=== PATIENT | female | born 1950 | race Caucasian/White ===

== ENCOUNTER 2021-08-11 08:27 | Outpatient (REF) | payer MEDICARE, SELFPAY ==
[2021-08-11 09:59] LABS: MANUAL DIFF FLAG NO
[2021-08-11 10:22] LABS: Basophils Percent Auto 0.9 % (0-2); Eosinophils Percent Auto 0.9 % (0-4); Hematocrit 36.3 % (37.0-47.0); Hemoglobin 11.6 g/dl (12.0-16.0); Imm Gran Abs Auto 0.01 X10*3/uL (0.00-0.03); Imm Gran Pct Auto 0.2 % (0.0-0.4); Lymphocytes Absolute Auto 1.2 X10*3/uL (1.2-4.9); Lymphocytes Percent Auto 27.2 % (20-40); Mean Corpuscular Volume 97.1 fL (80.0-98.0); Mean Platelet Volume 10.7 fL (9.4-12.3); Monocytes Absolute Auto 0.4 X10*3/uL (0.1-1.2); Monocytes Percent Auto 8.8 % (2-11); Neutrophils Absolute Auto 2.7 x10*3/uL (2.0-8.3); Platelet Count 227 X10*3/uL (160-400); Red Blood Count 3.74 X10*6/uL (4.20-5.50); Red Cell Distribution Width 14.8 % (11.0-16.0); White Blood Count 4.3 X10*3/uL (4.8-10.8)
[2021-08-11 10:53] LABS: Alanine Aminotransferase 11 U/L (0-31); Aspartate Amino Transferase 20 U/L (5-31); C Reactive Protein 0.23 mg/dL (< or = 0.50); Estimated Glomerular Filt Rate > 60
[2021-08-11 11:16] LABS: Erythrocyte Sedimentation Rate 21 MM/HR (0-20)
== END 2021-08-11 08:28 | disposition home or self-care (01) ==
LOC: HO.LAB 08:27
PROVIDERS: PCP Internal Medicine; Visit Provider Internal Medicine Rheumatology
DX: M05.9 Rheumatoid arthritis with rheumatoid factor, unspecified (principal); M16.0 Bilateral primary osteoarthritis of hip; R63.5 Abnormal weight gain; Z79.899 Other long term (current) drug therapy
CPT/HCPCS: 36415; 82565; 84443; 84450; 84460; 85025; 85652; 86140

== ENCOUNTER 2021-10-27 11:03 | Outpatient (REF) | payer MEDICARE, SELFPAY ==
[2021-10-27 11:31] LABS: MANUAL DIFF FLAG NO
[2021-10-27 12:31] LABS: Basophils Absolute Auto 0.1 X10*3/uL (0.0-0.2); Basophils Percent Auto 1.2 % (0-2); Eosinophils Absolute Auto 0.1 X10*3/uL (0.0-0.4); Eosinophils Percent Auto 1.2 % (0-4); Hematocrit 34.8 % (37.0-47.0); Hemoglobin 11.3 g/dl (12.0-16.0); Imm Gran Abs Auto 0.01 X10*3/uL (0.00-0.03); Imm Gran Pct Auto 0.2 % (0.0-0.4); Lymphocytes Absolute Auto 1.3 X10*3/uL (1.2-4.9); Lymphocytes Percent Auto 29.1 % (20-40); Mean Corpuscular HGB Conc 32.5 g/dl (31.0-35.0); Mean Corpuscular Hemoglobin 31.2 pg (27.0-33.0); Mean Corpuscular Volume 96.1 fL (80.0-98.0); Mean Platelet Volume 11.3 fL (9.4-12.3); Monocytes Absolute Auto 0.4 X10*3/uL (0.1-1.2); Monocytes Percent Auto 10.3 % (2-11); Neutrophils Absolute Auto 2.5 x10*3/uL (2.0-8.3); Platelet Count 246 X10*3/uL (160-400); Red Blood Count 3.62 X10*6/uL (4.20-5.50); Red Cell Distribution Width 14.4 % (11.0-16.0); White Blood Count 4.3 X10*3/uL (4.8-10.8)
[2021-10-27 12:57] LABS: Alanine Aminotransferase 11 U/L (0-31); Aspartate Amino Transferase 19 U/L (5-31); Estimated Glomerular Filt Rate > 60
[2021-10-27 13:10] LABS: Erythrocyte Sedimentation Rate 18 MM/HR (0-20)
== END 2021-10-27 11:04 | disposition home or self-care (01) ==
LOC: HO.LAB 11:03
PROVIDERS: Visit Provider Internal Medicine Rheumatology
DX: M05.9 Rheumatoid arthritis with rheumatoid factor, unspecified (principal); Z79.899 Other long term (current) drug therapy
CPT/HCPCS: 36415; 82565; 84450; 84460; 85025; 85652; 86140

== ENCOUNTER 2021-12-09 07:53 | Emergency (ER) | payer MEDICARE, SELFPAY ==
--- NOTE | ~2021-12-09 | XR_ITS ---
EXAMINATION: XR CHEST CLINICAL INFORMATION: Chest pain. COMPARISON: None TECHNIQUE: Frontal view of the chest was obtained. FINDINGS: No significant abnormality is noted involving the heart, lungs, mediastinum, bony thorax or soft tissues. XR/XR chest 1V IMPRESSION: No acute cardiopulmonary process.
--- NOTE | 2021-12-09 07:52 | ECG_ITS ---
Test Reason : CHEST PAIN Blood Pressure : / mmHG Vent. Rate : 096 BPM Atrial Rate : 096 BPM P-R Int : 156 ms QRS Dur : 086 ms QT Int : 344 ms P-R-T Axes : 056 036 043 degrees QTc Int : 434 ms Normal sinus rhythm Cannot rule out Anterior infarct , age undetermined Abnormal ECG No previous ECGs available Referred By: Whitney Pickering Electronically Signed By:GLADYS SALCEDO
[2021-12-09 08:10] VITALS: BP 149/75; PULSE 97; RESP 13; TEMP 37.2; O2SAT 95; BMI 23.8
[2021-12-09 08:14] VITALS: BP 149/75; PULSE 92; RESP 16; TEMP 37.2; O2SAT 96
--- NOTE | 2021-12-09 08:17 | ED_ITS ---
HPI - Chest Pain General Chief Complaint: Chest Pain Stated Complaint: chest pain, dizzy Time Seen by Provider: 12/09/21 08:05 Source: patient Mode of arrival: ambulatory History of Present Illness HPI narrative: 71-year-old female with a past medical history rheumatoid arthritis presenting to the ED complaining chest tightness/pressure and feeling like she can not catch her breath since last night. Admits symptoms have improved since onset. Does report feeling lightheaded this morning. Denies headache, cough, fever, chills, abdominal pain, nausea/vomiting, pedal edema, calf pain. Does admit to being COVID-19 positive about 3 weeks ago MD complaint: chest heaviness and chest discomfort Onset (ago): hour(s) Related Data Home Medications Medication Instructions Recorded Confirmed cholecalciferol (vitamin D3) 25 25 mcg PO DAILY 08/11/21 08/11/21 mcg (1,000 unit) capsule hydroxychloroquine 200 mg tablet 200 mg PO DAILY 08/11/21 08/11/21 (Plaquenil) meloxicam 15 mg tablet 15 mg PO DAILY PRN 08/11/21 08/11/21 sennosides 8.6 mg-docusate sodium 1 tab-cap PO BEDTIME PRN 08/11/21 08/11/21 50 mg tablet (Senokot-S) Previous Rx's Medication Instructions Recorded methotrexate sodium 2.5 mg tablet 15 mg PO QWEEK #72 tabs 08/11/21 folic acid 1 mg tablet 1 mg PO DAILY #90 tabs 09/09/21 cefuroxime axetil 250 mg tablet 250 mg PO BID 7 days #14 tabs 12/09/21 Allergies Allergy/AdvReac Type Severity Reaction Status Date / Time diphtheria,pertussis Allergy Severe throat Verified 08/11/21 08:52 (acellular),te closing [From Boostrix Tdap] influenza virus vaccine tv Allergy Severe throat Verified 08/11/21 08:52 splt (4 yr,up) closing [From Fluvirin] mannitol [From Reclast] Allergy Severe throat Verified 08/11/21 08:52 closing water for injection,sterile Allergy Severe throat Verified 08/11/21 08:52 [From Reclast] closing zoledronic acid Allergy Severe throat Verified 08/11/21 08:52 [From Reclast] closing Sulfa (Sulfonamide Allergy Intermediate rash Verified 08/11/21 08:50 Antibiotics) Review of Systems Review of Systems: Constitutional: No Fever, No Chills, No Fatigue, No Malaise ENT/Mouth: No Ear Pain, No Nasal Congestion, No sore throat, No Rhinorrhea, No Swallowing Difficulty Eyes: No Eye Pain, No Swelling, No Redness, No Foreign Body, No Discharge, No Vision Changes Cardiovascular: + Chest Pain, + SOB, No Dyspnea on Exertion, No Orthopnea, No Edema, No Palpitations Respiratory: No Cough, No Sputum, No Wheezing, No Dyspnea Gastrointestinal: No Nausea, No Vomiting, No Diarrhea, No Constipation, No Abdominal pain Genitourinary: No Dysuria, No Urinary Frequency, No Hematuria, No Urinary Incontinence/retention, No Flank Pain Musculoskeletal: No joint pain, No Myalgias, No Joint Swelling Skin: No Skin Lesions, No rash Neuro: No Weakness, No Numbness, No Paresthesias, No Loss of Consciousness, + lightheaded, No Headache Yes all other systems are reviewed and are negative Constitutional: Constitutional: Reports as per [facility] Past Medical History Attestation statement: The following information was validated with the patient. Medical History (Updated 12/09/21 @ 12:06 by JALEEL Rockwell) Long-term use of immunosuppressant medication Osteoarthritis of hips, bilateral Seropositive rheumatoid arthritis Social History Social History (Updated 08/11/21 @ 08:39 by Edy Disla LPN) Household Members: Significant Other Housing: House Are you a primary daycare manager to a significant other at home: No Do you presently have visiting nurse or other home services: No Alcohol intake: never Patient Tobacco Use Status: Never used Tobacco Use of substances other than those prescribed or required for medical reasons: No Advance Directives: No Advance Directives Information Provided: Yes service: No Current occupation: [employer] Physical Exam Vital Signs: Vital Signs: Last Vital Signs Temp 98.5 F 12/09/21 09:49 Pulse 91 12/09/21 09:49 Resp 14 12/09/21 09:49 BP 141/79 H 12/09/21 09:49 Pulse Ox 98 12/09/21 09:49 O2 Del Method 12/09/21 09:49 BMI result Body Mass Index 23.8 Const: General: cooperative, healthy appearing and no acute distress Orientation/consciousness: patient oriented x3 Limitations: no limitations HEENT: Head: Yes normal to inspection and Yes atraumatic Ears: hearing grossly normal bilaterally General nose exam: Normal external nose present Face and sinus: Yes normal facial exam Eyes: General: appearance normal, both eyes and all related structures EOM: EOMs intact bilaterally Neck: Neck: Yes normal visual inspection and Yes no meningeal signs Resp: Effort & Inspection: normal respiratory effort and no respiratory distress Auscultation: clear to auscultation bilaterally, crackles bilateral at the base, no rales, no rhonchi and no wheezes Cardio: Rate: regular rate Heart sounds: S1 normal heart sound present and S2 normal heart sound present GI: Inspection: Yes normal to inspection Palpation (GI): Soft to palpation, nontender, no guarding and not rigid : General: Yes no CVA tenderness Back/Spine/Pelvis: Back: no CVA tenderness Skin: Rashes: no rashes Wounds: no wounds Neuro: General: patient oriented x3, tone normal and no meningeal signs Gait exam (Neuro): Normal gait present Extrem: General: Yes normal to inspection, Yes no pedal edema and Yes no calf tenderness Course Course Course Narrative: -no leukocytosis. H&H stable. Initial troponin 5.9 > will obtain 3 hour repeat. UA infected patient given p.o. Ceftin -BNP 104 XR chest 1V IMPRESSION: No acute cardiopulmonary process. -1204--repeat troponin 4.4, VT unlikely. Results discussed with patient including worrisome signs and symptoms and strict return precautions, and when to return to the emergency department. They verbalized understanding and feel safe for discharge at this time. MDM - Chest Pain MDM Narrative Medical decision making narrative: 71-year-old female with a past medical history rheumatoid arthritis presenting to the ED complaining chest tightness/pressure and feeling like she can not catch her breath since last night. On exam VSS, NAD, well appearing, lungs with slight bibasilar crackles, no calf tenderness or pedal edema. Concern for ACS vs ? CHF vs pneumonia. Symptoms atypical for PE/DVT. Lower suspicion for viral syndrome Plan: EKG, labs, UA, CXR, orthostatics, re-evaluate Differential Diagnosis Differential diagnosis: Likely stable angina, unstable angina pectoris, atypical chest pain, st elevation myocardial infarction and chest pain Medical Records Data Attestation: I reviewed the patient's medical records. Lab Data Attestation: I reviewed the patient's lab results. Result diagrams: 12/09/21 08:32 12/09/21 08:32 Labs: Lab Results 12/09/21 12/09/21 12/09/21 Range/Units 08:31 08:31 08:32 WBC 6.8 (4.8-10.8) X10*3/uL RBC 3.87 L (4.20-5.50) X10*6/uL Hgb 12.2 (12.0-16.0) g/dl Hct 36.3 L (37.0-47.0) % MCV 93.8 (80.0-98.0) fL MCH 31.5 (27.0-33.0) pg MCHC 33.6 (31.0-35.0) g/dl RDW 14.2 (11.0-16.0) % Plt Count 215 (160-400) X10*3/uL MPV 10.7 (9.4-12.3) fL Immature Gran % (Auto) 0.3 (0.0-0.4) % Neut % (Auto) 80.8 H (45-73) % Lymph % (Auto) 9.0 L (20-40) % Lyman % (Auto) 9.2 (2-11) % Eos % (Auto) 0.3 (0-4) % Baso % (Auto) 0.4 (0-2) % Lymph # (Auto) 0.6 L (1.2-4.9) X10*3/uL Lyman # (Auto) 0.6 (0.1-1.2) X10*3/uL Eos # (Auto) 0.0 (0.0-0.4) X10*3/uL Baso # (Auto) 0.0 (0.0-0.2) X10*3/uL Abs Immat Gran (auto) 0.02 (0.00-0.03) X10*3/uL Absolute Neuts (auto) 5.5 (2.0-8.3) x10*3/uL Absolute Nucleated RBC 0.000 (0.0-0.012) X10*3/uL Nucleated RBC % (auto) 0.0 (0.0-0.2) /100WBC Sodium (135-145) mmol/L Potassium (3.3-5.1) mmol/L Chloride (96-108) mmol/L Carbon Dioxide (22-29) mmol/L Anion Gap (12-20) BUN (9-16) mg/dL Creatinine (0.5-1.4) mg/dL Estim Creat Clear Calc Estimated GFR Random Glucose (60-115) mg/dL Calcium (8.4-10.2) mg/dL Magnesium (1.6-2.6) mg/dL Total Bilirubin (0.0-1.0) mg/dL Direct Bilirubin (0.0-0.5) mg/dL AST (5-31) U/L ALT (0-31) U/L Alkaline Phosphatase (39-117) U/L Troponin I High Sens 5.9 (<3.5-17.0) ng/L B-Natriuretic Peptide 104 H (<100) pg/mL Total Protein (6.5-8.0) g/dL Albumin (3.5-5.0) g/dL Urine Color Urine Appearance Urine pH (5.0-8.0) Ur Specific [place] (1.005-1.025) Urine Protein (Neg-Trace) mg/dL Urine Glucose (UA) (Negative) mg/dL Urine Ketones (Negative) mg/dL Urine Blood (Negative) Urine Nitrite (Negative) Ur Leukocyte Esterase (Negative) Urine RBC (0-2) /HPF Urine WBC (0-5) /HPF Ur Squamous Epith Cells (0-2) /HPF Urine Bacteria (None Seen) Hyaline Casts (0-2) /LPF 12/09/21 12/09/21 12/09/21 Range/Units 08:32 09:04 11:31 WBC (4.8-10.8) X10*3/uL RBC (4.20-5.50) X10*6/uL Hgb (12.0-16.0) g/dl Hct (37.0-47.0) % MCV (80.0-98.0) fL MCH (27.0-33.0) pg MCHC (31.0-35.0) g/dl RDW (11.0-16.0) % Plt Count (160-400) X10*3/uL MPV (9.4-12.3) fL Immature Gran % (Auto) (0.0-0.4) % Neut % (Auto) (45-73) % Lymph % (Auto) (20-40) % Lyman % (Auto) (2-11) % Eos % (Auto) (0-4) % Baso % (Auto) (0-2) % Lymph # (Auto) (1.2-4.9) X10*3/uL Lyman # (Auto) (0.1-1.2) X10*3/uL Eos # (Auto) (0.0-0.4) X10*3/uL Baso # (Auto) (0.0-0.2) X10*3/uL Abs Immat Gran (auto) (0.00-0.03) X10*3/uL Absolute Neuts (auto) (2.0-8.3) x10*3/uL Absolute Nucleated RBC (0.0-0.012) X10*3/uL Nucleated RBC % (auto) (0.0-0.2) /100WBC Sodium 141 (135-145) mmol/L Potassium 4.0 (3.3-5.1) mmol/L Chloride 102 (96-108) mmol/L Carbon Dioxide 29 (22-29) mmol/L Anion Gap 14 (12-20) BUN 13 (9-16) mg/dL Creatinine 0.78 (0.5-1.4) mg/dL Estim Creat Clear Calc 52.3 Estimated GFR > 60 Random Glucose 113 (60-115) mg/dL Calcium 9.7 (8.4-10.2) mg/dL Magnesium 1.9 (1.6-2.6) mg/dL Total Bilirubin 0.7 (0.0-1.0) mg/dL Direct Bilirubin 0.3 (0.0-0.5) mg/dL AST 16 (5-31) U/L ALT 7 (0-31) U/L Alkaline Phosphatase 68 (39-117) U/L Troponin I High Sens 4.4 (<3.5-17.0) ng/L B-Natriuretic Peptide (<100) pg/mL Total Protein 6.6 (6.5-8.0) g/dL Albumin 4.1 (3.5-5.0) g/dL Urine Color Yellow Urine Appearance Clear Urine pH 7.5 (5.0-8.0) Ur Specific [place] 1.010 (1.005-1.025) Urine Protein Negative (Neg-Trace) mg/dL Urine Glucose (UA) Negative (Negative) mg/dL Urine Ketones Negative (Negative) mg/dL Urine Blood Negative (Negative) Urine Nitrite Positive H (Negative) Ur Leukocyte Esterase Small (1+) H (Negative) Urine RBC 0-2 (0-2) /HPF Urine WBC 0-5 (0-5) /HPF Ur Squamous Epith Cells 0-2 (0-2) /HPF Urine Bacteria 4+ (None Seen) Hyaline Casts 0-2 (0-2) /LPF ECG Data ECG #1: Attestation: I personally reviewed and interpreted this ECG as follows: ECG interpretation date: 12/09/21 ECG interpretation time: 07:52 Interpretation: EKG normal sinus rhythm at a rate of 96. Pr interval 156. QTC 434. No STEMI Discharge Plan Discharge Clinical Impression: Atypical chest pain, Acute UTI Patient Disposition: Home, Self-Care Instructions: Chest Pain (ED), Urinary Tract Infection in Women (ED) Additional Instructions: Your blood work was reassuring today in the emergency department. Her chest x- ray was unremarkable. You do have a urinary tract infection, Ceftin as an antibiotic please take as prescribed Please have close follow-up with her doctor/cardiology. If symptoms persist or worsen, become more constant, constant worsening chest pain, shortness of breath or fever, or swelling in her lower extremities return to the emergency department Prescriptions: New cefuroxime axetil 250 mg tablet 250 mg PO BID 7 Days Qty: 14 0RF No Action folic acid 1 mg tablet 1 mg PO DAILY Qty: 90 3RF hydroxychloroquine [Plaquenil] 200 mg tablet 200 mg PO DAILY meloxicam 15 mg tablet 15 mg PO DAILY PRN cholecalciferol (vitamin D3) 25 mcg (1,000 unit) capsule 25 mcg PO DAILY sennosides-docusate sodium [Senokot-S] 8.6-50 mg tablet 1 tab-cap PO BEDTIME PRN methotrexate sodium 2.5 mg tablet 15 mg PO QWEEK Qty: 72 1RF Referrals: ED Physician,Generic [Emergency Provider] - Cain Stanley MD [Physician] - 1 week
[2021-12-09 08:36] LABS: MANUAL DIFF FLAG NO
[2021-12-09 08:37] VITALS: BP 147/72; PULSE 93
[2021-12-09 08:39] VITALS: BP 145/76; PULSE 92
[2021-12-09 08:40] VITALS: BP 136/82; PULSE 99
[2021-12-09 08:41] LABS: Basophils Percent Auto 0.4 % (0-2); Eosinophils Percent Auto 0.3 % (0-4); Hematocrit 36.3 % (37.0-47.0); Hemoglobin 12.2 g/dl (12.0-16.0); Imm Gran Abs Auto 0.02 X10*3/uL (0.00-0.03); Imm Gran Pct Auto 0.3 % (0.0-0.4); Lymphocytes Absolute Auto 0.6 X10*3/uL (1.2-4.9); Mean Corpuscular HGB Conc 33.6 g/dl (31.0-35.0); Mean Corpuscular Hemoglobin 31.5 pg (27.0-33.0); Mean Corpuscular Volume 93.8 fL (80.0-98.0); Mean Platelet Volume 10.7 fL (9.4-12.3); Monocytes Absolute Auto 0.6 X10*3/uL (0.1-1.2); Monocytes Percent Auto 9.2 % (2-11); Neutrophils Absolute Auto 5.5 x10*3/uL (2.0-8.3); Neutrophils Percent Auto 80.8 % (45-73); Platelet Count 215 X10*3/uL (160-400); Red Blood Count 3.87 X10*6/uL (4.20-5.50); Red Cell Distribution Width 14.2 % (11.0-16.0); White Blood Count 6.8 X10*3/uL (4.8-10.8)
[2021-12-09 08:58] LABS: Alanine Aminotransferase 7 U/L (0-31); Albumin Level 4.1 g/dL (3.5-5.0); Alkaline Phosphatase 68 U/L (39-117); Anion Gap 14 (12-20); Aspartate Amino Transferase 16 U/L (5-31); Bilirubin Direct 0.3 mg/dL (0.0-0.5); Bilirubin Total 0.7 mg/dL (0.0-1.0); Blood Urea Nitrogen 13 mg/dL (9-16); Calcium 9.7 mg/dL (8.4-10.2); Carbon Dioxide 29 mmol/L (22-29); Chloride 102 mmol/L (96-108); Creatinine Clr Calc Pharmacy 52.3; Estimated Glomerular Filt Rate > 60; Glucose Random 113 mg/dL (60-115); Magnesium 1.9 mg/dL (1.6-2.6); Sodium 141 mmol/L (135-145); Total Protein 6.6 g/dL (6.5-8.0)
[2021-12-09 09:01] LABS: B Type Natriuretic Peptide 104 pg/mL (<100)
[2021-12-09 09:06] LABS: Troponin-I High Sensitivity 5.9 ng/L (<3.5-17.0)
[2021-12-09 09:13] LABS: Appearance Urine Clear; Color Urine Yellow; Glucose Urine UA Negative (Negative); Leukocyte Esterase Urine Small (1+) (Negative); Nitrite Urine Positive (Negative); PH 7.5 (5.0-8.0); Urine Blood Negative (Negative); Urine Ketones Negative (Negative); Urine Protein Negative (Neg-Trace)
[2021-12-09 09:49] VITALS: BP 141/79; PULSE 91; RESP 14; TEMP 36.9; O2SAT 98
[2021-12-09 09:54] LABS: Bacteria Urine 4+ (None Seen); Hyaline Casts Urine 0-2 /LPF (0-2); RBC Urine 0-2 /HPF (0-2); Squamous Epithelial Cell Urine 0-2 /HPF (0-2); UACC Culture Trigger YES; WBC Urine 0-5 /HPF (0-5)
[2021-12-09 11:55] LABS: Troponin-I High Sensitivity 4.4 ng/L (<3.5-17.0)
== END 2021-12-09 12:17 | disposition home or self-care (01) ==
PROVIDERS: Physician Assistant; Emergency Provider Emergency Medicine
DX: R07.89 Other chest pain (principal); N39.0 Urinary tract infection, site not specified; B96.20 Unspecified Escherichia coli [E. coli] as the cause of diseases classified elsewhere; R06.02 Shortness of breath
CPT/HCPCS: 36415; 71045; 80048; 80076; 81001; 83735; 83880; 84484; 85025; 87086; 87088; 87186; 93005; 99283; 99284

== ENCOUNTER 2021-12-16 13:24 | Outpatient (REF) | payer MEDICARE, SELFPAY ==
[2021-12-16 15:08] LABS: Iron 71 mcg/dL (30-160); Percent Iron Saturation 27 % (15-50); Total Iron Binding Capacity 260 mcg/dL (228-428); Unsaturated Iron Binding 189 ug/dL
[2021-12-16 16:33] LABS: Vitamin B12 209 pg/mL (200-900)
== END 2021-12-16 13:25 | disposition home or self-care (01) ==
LOC: HO.LAB 13:24
PROVIDERS: PCP Internal Medicine; Visit Provider Internal Medicine Rheumatology
DX: D64.9 Anemia, unspecified (principal); M05.9 Rheumatoid arthritis with rheumatoid factor, unspecified
CPT/HCPCS: 36415; 82607; 83540

== ENCOUNTER → 2021-12-22 07:50 | Outpatient (BNVA) | payer MEDICARE, SELFPAY | PROVIDERS: PCP Internal Medicine; Visit Provider Internal Medicine Rheumatology | DX: M05.9 Rheumatoid arthritis with rheumatoid factor, unspecified (principal); Z79.899 Other long term (current) drug therapy; Z86.16 Personal history of COVID-19 | CPT/HCPCS: 99212 ==

== ENCOUNTER 2022-02-23 09:24 | Outpatient (REF) | payer MEDICARE, SELFPAY ==
[2022-02-23 10:06] LABS: MANUAL DIFF FLAG NO
[2022-02-23 10:56] LABS: Basophils Percent Auto 0.8 % (0-2); Eosinophils Percent Auto 0.8 % (0-4); Hematocrit 34.3 % (37.0-47.0); Hemoglobin 11.2 g/dl (12.0-16.0); Imm Gran Abs Auto 0.01 X10*3/uL (0.00-0.03); Imm Gran Pct Auto 0.3 % (0.0-0.4); Lymphocytes Absolute Auto 1.1 X10*3/uL (1.2-4.9); Lymphocytes Percent Auto 28.2 % (20-40); Mean Corpuscular HGB Conc 32.7 g/dl (31.0-35.0); Mean Corpuscular Hemoglobin 31.7 pg (27.0-33.0); Mean Corpuscular Volume 97.2 fL (80.0-98.0); Mean Platelet Volume 11.2 fL (9.4-12.3); Monocytes Absolute Auto 0.4 X10*3/uL (0.1-1.2); Monocytes Percent Auto 11.6 % (2-11); Neutrophils Absolute Auto 2.2 x10*3/uL (2.0-8.3); Neutrophils Percent Auto 58.3 % (45-73); Platelet Count 239 X10*3/uL (160-400); Red Blood Count 3.53 X10*6/uL (4.20-5.50); Red Cell Distribution Width 14.6 % (11.0-16.0); White Blood Count 3.7 X10*3/uL (4.8-10.8)
[2022-02-23 11:45] LABS: Alanine Aminotransferase 12 U/L (0-31); Aspartate Amino Transferase 20 U/L (5-31); C Reactive Protein 0.04 mg/dL (< or = 0.50); Estimated Glomerular Filt Rate > 60
[2022-02-23 11:50] LABS: Erythrocyte Sedimentation Rate 16 MM/HR (0-20)
== END 2022-02-23 09:25 | disposition home or self-care (01) ==
LOC: HO.LAB 09:24
PROVIDERS: PCP Internal Medicine; Visit Provider Internal Medicine Rheumatology
DX: M05.9 Rheumatoid arthritis with rheumatoid factor, unspecified (principal); Z79.899 Other long term (current) drug therapy
CPT/HCPCS: 36415; 82565; 84450; 84460; 85025; 85652; 86140

== ENCOUNTER 2022-04-20 09:54 | Outpatient (REF) | payer MEDICARE, SELFPAY ==
[2022-04-20 10:12] LABS: MANUAL DIFF FLAG NO
[2022-04-20 10:38] LABS: Basophils Percent Auto 1.1 % (0-2); Eosinophils Percent Auto 1.1 % (0-4); Hematocrit 36.3 % (37.0-47.0); Hemoglobin 11.7 g/dl (12.0-16.0); Imm Gran Abs Auto 0.01 X10*3/uL (0.00-0.03); Imm Gran Pct Auto 0.3 % (0.0-0.4); Lymphocytes Absolute Auto 1.1 X10*3/uL (1.2-4.9); Mean Corpuscular HGB Conc 32.2 g/dl (31.0-35.0); Mean Corpuscular Hemoglobin 31.6 pg (27.0-33.0); Mean Corpuscular Volume 98.1 fL (80.0-98.0); Mean Platelet Volume 10.4 fL (9.4-12.3); Monocytes Absolute Auto 0.4 X10*3/uL (0.1-1.2); Monocytes Percent Auto 10.6 % (2-11); Neutrophils Absolute Auto 2.1 x10*3/uL (2.0-8.3); Neutrophils Percent Auto 56.9 % (45-73); Platelet Count 315 X10*3/uL (160-400); Red Cell Distribution Width 13.7 % (11.0-16.0); White Blood Count 3.6 X10*3/uL (4.8-10.8)
[2022-04-20 11:07] LABS: Alanine Aminotransferase 7 U/L (0-31); Aspartate Amino Transferase 16 U/L (5-31); C Reactive Protein 0.41 mg/dL (< or = 0.50); Estimated Glomerular Filt Rate > 60
[2022-04-20 17:01] LABS: Erythrocyte Sedimentation Rate 29 MM/HR (0-20)
== END 2022-04-20 09:55 | disposition home or self-care (01) ==
LOC: HO.LAB 09:54
PROVIDERS: PCP Internal Medicine; Visit Provider Internal Medicine Rheumatology
DX: M05.9 Rheumatoid arthritis with rheumatoid factor, unspecified (principal); Z79.899 Other long term (current) drug therapy
CPT/HCPCS: 36415; 82565; 84450; 84460; 85025; 85652; 86140

== ENCOUNTER → 2022-04-27 08:42 | Outpatient (BNVA) | payer MEDICARE, SELFPAY | PROVIDERS: PCP Internal Medicine; Visit Provider Internal Medicine Rheumatology | DX: M05.9 Rheumatoid arthritis with rheumatoid factor, unspecified (principal); Z79.899 Other long term (current) drug therapy | CPT/HCPCS: 99212 ==

== ENCOUNTER 2022-06-15 12:10 | Outpatient (REF) | payer MEDICARE, SELFPAY ==
[2022-06-15 12:28] LABS: MANUAL DIFF FLAG NO
[2022-06-15 12:44] LABS: Basophils Absolute Auto 0.1 X10*3/uL (0.0-0.2); Basophils Percent Auto 1.1 % (0-2); Eosinophils Absolute Auto 0.1 X10*3/uL (0.0-0.4); Eosinophils Percent Auto 1.5 % (0-4); Hematocrit 35.6 % (37.0-47.0); Hemoglobin 11.7 g/dl (12.0-16.0); Imm Gran Abs Auto 0.01 X10*3/uL (0.00-0.03); Imm Gran Pct Auto 0.2 % (0.0-0.4); Lymphocytes Absolute Auto 1.1 X10*3/uL (1.2-4.9); Lymphocytes Percent Auto 24.7 % (20-40); Mean Corpuscular HGB Conc 32.9 g/dl (31.0-35.0); Mean Corpuscular Hemoglobin 31.4 pg (27.0-33.0); Mean Corpuscular Volume 95.4 fL (80.0-98.0); Mean Platelet Volume 10.9 fL (9.4-12.3); Monocytes Absolute Auto 0.5 X10*3/uL (0.1-1.2); Monocytes Percent Auto 10.3 % (2-11); Neutrophils Absolute Auto 2.9 x10*3/uL (2.0-8.3); Neutrophils Percent Auto 62.2 % (45-73); Platelet Count 216 X10*3/uL (160-400); Red Blood Count 3.73 X10*6/uL (4.20-5.50); Red Cell Distribution Width 14.5 % (11.0-16.0); White Blood Count 4.6 X10*3/uL (4.8-10.8)
[2022-06-15 13:17] LABS: Alanine Aminotransferase 9 U/L (0-31); Aspartate Amino Transferase 18 U/L (5-31); Estimated Glomerular Filt Rate > 60
[2022-06-15 13:40] LABS: Erythrocyte Sedimentation Rate 23 MM/HR (0-20)
== END 2022-06-15 12:11 | disposition home or self-care (01) ==
LOC: HO.LAB 12:10
PROVIDERS: PCP Internal Medicine; Visit Provider Internal Medicine Rheumatology
DX: M05.9 Rheumatoid arthritis with rheumatoid factor, unspecified (principal); Z79.899 Other long term (current) drug therapy
CPT/HCPCS: 36415; 82565; 84450; 84460; 85025; 85652; 86140

== ENCOUNTER 2022-09-12 08:40 | Outpatient (REF) | payer MEDICARE, SELFPAY ==
[2022-09-12 09:04] LABS: MANUAL DIFF FLAG NO
[2022-09-12 09:33] LABS: Basophils Percent Auto 0.7 % (0-2); Eosinophils Absolute Auto 0.1 X10*3/uL (0.0-0.4); Eosinophils Percent Auto 1.4 % (0-4); Hematocrit 36.1 % (37.0-47.0); Hemoglobin 11.9 g/dl (12.0-16.0); Imm Gran Abs Auto 0.01 X10*3/uL (0.00-0.03); Imm Gran Pct Auto 0.2 % (0.0-0.4); Lymphocytes Absolute Auto 1.2 X10*3/uL (1.2-4.9); Mean Corpuscular Hemoglobin 31.7 pg (27.0-33.0); Mean Corpuscular Volume 96.3 fL (80.0-98.0); Mean Platelet Volume 10.8 fL (9.4-12.3); Monocytes Absolute Auto 0.4 X10*3/uL (0.1-1.2); Monocytes Percent Auto 10.5 % (2-11); Neutrophils Absolute Auto 2.4 x10*3/uL (2.0-8.3); Neutrophils Percent Auto 58.2 % (45-73); Platelet Count 235 X10*3/uL (160-400); Red Blood Count 3.75 X10*6/uL (4.20-5.50); Red Cell Distribution Width 14.6 % (11.0-16.0); White Blood Count 4.2 X10*3/uL (4.8-10.8)
[2022-09-12 10:07] LABS: Alanine Aminotransferase 12 U/L (0-31); Aspartate Amino Transferase 19 U/L (5-31); C Reactive Protein 0.13 mg/dL (< or = 0.50); Estimated Glomerular Filt Rate > 60
[2022-09-12 10:18] LABS: Erythrocyte Sedimentation Rate 17 MM/HR (0-20)
== END 2022-09-12 08:41 | disposition home or self-care (01) ==
LOC: HO.LAB 08:40
PROVIDERS: PCP Internal Medicine; Visit Provider Internal Medicine Rheumatology
DX: M05.9 Rheumatoid arthritis with rheumatoid factor, unspecified (principal); Z79.899 Other long term (current) drug therapy
CPT/HCPCS: 36415; 82565; 84450; 84460; 85025; 85652; 86140

== ENCOUNTER 2022-09-14 09:14 | Outpatient (REF) | payer MEDICARE, SELFPAY ==
--- NOTE | ~2022-09-14 | XR_ITS ---
EXAMINATION: XR BILATERAL HAND CLINICAL INFORMATION: Rheumatoid arthritis with rheumatoid factor. COMPARISON: None available. TECHNIQUE: 3 views of each hand. FINDINGS: RIGHT HAND: There is mild 1st metacarpophalangeal joint subluxation. Mild reduction of PIP and DIP joints with periarticular spurring PIP joint 1st digit and DIP joint 2nd and the 5th digits are noted. There is a mild extra-articular osteopenia No acute fracture or soft tissue swelling seen. There is an old ulnar styloid process fracture noted. LEFT HAND: There is mild loss of PIP and DIP joint spaces all digits without spurring or bony erosive changes. There is mild juxta-articular osteopenia. No acute fracture or dislocation seen. There is mild soft tissue swelling PIP and DIP joints. XR/XR hand LT min 3V IMPRESSION: 1. Mild degenerative changes PIP and DIP joints both digits. There is juxta-articular osteopenia more suggestive of early rheumatoid arthritis. 2. No acute fracture or dislocation seen.
--- NOTE | ~2022-09-14 | XR_ITS ---
EXAMINATION: XR BILATERAL HAND CLINICAL INFORMATION: Rheumatoid arthritis with rheumatoid factor. COMPARISON: None available. TECHNIQUE: 3 views of each hand. FINDINGS: RIGHT HAND: There is mild 1st metacarpophalangeal joint subluxation. Mild reduction of PIP and DIP joints with periarticular spurring PIP joint 1st digit and DIP joint 2nd and the 5th digits are noted. There is a mild extra-articular osteopenia No acute fracture or soft tissue swelling seen. There is an old ulnar styloid process fracture noted. LEFT HAND: There is mild loss of PIP and DIP joint spaces all digits without spurring or bony erosive changes. There is mild juxta-articular osteopenia. No acute fracture or dislocation seen. There is mild soft tissue swelling PIP and DIP joints. XR/XR hand RT min 3V IMPRESSION: 1. Mild degenerative changes PIP and DIP joints both digits. There is juxta-articular osteopenia more suggestive of early rheumatoid arthritis. 2. No acute fracture or dislocation seen.
[2022-09-14 12:06] LABS: HBS Num1 0.32 mIU/mL (0-7.99); HBc Num1 0.11 S/CO (0.00-0.79); HBsAGNum1 0.42 S/CO (0.00-0.99); Hepatitis A Antibody IgM 0.28 Index (0-0.79); Hepatitis B Core Antibody Nonreactive (Nonreactive); Hepatitis B Surface Antigen Negative (Negative); ~HepC Num1 0.07 S/CO (0.00-0.79); ~Hepatitis A Antibody IgM Nonreactive (Nonreactive); ~Hepatitis B Surface Antibody NONREACTIVE (Nonreactive); ~Hepatitis C Antibody Nonreactive (Nonreactive)
[2022-09-16 20:27] LABS: TS Negative Control Passed; TS Panel A 0; TS Panel B 0; TS Positive Control Passed; TSpotTB Negative (Negative)
== END 2022-09-14 09:15 | disposition home or self-care (01) ==
LOC: HO.LAB 09:14
PROVIDERS: PCP Internal Medicine; Visit Provider Internal Medicine Rheumatology
DX: M05.9 Rheumatoid arthritis with rheumatoid factor, unspecified (principal); M16.0 Bilateral primary osteoarthritis of hip; Z79.899 Other long term (current) drug therapy
CPT/HCPCS: 36415; 73130; 86481; 86704; 86706; 86709; 86803; 87340; 99212

== ENCOUNTER 2022-11-16 08:51 | Outpatient (REF) | payer MEDICARE, SELFPAY ==
[2022-11-16 09:19] LABS: MANUAL DIFF FLAG NO
[2022-11-16 10:26] LABS: Basophils Absolute Auto 0.1 X10*3/uL (0.0-0.2); Basophils Percent Auto 1.1 % (0-2); Eosinophils Absolute Auto 0.1 X10*3/uL (0.0-0.4); Eosinophils Percent Auto 1.4 % (0-4); Imm Gran Abs Auto 0.01 X10*3/uL (0.00-0.03); Imm Gran Pct Auto 0.2 % (0.0-0.4); Lymphocytes Absolute Auto 1.5 X10*3/uL (1.2-4.9); Lymphocytes Percent Auto 33.9 % (20-40); Mean Corpuscular HGB Conc 32.4 g/dl (31.0-35.0); Mean Corpuscular Hemoglobin 32.3 pg (27.0-33.0); Mean Corpuscular Volume 99.5 fL (80.0-98.0); Mean Platelet Volume 11.4 fL (9.4-12.3); Monocytes Absolute Auto 0.4 X10*3/uL (0.1-1.2); Monocytes Percent Auto 9.7 % (2-11); Neutrophils Absolute Auto 2.4 x10*3/uL (2.0-8.3); Neutrophils Percent Auto 53.7 % (45-73); Platelet Count 221 X10*3/uL (160-400); Red Blood Count 3.72 X10*6/uL (4.20-5.50); Red Cell Distribution Width 15.1 % (11.0-16.0); White Blood Count 4.4 X10*3/uL (4.8-10.8)
[2022-11-16 10:57] LABS: Alanine Aminotransferase 19 U/L (0-31); Aspartate Amino Transferase 24 U/L (5-31); C Reactive Protein < 0.10 mg/dL (< or = 0.50); Estimated Glomerular Filt Rate > 60
[2022-11-16 11:01] LABS: Erythrocyte Sedimentation Rate 9 MM/HR (0-20)
== END 2022-11-16 08:52 | disposition home or self-care (01) ==
LOC: HO.LAB 08:51
PROVIDERS: PCP Internal Medicine; Visit Provider Internal Medicine Rheumatology
DX: M05.9 Rheumatoid arthritis with rheumatoid factor, unspecified (principal); Z79.899 Other long term (current) drug therapy
CPT/HCPCS: 36415; 82565; 84450; 84460; 85025; 85652; 86140

== ENCOUNTER 2022-11-30 08:17 | Outpatient (AMB) | payer MEDICARE, SELFPAY ==
[2022-11-30 08:20] VITALS: BP 126/72; PULSE 81; TEMP 35.9; O2SAT 98; BMI 24.6
--- NOTE | 2022-11-30 08:20 | A.OFFVIS_ITS ---
Intake Vital Signs 11/30/22 08:20 Height 5 ft 2 in Weight 134 lb 11.239 oz BMI 24.6 BP 126/72 Blood Pressure Location Lt brachial Position Sitting Pulse 81 Pulse Source Pulse Oximeter Temp 96.6 F L Temp Source Skin Pulse Oximetry (%) 98 Intake Visit Reasons: PMR follow up and Humira teaching Intake Note: Pt seen today for PMR follow up and Humira teaching. She states she has used Humira 4 times and has experienced different symptoms each time. 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 Accompanied by: Self / Same As Patient Allergies diphtheria,pertussis (acellular),te [From Boostrix Tdap] Allergy (Severe, Verified 11/30/22 08:28) throat closing influenza virus vaccine tv splt 2012- (4 yr,up) [From Fluvirin] Allergy (Severe, Verified 11/30/22 08:28) throat closing mannitol [From Reclast] Allergy (Severe, Verified 11/30/22 08:28) throat closing water for injection,sterile [From Reclast] Allergy (Severe, Verified 11/30/22 08:28) throat closing zoledronic acid [From Reclast] Allergy (Severe, Verified 11/30/22 08:28) throat closing Sulfa (Sulfonamide Antibiotics) Allergy (Intermediate, Verified 11/30/22 08:28) rash HPI HPI Comments History of Present Illness Details Patient returns for evaluation of her rheumatoid arthritis. She says her joints are doing quite a bit better. We had started her on Humira in addition to methotrexate 15 mg weekly, hydroxychloroquine 200 mg daily and meloxicam 15 mg daily. She also had a course of prednisone for some synovitis and then for some poison tung. Now after 4 doses of the Humira she says the hands are much better. She does not have any pain in the hands. She is pleased with the outcome. She has some questions about administration of the Humira. She had one injection that was accompanied by a large bruise but it sounds like she tried to push the syringe too deeply. [facility] Medical History Long-term use of immunosuppressant medication Osteoarthritis of hips, bilateral Seropositive rheumatoid arthritis Surgical History H/O oral surgery Family History Sister Rheumatoid arthritis Social History Household Members: Significant Other Housing: House Are you a primary career resource specialist to a significant other at home: No Do you presently have visiting nurse or other home services: No 75 years or older and lives alone: No Alcohol intake: current Alcohol intake frequency: holidays/special occasions only Patient Tobacco Use Status: Never used Tobacco service: No 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 Card Details: Negative chest pain, edema and syncope Resp Details: Negative for SOB, cough and wheezing GI Details: Negative indigestion/heartburn, nausea, abdominal pain, bowel changes, diarrhea, constipation and bloody stool. Paulino/Lymph Details: Negative for excessive bruising or bleeding. Physical Exam Vital Signs: Last Vital Signs Temp 96.6 F L 11/30/22 08:20 Pulse 81 11/30/22 08:20 BP 126/72 11/30/22 08:20 Pulse Ox 98 11/30/22 08:20 BMI result Body Mass Index 24.6 APPEARANCE: Patient in no acute distress EYES no redness, pupils equal and reactive to light, eyelids normal Cervical Spine:.? Full range of motion without pain; no tenderness. Thoracic Spine:.? No scoliosis.? No tenderness on palpation. Lumbar Spine:.? Alignment normal.? Full range of motion without pain, no tenderness. Chest Wall:.? No tenderness, swelling, increased warmth or erythema. Hands:? Right:? There is? mild swelling of the 1st through 3rd MCP joints but today none are tender. She has no flexor tendon triggering or tenderness.? ? There slight thickening of the PIP joints 2 through 5 but none have any tenderness. There motion is pain-free.? The DIP joints are not swollen or tender.? Left: ? Mild swelling without tenderness at the 1st MCP joint. There is slight thickening without tenderness at the 5th PIP joint.? Other joints are not swollen or tender. Wrists:.? Left:? Flexion intact without pain to 75 degrees.? She has 80 degrees of extension.? No tenderness or swelling.? Right:? Normal pain-free range of motion without tenderness, swelling, increased warmth or erythema. Elbows:. Normal pain-free range of motion without tenderness, swelling, increased warmth or erythema. Shoulders:.?? Full range of motion without pain. No tenderness, weakness, swelling, increased warmth or erythema. Hips:.? Full range of motion without pain. Hip bursa:.? No tenderness. Knees:.?? Normal pain-free range of motion with mild patellofemoral crepitus.? No effusions, tenderness, swelling, increased warmth or erythema.? There is no effusion or crepitation Ankles:? Normal pain-free range of motion without tenderness, swelling, increased warmth or erythema. Feet:? Normal pain-free range of motion without tenderness or swelling. ? Results Reviewed Results Reviewed: Laboratory Tests 11/16/22 11/16/22 11/16/22 09:18 09:18 09:18 WBC 4.4 L Hgb 12.0 ESR 9 Creatinine 0.79 AST 24 ALT 19 C-Reactive Protein < 0.10 Assessment & Plan Assessment & Plan (1) Long-term use of immunosuppressant medication: Code(s): Z79.899 - Other shelter (current) drug therapy (2) Seropositive rheumatoid arthritis: Comment: Onset probably in 1994. Hydroxychloroquine since 2006. Methotrexate added in August 2012. Last eye exam [place] 07/2021 Code(s): M05.9 - Rheumatoid arthritis with rheumatoid factor, unspecified Plan Rheumatoid arthritis with good control of synovitis with this new regimen. The acute phase reactants also both improved. She questions whether she needs to take the hydroxychloroquine. I told her to continue it for another month and if symptoms remain good she could stop it. We will continue otherwise with the methotrexate and Humira. Lab work would be due again in January and in March. We will schedule a return visit in March. Orders: Orders Alanine Aminotransferase Today M05.9 - Rheumatoid arthritis with rheumatoid factor, unspecified, Z79.899 - Other terminal [facility]man (current) drug therapy Aspartate Amino Transferase Today M05.9 - Rheumatoid arthritis with rheumatoid factor, unspecified, Z79.899 - Other shelter (current) drug therapy Creatinine Today M05.9 - Rheumatoid arthritis with rheumatoid factor, unspecified, Z79.899 - Other terminal carman (current) drug therapy C Reactive Protein Today M05.9 - Rheumatoid arthritis with rheumatoid factor, unspecified Complete Blood Count Auto Diff Today M05.9 - Rheumatoid arthritis with rheum atoid factor, unspecified, Z79.899 - Other terminal carman (current) drug therapy Erythrocyte Sedimentation Rate Today M05.9 - Rheumatoid arthritis with rheumatoid factor, unspecified Alanine Aminotransferase 1 Month M05.9 - Rheumatoid arthritis with rheumatoid factor, unspecified, Z79.899 - Other shelter (current) drug therapy Aspartate Amino Transferase 1 Month M05.9 - Rheumatoid arthritis with rheumatoid factor, unspecified, Z79.899 - Other shelter (current) drug therapy Creatinine 1 Month M05.9 - Rheumatoid arthritis with rheumatoid factor, unspecified, Z79.899 - Other shelter (current) drug therapy C Reactive Protein 1 Month M05.9 - Rheumatoid arthritis with rheumatoid factor, unspecified Complete Blood Count Auto Diff 1 Month M05.9 - Rheumatoid arthritis with rheumatoid factor, unspecified, Z79.899 - Other shelter (current) drug therapy Erythrocyte Sedimentation Rate 1 Month M05.9 - Rheumatoid arthritis with rheumatoid factor, unspecified Coding Level of Care Code Est Pt Level 3 (36546) Diagnoses Long-term use of immunosuppressant medication Z79.899 Seropositive rheumatoid arthritis M05.9
== END 2022-11-30 10:55 | disposition home or self-care (01) ==
PROVIDERS: PCP Internal Medicine; Visit Provider Internal Medicine Rheumatology
DX: M05.79 Rheumatoid arthritis with rheumatoid factor of multiple sites without organ or systems involvement (principal); Z79.899 Other long term (current) drug therapy
CPT/HCPCS: 99214

== ENCOUNTER → 2022-11-30 08:17 | Outpatient (BNVA) | payer MEDICARE, SELFPAY | PROVIDERS: PCP Internal Medicine; Visit Provider Internal Medicine Rheumatology ==

== ENCOUNTER 2023-02-10 16:14 | Outpatient (REF) | payer MEDICARE, SELFPAY ==
[2023-02-10 16:32] LABS: MANUAL DIFF FLAG NO
[2023-02-10 16:42] LABS: Basophils Absolute Auto 0.1 X10*3/uL (0.0-0.2); Basophils Percent Auto 1.1 % (0-2); Eosinophils Absolute Auto 0.1 X10*3/uL (0.0-0.4); Eosinophils Percent Auto 1.5 % (0-4); Hematocrit 36.2 % (37.0-47.0); Hemoglobin 11.5 g/dl (12.0-16.0); Imm Gran Abs Auto 0.01 X10*3/uL (0.00-0.03); Imm Gran Pct Auto 0.2 % (0.0-0.4); Lymphocytes Absolute Auto 1.5 X10*3/uL (1.2-4.9); Lymphocytes Percent Auto 32.1 % (20-40); Mean Corpuscular HGB Conc 31.8 g/dl (31.0-35.0); Mean Corpuscular Hemoglobin 31.4 pg (27.0-33.0); Mean Corpuscular Volume 98.9 fL (80.0-98.0); Mean Platelet Volume 10.4 fL (9.4-12.3); Monocytes Absolute Auto 0.8 X10*3/uL (0.1-1.2); Monocytes Percent Auto 17.2 % (2-11); Neutrophils Absolute Auto 2.3 x10*3/uL (2.0-8.3); Neutrophils Percent Auto 47.9 % (45-73); Platelet Count 218 X10*3/uL (160-400); Red Blood Count 3.66 X10*6/uL (4.20-5.50); Red Cell Distribution Width 14.4 % (11.0-16.0); White Blood Count 4.8 X10*3/uL (4.8-10.8)
[2023-02-10 17:08] LABS: Alanine Aminotransferase 14 U/L (0-31); Aspartate Amino Transferase 21 U/L (5-31); C Reactive Protein < 0.10 mg/dL (< or = 0.50); Estimated Glomerular Filt Rate > 60
[2023-02-10 17:25] LABS: Erythrocyte Sedimentation Rate 16 MM/HR (0-20)
== END 2023-02-10 16:15 | disposition home or self-care (01) ==
LOC: HO.LAB 16:14
PROVIDERS: PCP Internal Medicine; Visit Provider Internal Medicine Rheumatology
DX: M05.9 Rheumatoid arthritis with rheumatoid factor, unspecified (principal); Z79.899 Other long term (current) drug therapy
CPT/HCPCS: 36415; 82565; 84450; 84460; 85025; 85652; 86140

== ENCOUNTER 2023-03-10 09:47 | Outpatient (AMB) | payer MEDICARE, SELFPAY ==
--- NOTE | 2023-03-10 09:50 | A.OFFVIS_ITS ---
Intake Vital Signs 03/10/23 09:58 Height 5 ft 3 in Weight 134 lb 4.184 oz BMI 23.8 BP 118/72 Blood Pressure Location Lt brachial Position Sitting Pulse 75 Pulse Source Pulse Oximeter Temp 97 F Temp Source Skin Pulse Oximetry (%) 97 Oxygen Delivery Method Room Air Intake Visit Reasons: PMR Intake Note: Patient presents today to follow up on PMR. Occupational Health Manager Required: No Accompanied by: Self / Same As Patient Allergies diphtheria,pertussis (acellular),te [From Boostrix Tdap] Allergy (Severe, Verified 03/10/23 09:50) throat closing influenza virus vaccine tv splt 2012-14 (4 yr,up) [From Fluvirin] Allergy (Severe, Verified 03/10/23 09:50) throat closing mannitol [From Reclast] Allergy (Severe, Verified 03/10/23 09:50) throat closing water for injection,sterile [From Reclast] Allergy (Severe, Verified 03/10/23 09:50) throat closing zoledronic acid [From Reclast] Allergy (Severe, Verified 03/10/23 09:50) throat closing Sulfa (Sulfonamide Antibiotics) Allergy (Intermediate, Verified 03/10/23 09:50) rash HPI HPI Comments History of Present Illness Details The patient returns for evaluation of her rheumatoid arthritis. She says she is doing well this fall particularly since starting up on the Humira earlier this year. Currently she has no joint pains. She is taking 40 mg Humira every 2 weeks, methotrexate 15 mg weekly, and folic acid 1 mg daily. We stopped the hydroxychloroquine since she did not seem to need it. She also has had some meloxicam at home but has not been needing that either. There are no apparent side effects with medications that she can determine so far. She did have a another DEXA scan done this week. She was told the readings were about the same and that no additional treatment was recommended. The FRAX analysis suggested an overall 10 year fracture risk of 28% and a hip fracture risk of 9%. She remains on vitamin-D and calcium. She had received a few months of oral alendronate and then one dose of zoledronic acid about 5 years ago. The zoledronic acid infusion was followed by overall arthralgias so she was reluctant to proceed with any further dosing. She has had no fractures. 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 [facility] Medical History (Updated 03/10/23 @ 10:40 by Bridger Verduzco MD) Long-term use of immunosuppressant medication Osteoarthritis of hips, bilateral Seropositive rheumatoid arthritis Surgical History H/O oral surgery Family History Sister Rheumatoid arthritis Social History Household Members: Significant Other Housing: House Are you a primary insurance healthcare consultant to a significant other at home: No Do you presently have visiting nurse or other home services: No 75 years or older and lives alone: No Alcohol intake: current Alcohol intake frequency: holidays/special occasions only Patient Tobacco Use Status: Never used Tobacco service: No 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 GI Details: Negative indigestion/heartburn, nausea, abdominal pain, bowel changes, diarrhea, constipation and bloody stool. Skin/Breast Details: Negative for itching, rash, hives, Raynaud's symptoms, sun sensitivity, and skin cancer Neuro Details: Negative for epilepsy, palsy, stroke, changes in speech, tingling and weakness Paulino/Lymph Details: Negative for excessive bruising or bleeding. Physical Exam Vital Signs: Last Vital Signs Temp 97 F 03/10/23 09:58 Pulse 75 03/10/23 09:58 BP 118/72 03/10/23 09:58 Pulse Ox 97 03/10/23 09:58 Oxygen Delivery Method Room Air 03/10/23 09:58 BMI result Body Mass Index 23.8 APPEARANCE: Patient in no acute distress Cervical Spine:.? Full range of motion without pain; no tenderness. Thoracic Spine:.? No scoliosis.? No tenderness on palpation. Lumbar Spine:.? Alignment normal.? Full range of motion without pain, no tenderness. Chest Wall:.? No tenderness, swelling, increased warmth or erythema. Hands:? Right:? There is? mild swelling of the 1st through 3rd MCP joints but today none are tender. She has no flexor tendon triggering or tenderness.? ? There slight thickening of the PIP joints 2 through 5 but none have any tenderness. Their motion is pain-free.? The DIP joints are not swollen or tender.? Left: ? Mild swelling without tenderness at the 1st MCP joint. There is slight thickening without tenderness at the 5th PIP joint.? Other joints are not swollen or tender. Wrists:.? Left:? Flexion intact without pain to 75 degrees.? She has 80 degrees of extension.? No tenderness or swelling.? Right:? Normal pain-free range of motion without tenderness, swelling, increased warmth or erythema. Elbows:. Normal pain-free range of motion without tenderness, swelling, increased warmth or erythema. Shoulders:.?? Full range of motion without pain. No tenderness, weakness, swelling, increased warmth or erythema. Hips:.? Full range of motion without pain. Hip bursa:.? No tenderness. Knees:.?? Normal pain-free range of motion with mild patellofemoral crepitus.? No effusions, tenderness, swelling, increased warmth or erythema.? There is no effusion or crepitation Ankles:? Normal pain-free range of motion without tenderness, swelling, increased warmth or erythema. Feet:? Normal pain-free range of motion without tenderness or swelling. EYES no redness, pupils equal and reactive to light, eyelids normal EARS: External ear normal, canal clear and tympanic membrane normal. NOSE/SINUS: Airflow through both nares, no nasal discharge, no bleeding THROAT: Oral mucosa moist, no ulcerations NECK: No thyromegaly or masses, no adenopathy, trachea midline. HEART: Regulrar rhythm, S1-S2 heard, no murmurs, rubs or gallops. LUNG: Clear to percussion and auscultation ABD: Normal bowel sounds, no organomegaly, masses or tenderness. EXTREMITIES: No edema, no calf tenderness, normal peripheral pulses. NEURO: Oriented and alert x3. No focal weakness. Reflexes symmetric. Gait normal. SKIN: No inflammatory or neoplastic lesions. Normal color and turgor JOINT EXAM:.?? Cervical Spine:.? Full range of motion without pain; no tenderness. Thoracic Spine:.? No scoliosis.? No tenderness on palpation. Lumbar Spine:.? Alignment normal.? Full range of motion without pain, no tenderness. Chest Wall:.? No tenderness, swelling, increased warmth or erythema. Hands:.? Normal pain-free range of motion without tenderness, swelling, increased warmth or erythema. Able to make a full fist and has a good mineralogy teacher strength. Wrists:.? Normal pain-free range of motion without tenderness, swelling, increased warmth or erythema. Elbows:. Normal pain-free range of motion without tenderness, swelling, increased warmth or erythema. Shoulders:.?? Full range of motion without pain. No tenderness, weakness, swelling, increased warmth or erythema. Hips:.? Full range of motion without pain. Hip bursa:.? No tenderness. Knees:.?? Normal pain-free range of motion without tenderness, swelling, increased warmth or erythema.? There is no effusion or crepitation Ankles:.? Normal pain-free range of motion without tenderness, swelling, increased warmth or erythema. Feet:.? Left: Evidence of previous surgery fusing the toes. No areas of tenderness. No MTP swelling or tenderness. Right: Normal pain-free range of motion without tenderness, swelling, increased warmth or erythema. Tender points:.? No tenderness to digital palpation at the occiput, trapezius, second rib, lateral epicondyle, knees, greater trochanter and gluteal area bilaterally. ? Results Reviewed Results Reviewed: Laboratory Tests 02/10/23 16:30 WBC 4.8 Hgb 11.5 L ESR 16 Creatinine 0.72 AST 21 ALT 14 C-Reactive Protein < 0.10 [facility] Imaging Result Report Patient: Janny Muse Date of Service: 03/08/23 ? ? Patient Gender: Female Ordering Provider: Huma Yancey : 1950 ? ? ? Final DXA BONE DENSITY STUDY 1+ SITS AXIAL SKEL Exam Date: 03/08/2023 10:20 AM Ordering Diagnosis: Physical exam ? BONE DENSITY SCAN (DEXA): ? FINDINGS: ? Lumbar Spine L1-L3, L4 excluded T-score is -2.2. (SD relative to 20-29 y/o adult) Z-score is 0.0. (SD relative to age matched peers) This is considered osteopenia by WHO criteria. ? Left Hip T-score is -1.1. Z-score is 0.8. This is considered osteopenia by WHO criteria. ? Comparison exam(s): 11/26/2020. 11.2% loss of lumbar spine bone mineral density which is statistically significant at the 95% confidence level. No statistically significant change in left hip bone mineral density. ? Lateral survey view of the thoracolumbar spine shows no significant compression deformities of the visualized vertebral elements. ? IMPRESSION IMPRESSION: ? Osteopenia by WHO criteria. This patient has a 28% risk of major osteoporotic fracture and a 9.3% risk of hip fracture over the next 10 years. (World Health Organization Fracture Risk Assessment) ? [facility] Department of Internal Medicine recommends using National Osteoporosis Foundation (NOF) guidelines in treatment decisions related to osteoporosis. NOF guidelines suggest considering treatment for postmenopausal women and men aged 50 or older presenting with the following: ? History of hip or vertebral fracture. T-score = -2.5 (DXA) at the femoral neck, total hip, or spine, after appropriate evaluation to exclude secondary causes. Low bone mass (T-score between -1.0 and -2.5 at the femoral neck or spine) AND a 10-year probability of a hip fracture = 3% OR a 10-year probability of a major osteoporosis-related fracture = 20% based on the [place]-adapted WHO algorithm ? Please note that all treatment decisions require clinical judgment and consideration of individual patient factors, including patient preferences, co-morbidities, previous drug use, risk factors not captured in the FRAX model (e.g., frailty, falls, vitamin D deficiency, increased bone turnover, interval significant decline in bone density) and possible under- or over-estimation of fracture risk by FRAX. ? Optional alternative screening schedule based on nate Delarosa., [employer] [facility] [employer] April 30, 2011 for patients with osteopenia (based on hip BMD T-score) is as follows: * advanced osteopenia (T scores -2.00 to -2.49), BMD testing every year * moderate osteopenia (T scores -1.50 to -1.99), BMD testing every 5 years mild osteopenia or normal BMD (T scores -1.50 and higher), BMD testing every 15 years ? Reading Radiologist: ? Assessment & Plan Assessment & Plan (1) Osteopenia after menopause: Comment: 11/26 DEXA : T score at hip -1.9. T score at LS spine -1.1, FRAX: 43% estimated fracture risk, 4.3% for hip fracture risk Intolerant of alendronate: Heartburn and nausea. Infusion reaction with zoledronic acid: July 2017 T scores: 11/2020: LS -0.8; hip -1.6 02/2023 LS -2.2; hip - 1.1 Code(s): M85.80 - Other specified disorders of bone density and structure, unspecified site; Z78.0 - Asymptomatic menopausal state (2) Long-term use of immunosuppressant medication: Code(s): Z79.899 - Other penitentiary (current) drug therapy (3) Seropositive rheumatoid arthritis: Comment: Onset probably in 1994. Hydroxychloroquine since 2006. Methotrexate added in August 2012. Last eye exam OK 07/2021. Humira added 09/2022 hydroxychlororquine stopped 01/2023 Code(s): M05.9 - Rheumatoid arthritis with rheumatoid factor, unspecified Plan Rheumatoid arthritis with good response with the addition of Humira to her methotrexate. She is not having any side effects with this regimen so I think it can be continued. She does have osteopenia and I had treated her about 5 years ago with some oral alendronate that caused nausea and then she had one dose of the zoledronic acid. That was followed by an infusion reaction and widespread arthralgias for a week or 2 so she is reluctant to proceed with further treatment with alendronate, zoledronic acid or other measures for now. Overall the bone density although it still in the osteopenic range remains about the same. I would suspect that the FRAX analysis over estimates her fracture risk since she has had some treatment with the bisphosphonate. She also is worried about getting the flu vaccine because of potential for side effects. I told her that if she did decide to get any vaccination she should hold her subsequent dose of methotrexate. We will have lab work done before next visit in 3-4 months. Coding Level of Care Code Est Pt Level 3 (25792) Diagnoses Osteopenia after menopause M85.80; Z78.0 Long-term use of immunosuppressant medication Z79.899 Seropositive rheumatoid arthritis M05.9
[2023-03-10 09:58] VITALS: BP 118/72; PULSE 75; TEMP 36.1; O2SAT 97; BMI 23.8
== END 2023-03-10 10:32 | disposition home or self-care (01) ==
PROVIDERS: PCP Internal Medicine; Visit Provider Internal Medicine Rheumatology
DX: M05.79 Rheumatoid arthritis with rheumatoid factor of multiple sites without organ or systems involvement (principal); M85.80 Other specified disorders of bone density and structure, unspecified site; Z78.0 Asymptomatic menopausal state; Z79.899 Other long term (current) drug therapy
CPT/HCPCS: 99213

== ENCOUNTER → 2023-03-10 09:47 | Outpatient (BNVA) | payer MEDICARE, SELFPAY | PROVIDERS: PCP Internal Medicine; Visit Provider Internal Medicine Rheumatology | DX: M05.9 Rheumatoid arthritis with rheumatoid factor, unspecified (principal); M85.80 Other specified disorders of bone density and structure, unspecified site; Z78.0 Asymptomatic menopausal state; Z79.899 Other long term (current) drug therapy | CPT/HCPCS: 99212 ==

== ENCOUNTER 2023-08-20 12:25 | Outpatient (REF) | payer MEDICARE, SELFPAY ==
[2023-08-20 13:46] LABS: MANUAL DIFF FLAG NO
[2023-08-20 14:03] LABS: Basophils Percent Auto 0.8 % (0-2); Eosinophils Absolute Auto 0.1 X10*3/uL (0.0-0.4); Eosinophils Percent Auto 1.3 % (0-4); Hematocrit 36.7 % (37.0-47.0); Hemoglobin 12.2 g/dl (12.0-16.0); Imm Gran Abs Auto 0.01 X10*3/uL (0.00-0.03); Imm Gran Pct Auto 0.3 % (0.0-0.4); Lymphocytes Absolute Auto 1.4 X10*3/uL (1.2-4.9); Lymphocytes Percent Auto 36.9 % (20-40); Mean Corpuscular HGB Conc 33.2 g/dl (31.0-35.0); Mean Corpuscular Hemoglobin 32.7 pg (27.0-33.0); Mean Corpuscular Volume 98.4 fL (80.0-98.0); Mean Platelet Volume 10.5 fL (9.4-12.3); Monocytes Absolute Auto 0.6 X10*3/uL (0.1-1.2); Monocytes Percent Auto 14.7 % (2-11); Neutrophils Absolute Auto 1.7 x10*3/uL (2.0-8.3); Platelet Count 230 X10*3/uL (160-400); Red Blood Count 3.73 X10*6/uL (4.20-5.50); Red Cell Distribution Width 14.9 % (11.0-16.0); White Blood Count 3.7 X10*3/uL (4.8-10.8)
[2023-08-20 14:56] LABS: Alanine Aminotransferase 33 U/L (0-31); Albumin Level 4.3 g/dL (3.5-5.0); Alkaline Phosphatase 63 U/L (39-117); Anion Gap 13 (12-20); Aspartate Amino Transferase 35 U/L (5-31); Bilirubin Total 0.7 mg/dL (0.0-1.0); Blood Urea Nitrogen 16 mg/dL (9-16); C Reactive Protein < 0.04 mg/dL (< or = 0.50); Carbon Dioxide 28 mmol/L (22-29); Chloride 105 mmol/L (96-108); Erythrocyte Sedimentation Rate 18 MM/HR (0-20); Estimated Glomerular Filt Rate > 60; Glucose Random 79 mg/dL (60-115); Iron 93 mcg/dL (30-160); Percent Iron Saturation 34 % (15-50); Potassium 3.8 mmol/L (3.3-5.1); Sodium 142 mmol/L (135-145); Total Iron Binding Capacity 273 mcg/dL (228-428); Total Protein 7.3 g/dL (6.5-8.0); Unsaturated Iron Binding 180 ug/dL
[2023-08-20 15:12] LABS: Ferritin 144 ng/mL (10-250)
[2023-08-22 10:03] LABS: Transferrin 236 mg/dL (188-341)
== END 2023-08-20 12:26 | disposition home or self-care (01) ==
LOC: HO.LAB 12:25
PROVIDERS: PCP Internal Medicine; Visit Provider Nurse Practitioner Family
DX: M05.9 Rheumatoid arthritis with rheumatoid factor, unspecified (principal); D64.9 Anemia, unspecified; Z79.899 Other long term (current) drug therapy
CPT/HCPCS: 36415; 80053; 82728; 83540; 84466; 85025; 85652; 86140; 99212

== ENCOUNTER 2023-08-20 12:25 | Outpatient (AMB) | payer MEDICARE, SELFPAY ==
--- NOTE | 2023-08-20 12:32 | A.OFFVIS_ITS ---
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 Verduzco, presents today for follow up. State Assessed Properties Director Required: No Accompanied by: Self / Same As Patient Allergies diphtheria,pertussis (acellular),te [From Boostrix Tdap] Allergy (Severe, Verified 08/20/23 12:45) throat closing influenza virus vaccine tv splt 2012-14 (4 yr,up) [From Fluvirin] Allergy (Severe, Verified 08/20/23 12:45) throat closing mannitol [From Reclast] Allergy (Severe, Verified 08/20/23 12:45) throat closing water for injection,sterile [From Reclast] Allergy (Severe, Verified 08/20/23 12:45) throat closing zoledronic acid [From Reclast] Allergy (Severe, Verified 08/20/23 12:45) throat closing Sulfa (Sulfonamide Antibiotics) Allergy (Intermediate, Verified 08/20/23 12:45) rash HPI Comments Details: Ms. Muse 72 yoF for evaluation of her rheumatoid arthritis. She denies joint pains and swelling currently but has had two flare ups since last, last one in July - resolved with Prednisone. She is taking 40 mg Humira every 2 weeks, methotrexate 15 mg weekly, and folic acid 1 mg daily. We stopped the hydroxychloroquine since she did not seem to need it. She also has had some meloxicam at home but has not been needing that either. She denies side effects with medications that she can determine so far. 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 03/10/2023: Dr. Verduzco: The patient returns for evaluation of her rheumatoid arthritis. She says she is doing well this fall particularly since starting up on the Humira earlier this year. Currently she has no joint pains. She is taking 40 mg Humira every 2 weeks, methotrexate 15 mg weekly, and folic acid 1 mg daily. We stopped the hydroxychloroquine since she did not seem to need it. She also has had some meloxicam at home but has not been needing that either. There are no apparent side effects with medications that she can determine so far. She did have a another DEXA scan done this week. She was told the readings were about the same and that no additional treatment was recommended. The FRAX analysis suggested an overall 10 year fracture risk of 28% and a hip fracture risk of 9%. She remains on vitamin-D and calcium. She had received a few months of oral alendronate and then one dose of zoledronic acid about 5 years ago. The zoledronic acid infusion was followed by overall arthralgias so she was reluctant to proceed with any further dosing. She has had no fractures. 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 [facility] Medical History (Updated 09/19/23 @ 14:00 by CHRIS Wolfe) Long-term use of immunosuppressant medication Osteoarthritis of hips, bilateral Seropositive rheumatoid arthritis Surgical History H/O oral surgery Family History Sister Rheumatoid arthritis Social History Household Members: Significant Other Housing: House Are you a primary health care / medical job titles to a significant other at home: No Do you presently have visiting nurse or other home services: No 75 years or older and lives alone: No Alcohol intake: current Alcohol intake frequency: holidays/special occasions only Patient Tobacco Use Status: Never used Tobacco service: No Current occupation: [employer] Review of Systems Const All systems reviewed & are unremarkable except as noted in HPI and below Physical Exam Vital Signs: Last Vital Signs Pulse 88 08/20/23 12:44 BP 140/100 H 08/20/23 12:44 Pulse Ox 97 08/20/23 12:44 Oxygen Delivery Method Room Air 08/20/23 12:44 BMI result Body Mass Index 24.6 APPEARANCE: Patient in no acute distress HEART:? Regular rhythm, S1-S2 heard, no murmurs, rubs or gallops. LUNG:? Clear to percussion and auscultation Chest Wall:.? No tenderness, swelling, increased warmth or erythema. Hands:? Right:? There is?slight swelling of the 1st through 3rd MCP joints but today none are tender. She has no flexor tendon triggering or tenderness.? There slight thickening of the PIP joints 2 through 5 but none have any tenderness. Their motion is pain-free.? The DIP joints are not swollen or tender.? Left: no more mild swelling, no tenderness at the 1st MCP joint. There is slight thickening without tenderness at the 5th PIP joint.? Other joints are not swollen or tender. Wrists:.? Left:? Flexion intact without pain to 75 degrees.? She has 80 degrees of extension.? No tenderness or swelling.? Right:? Normal pain-free range of motion without tenderness, swelling, increased warmth or erythema. Elbows:. Normal pain-free range of motion without tenderness, swelling, increased warmth or erythema. Shoulders:.?? Full range of motion without pain. No tenderness, weakness, swelling, increased warmth or erythema. Hips:.? Full range of motion without pain. Hip bursa:.? No tenderness. Knees:.?? Normal pain-free range of motion with mild patellofemoral crepitus.? No effusions, tenderness, swelling, increased warmth or erythema.? There is no effusion or crepitation Ankles:? Normal pain-free range of motion without tenderness, swelling, increased warmth or erythema. Feet:? Normal pain-free range of motion without tenderness or swelling. Results Reviewed Results Reviewed: Laboratory Tests 08/20/23 13:44 WBC 3.7 L RBC 3.73 L Hgb 12.2 Hct 36.7 L MCV 98.4 H ESR 18 AST 35 H ALT 33 H C-Reactive Protein < 0.04 Assessment & Plan Assessment & Plan (1) Seropositive rheumatoid arthritis: Comment: Onset probably in 1994. Hydroxychloroquine since 2006. Methotrexate added in August 2012. Last eye exam [place] 07/2021. Humira added 09/2022 hydroxychlororquine stopped 01/2023 Code(s): M05.9 - Rheumatoid arthritis with rheumatoid factor, unspecified Category: Medical (2) Long-term use of immunosuppressant medication: Code(s): Z79.899 - Other longterm (current) drug therapy Category: Medical (3) Anemia: Code(s): D64.9 - Anemia, unspecified Category: Medical Qualifiers: Anemia type: iron deficiency Iron deficiency anemia type: inadequate dietary iron intake Qualified Code(s): D50.8 - Other iron deficiency anemias (4) Osteopenia after menopause: Comment: 11/26 DEXA : T score at hip -1.9. T score at LS spine -1.1, FRAX: 43% estimated fracture risk, 4.3% for hip fracture risk Intolerant of alendronate: Heartburn and nausea. Infusion reaction with zoledronic acid: July 2017 T scores: 11/2020: LS -0.8; hip -1.6 02/2023 LS -2.2; hip - 1.1 Code(s): M85.80 - Other specified disorders of bone density and structure, unspecified site; Z78.0 - Asymptomatic menopausal state Category: Medical Plan #Rheumatoid arthritis continues with good response with the addition of Humira to her methotrexate. She continues to benefit without side effects with this regimen so I think it can be continued. Her flares appear to be adequately managed with prednisone. We will continue Humira 40 mg Q2W, MTX 20mg QW and Folic Acid 1 mg QD. She also has Meloxicam 15mg QD PRN. #Osteopenia: She does have osteopenia and which was treated about 5 years ago (2017) with some oral alendronate that caused nausea and then she had one dose of the zoledronic acid. That was followed by an infusion reaction and widespread arthralgias for a week or 2 so she is reluctant to proceed with further treatment with alendronate, zoledronic acid or other measures for now. Overall the bone density although it still in the osteopenic range remains about the same. It is suspect that the FRAX analysis over estimates her fracture risk since she has had some treatment with the bisphosphonate. She continues to take D3 25mcg QD. #Anemia/Mild Macrocytosis: Will obtain Iron studies. If WNL, consider to decrease MTX. #Agricultural Technician Use: Her CBC and CMP are within acceptable ranges to continue the medications. We will have lab work done one week before next visit in 4 months. The patient knows to hold the medications in the event of fevers, infection, surgery or non-healing wound. f/u 4 months I spent 35 minutes reviewing history. evaluating patient and documenting. Orders: Orders Erythrocyte Sedimentation Rate 08/20/23 Z79.899 - Other terminal clerk (current) drug therapy, M05.9 - Rheumatoid arthritis with rheumatoid factor, unspecified Complete Blood Count Auto Diff 08/20/23 Z79.899 - Other longterm (current) drug therapy, M05.9 - Rheumatoid arthritis with rheumatoid factor, unspecified Comprehensive Met. Panel 08/20/23 Z79.899 - Other longterm (current) drug therapy, M05.9 - Rheumatoid arthritis with rheumatoid factor, unspecified C Reactive Protein 08/20/23 Z79.899 - Other terminal clerk (current) drug therapy, M05.9 - Rheumatoid arthritis with rheumatoid factor, unspecified Ferritin 08/20/23 D64.9 - Anemia, unspecified IRON PROFILE 08/20/23 D64.9 - Anemia, unspecified Transferrin 08/20/23 D64.9 - Anemia, unspecified Comprehensive Met. Panel 6 Months D64.9 - Anemia, unspecified, M05.9 - Rheumatoid arthritis with rheumatoid factor, unspecified C Reactive Protein 6 Months D64.9 - Anemia, unspecified, M05.9 - Rheumatoid arthritis with rheumatoid factor, unspecified Erythrocyte Sedimentation Rate 6 Months D64.9 - Anemia, unspecified, M05.9 - Rheumatoid arthritis with rheumatoid factor, unspecified Complete Blood Count Auto Diff 6 Months D64.9 - Anemia, unspecified, M05.9 - Rheumatoid arthritis with rheumatoid factor, unspecified Coding Level of Care Code Est Pt Level 4 (24029) Complex EM visit Add On [id number] Diagnoses Seropositive rheumatoid arthritis M05.9 Long-term use of immunosuppressant medication Z79.89 Iron deficiency anemia secondary to inadequate dietary iron intake D50.8 Anemia type: iron deficiency Iron deficiency anemia type: inadequate dietary iron intake Osteopenia after menopause M85.80; Z78.0
[2023-08-20 12:44] VITALS: BP 140/100; PULSE 88; O2SAT 97; BMI 24.6
== END 2023-08-20 13:08 | disposition home or self-care (01) ==
PROVIDERS: PCP Internal Medicine; Visit Provider Nurse Practitioner Family
DX: M05.79 Rheumatoid arthritis with rheumatoid factor of multiple sites without organ or systems involvement (principal); Z79.899 Other long term (current) drug therapy; D50.8 Other iron deficiency anemias; M85.80 Other specified disorders of bone density and structure, unspecified site; Z78.0 Asymptomatic menopausal state
CPT/HCPCS: 99214; G2211

== ENCOUNTER 2024-01-13 12:20 | Outpatient (REF) | payer MEDICARE, SELFPAY ==
[2024-01-13 16:26] LABS: MANUAL DIFF FLAG NO
[2024-01-13 17:12] LABS: Hematocrit 33.9 % (37.0-47.0); Hemoglobin 11.4 g/dl (12.0-16.0); Imm Gran Abs Auto 0.01 X10*3/uL (0.00-0.03); Imm Gran Pct Auto 0.2 % (0.0-0.4); Lymphocytes Absolute Auto 1.7 X10*3/uL (1.2-4.9); Lymphocytes Percent Auto 41.4 % (20-40); Mean Corpuscular HGB Conc 33.6 g/dl (31.0-35.0); Mean Corpuscular Hemoglobin 33.7 pg (27.0-33.0); Mean Corpuscular Volume 100.3 fL (80.0-98.0); Mean Platelet Volume 10.9 fL (9.4-12.3); Monocytes Absolute Auto 0.6 X10*3/uL (0.1-1.2); Monocytes Percent Auto 13.6 % (2-11); Neutrophils Absolute Auto 1.8 x10*3/uL (2.0-8.3); Neutrophils Percent Auto 42.8 % (45-73); Platelet Count 199 X10*3/uL (160-400); Red Blood Count 3.38 X10*6/uL (4.20-5.50); Red Cell Distribution Width 15.1 % (11.0-16.0); White Blood Count 4.2 X10*3/uL (4.8-10.8)
[2024-01-13 17:54] LABS: Erythrocyte Sedimentation Rate 13 MM/HR (0-20)
[2024-01-13 17:58] LABS: Alanine Aminotransferase 19 U/L (0-31); Albumin Level 4.3 g/dL (3.5-5.0); Alkaline Phosphatase 68 U/L (39-117); Anion Gap 9 (12-20); Aspartate Amino Transferase 24 U/L (5-31); Bilirubin Total 0.5 mg/dL (0.0-1.0); Blood Urea Nitrogen 14 mg/dL (9-16); C Reactive Protein < 0.04 mg/dL (< or = 0.50); Calcium 9.3 mg/dL (8.4-10.2); Carbon Dioxide 31 mmol/L (22-29); Chloride 106 mmol/L (96-108); Estimated Glomerular Filt Rate > 60; Glucose Random 75 mg/dL (60-115); Potassium 3.8 mmol/L (3.3-5.1); Sodium 142 mmol/L (135-145)
[2024-01-14 08:06] LABS: HBS Num1 0.36 mIU/mL (0-7.99); HBc Num1 0.14 S/CO (0.00-0.79); HBsAGNum1 0.43 S/CO (0.00-0.99); Hepatitis A Antibody IgM 0.25 Index (0-0.79); Hepatitis B Core Antibody Nonreactive (Nonreactive); Hepatitis B Surface Antigen Negative (Negative); ~HepC Num1 0.07 S/CO (0.00-0.79); ~Hepatitis A Antibody IgM Nonreactive (Nonreactive); ~Hepatitis B Surface Antibody NONREACTIVE (Nonreactive); ~Hepatitis C Antibody Nonreactive (Nonreactive)
== END 2024-01-13 12:21 | disposition home or self-care (01) ==
LOC: HO.LAB 12:20
PROVIDERS: PCP Internal Medicine; Visit Provider Student in an Organized Health Care Education/Training Program
DX: M05.9 Rheumatoid arthritis with rheumatoid factor, unspecified (principal); Z79.899 Other long term (current) drug therapy; R74.01 Elevation of levels of liver transaminase levels; M85.80 Other specified disorders of bone density and structure, unspecified site; Z79.631 Long term (current) use of antimetabolite agent; Z79.620 Long term (current) use of immunosuppressive biologic
CPT/HCPCS: 36415; 80053; 85025; 85652; 86140; 86704; 86706; 86709; 86803; 87340; 99212

== ENCOUNTER 2024-01-13 12:20 | Outpatient (AMB) | payer MEDICARE, SELFPAY ==
--- NOTE | 2024-01-13 12:30 | MHC.OFFVIS ---
Vital Signs 01/13/24 12:31 Height 5 ft 3 in Weight 137 lb 5.568 oz BMI 24.3 BP 124/72 Blood Pressure Location Lt brachial Position Sitting Pulse 49 L Pulse Source Pulse Oximeter Pulse Oximetry (%) 100 Oxygen Delivery Method Room Air Intake Visit Reasons: RA/Anemia/ LM PENDING FOR CREDENTIALING Intake Note: Patient presents today for follow up on RA/ anemia and lab review, she was last seen in the office on 08/20/2023 with Luda Romero. Allergies diphtheria,pertussis (acellular),te [From Boostrix Tdap] Allergy (Severe, Verified 01/13/24 12:32) throat closing influenza virus vaccine tv splt 2012-14 (4 yr,up) [From Fluvirin] Allergy (Severe, Verified 01/13/24 12:32) throat closing mannitol [From Reclast] Allergy (Severe, Verified 01/13/24 12:32) throat closing water for injection,sterile [From Reclast] Allergy (Severe, Verified 01/13/24 12:32) throat closing zoledronic acid [From Reclast] Allergy (Severe, Verified 01/13/24 12:32) throat closing Sulfa (Sulfonamide Antibiotics) Allergy (Intermediate, Verified 01/13/24 12:32) rash Medication List - Last Reconciled 01/13/24 by Charlene Jeronimo MD cholecalciferol (vitamin D3) 25 mcg PO DAILY folic acid 1 mg PO DAILY Humira(CF) Pen (adalimumab) 40 mg (0.4 mL) subcut Q2W NS mecobalamin (vitamin B12) 1,000 mcg PO DAILY meloxicam 15 mg PO DAILY PRN methotrexate sodium 20 mg (8 x 2.5 mg) PO QWEEK sennosides-docusate sodium 8.6-50 mg (Senokot-S) 1 tab-cap PO BEDTIME PRN HPI Comments Details: Patient is a 73-year-old female with seropositive nonerosive rheumatoid arthritis who presents for follow-up Interval History: Last seen 08/20/2023 with Luda Romero. At that time her rheumatoid arthritis was stable and no changes were made to her medication. DEXA scan osteopenia and an elevated FRAX score however atrial appendage to go on medication due to history of side effects. Patient states that since then she has been doing well. States that since starting the Humira and increasing the methotrexate about a year and a half ago it has been a game changer. No more inflammation no more joint swelling. No issues taking the methotrexate. No worsening hair loss, oral ulcers or fatigue the day after methotrexate use. Rheumatologic History: RA: Diagnosed in her 20s Increased Mtx and Added Humira Osteoporosis: 11/26 DEXA : T score at hip -1.9. T score at LS spine -1.1, FRAX: 43% estimated fracture risk, 4.3% for hip fracture risk Intolerant of alendronate: Heartburn and nausea. Infusion reaction with zoledronic acid: July 2017 T scores: 11/2020: LS -0.8; hip -1.6 02/2023 LS -2.2; hip - 1.1 Current Rheumatology Medications: Methotrexate 20mg weekly Folic Acid 1mg daily Humira 40mg SC every 2 weeks [facility] Medical History (Updated 01/13/24 @ 13:16 by Charlene Jeronimo MD) Long-term use of immunosuppressant medication Osteoarthritis of hips, bilateral Seropositive rheumatoid arthritis Surgical History H/O oral surgery Family History Sister Rheumatoid arthritis Social History Household Members: Significant Other Housing: House Are you a primary career services manager to a significant other at home: No Do you presently have visiting nurse or other home services: No 75 years or older and lives alone: No Alcohol intake: current Alcohol intake frequency: holidays/special occasions only Patient Tobacco Use Status: Never used Tobacco service: No Current occupation: [employer] Review of Systems Const Details: Review of Systems Constitutional: Denies fever, chills, weight loss ENT: Denies vision changes, eye pain or eye redness, dental caries, dry mouth GI: Denies nausea, vomiting, diarrhea, abdominal pain, change in BM Pulm: Denies SOB, PITT, hemoptysis, wheezing Cards: Denies chest pain, palpitations Skin: Denies Raynaud's, rash, nail changes, photosensitivity, CARDIOLOGY SPECIALIST: Denies headaches, weakness, paresthesias, recurrent falls MSK: Denies joint swelling, muscle weakness, bone pain All other systems reviewed and are unremarkable except noted above Physical Exam Vital Signs: Last Vital Signs BP 124/72 01/13/24 12:31 BMI result Body Mass Index 24.3 Const Other: Physical Examination Patient well appearing and in no apparent painful distress Able to rise from chair without support. ?Gait normal. Constitutional: ?Mucous membranes pink and moist patient alert and cooperative HEENT: ?Conjunctiva and sclera clear. ?Pupils equal round and reactive to light. ?No lymphadenopathy. ?Normal dentition. Resp: ?Normal respiratory effort and able to speak in complete sentences. ?Clear to auscultation bilaterally. ?No crackles, rales, rhonchi, wheezes heard. Cards: ?Regular rate and rhythm. ?S1 and S2 heard no murmurs. ?Radial pulses intact bilaterally MSK: ?No deformity, swelling, abnormalities noted to bilateral hands. ?No evidence of synovitis. ?Able to move all joints with full range of motion, without limitation. Results Reviewed Results Reviewed: Results and imaging reviewed Hand XRs 09/14/22 FINDINGS: RIGHT HAND: There is mild 1st metacarpophalangeal joint subluxation. Mild reduction of PIP and DIP joints with periarticular spurring PIP joint 1st digit and DIP joint 2nd and the 5th digits are noted. There is a mild extra-articular osteopenia No acute fracture or soft tissue swelling seen. There is an old ulnar styloid process fracture noted. LEFT HAND: There is mild loss of PIP and DIP joint spaces all digits without spurring or bony erosive changes. There is mild juxta-articular osteopenia. No acute fracture or dislocation seen. There is mild soft tissue swelling PIP and DIP joints. Laboratory Tests 11/16/22 02/10/23 08/20/23 09:18 16:30 13:44 WBC 4.4 L 4.8 3.7 L RBC 3.72 L 3.66 L 3.73 L Hgb 12.0 11.5 L 12.2 Hct 37.0 36.2 L 36.7 L Plt Count 221 218 230 ESR 9 16 18 Sodium 142 Potassium 3.8 Chloride 105 Carbon Dioxide 28 Anion Gap 13 BUN 16 Creatinine 0.73 Calcium 10.0 AST 24 21 35 H ALT 19 14 33 H C-Reactive Protein < 0.10 < 0.10 < 0.04 Assessment & Plan Assessment & Plan (1) Seropositive rheumatoid arthritis: Comment: Onset probably in 1994. Hydroxychloroquine since 2006. Methotrexate added in August 2012. Last eye exam [place] 07/2021. Humira added 09/2022 and MTx increased at that time also. hydroxychlororquine stopped 01/2023 Code(s): M05.9 - Rheumatoid arthritis with rheumatoid factor, unspecified Category: Medical Plan: #Seropositive Non erosive RA Patient with seropositive nonerosive RA currently in remission. CDAI 0 (2) Transaminitis: Code(s): R74.01 - Elevation of levels of liver transaminase levels Plan: #Transaminitis Patient with mildly elevated transaminases in August. This could be on a background of her increase in methotrexate. We will check her levels today if worsening we will plan to decrease methotrexate and or switch to another medication. (3) Osteopenia after menopause: Comment: 11/26 DEXA : T score at hip -1.9. T score at LS spine -1.1, FRAX: 43% estimated fracture risk, 4.3% for hip fracture risk Intolerant of alendronate: Heartburn and nausea. Infusion reaction with zoledronic acid: July 2017 T scores: 11/2020: LS -0.8; hip -1.6 02/2023 LS -2.2; hip - 1.1 Code(s): M85.80 - Other specified disorders of bone density and structure, unspecified site; Z78.0 - Asymptomatic menopausal state Category: Medical Plan: #Osteopenia Patient with osteopenia particularly in the lumbar spine. Discussed calcium and vitamin-D supplementation which she is already doing. Also discussed weight-bearing exercises which she is already doing as well. (4) Methotrexate, senior care, current use: Code(s): Z79.631 - remote computer terminal operator (current) use of antimetabolite agent Plan: #Long-term Current Use of Methotrexate Discussed with patient the benefits and risks of methotrexate for managing their rheumatic condition Benefits include reduced pain, reduced mortality, maintenance of remission and reduction of flares Risks include oral ulcers, photosensitivity, hepatotoxicity, hematologic toxicity, pneumonitis, flu-like symptoms (especially day after administration), nodulosis, lymphomas ? Limit alcohol and avoid Bactrim ? Monitoring: ?CBC, BMP, LFTs, hepatitis serologies as needed (5) Adalimumab long-term use: Code(s): Z79.620 - remote computer terminal operator (current) use of immunosuppressive biologic Plan: #Long-term Use of TNF Inhibitors: Martina Discussed with the patient the benefits and risks of TNF inhibitors for the management of the rheumatic condition Benefits include reduce pain, maintenance of remission and reduction of flares as well as ?progression of the disease Risks include injection sites/infusion reactions, serious infections (such as bacterial infections, opportunistic infections), malignancy, delaminating syndromes, autoimmune phenomena, CHF exacerbations, palmar plantar psoriasis and cytopenias Recommended rotating injection sites, and holding medication during and for up to 1 week after resolution of a febrile illness or open skin wound Plan I spent 40 minutes reviewing the record and labs, seeing the patient, discussing the treatment plan and documenting in the medical record Orders: Orders C Reactive Protein Today M05.9 - Rheumatoid arthritis with rheumatoid factor, unspecified, Z79.899 - Other termite technician (current) drug therapy Hepatitis A,B,C Profile Today M05.9 - Rheumatoid arthritis with rheumatoid factor, unspecified, Z79.899 - Other termite technician (current) drug therapy Erythrocyte Sedimentation Rate Today M05.9 - Rheumatoid arthritis with rheumatoid factor, unspecified, Z79.899 - Other senior care (current) drug therapy Complete Blood Count Auto Diff Today M05.9 - Rheumatoid arthritis with rheumatoid factor, unspecified, Z79.899 - Other termite technician (current) drug therapy Comprehensive Met. Panel Today M05.9 - Rheumatoid arthritis with rheumatoid factor, unspecified, Z79.899 - Other senior care (current) drug therapy Medications: Changed From folic acid 1 mg PO DAILY 90 tabs 3RF M05.9 - Rheumatoid arthritis with rheumatoid factor, unspecified To folic acid Daily except methotrexate days 2 mg (2 x 1 mg) PO DAILY 90 tabs 1RF M05.9 - Rheumatoid arthritis with rheumatoid factor, unspecified Coding Level of Care Code Est Pt Level 4 (10114) Complex EM visit Add On G2211 Diagnoses Seropositive rheumatoid arthritis M05.9 Transaminitis R74.01 Osteopenia after menopause M85.80; Z78.0 Methotrexate, termite technician, current use Z79.631 Adalimumab long-term use Z79.620
[2024-01-13 12:31] VITALS: BP 124/72; PULSE 49; O2SAT 100; BMI 24.3
== END 2024-01-13 13:18 | disposition home or self-care (01) ==
PROVIDERS: PCP Internal Medicine; Visit Provider Student in an Organized Health Care Education/Training Program
DX: M05.79 Rheumatoid arthritis with rheumatoid factor of multiple sites without organ or systems involvement (principal); R74.01 Elevation of levels of liver transaminase levels; M85.80 Other specified disorders of bone density and structure, unspecified site; Z78.0 Asymptomatic menopausal state; Z79.631 Long term (current) use of antimetabolite agent; Z79.620 Long term (current) use of immunosuppressive biologic
CPT/HCPCS: 99215; G2211

== ENCOUNTER 2024-01-27 12:53 | Outpatient (AMB) | payer MEDICARE, SELFPAY ==
--- NOTE | 2024-01-27 13:01 | MHC.OFFVIS ---
Vital Signs 01/27/24 13:03 Height 5 ft 3 in Weight 139 lb 1.787 oz BMI 24.6 BP 122/74 Blood Pressure Location Lt brachial Position Sitting Pulse 78 Pulse Source Pulse Oximeter Pulse Oximetry (%) 100 Oxygen Delivery Method Room Air Intake Visit Reasons: RA Intake Note: Patient presents today for follow up on RA and lab review, last seen in the office by Dr. Jeronimo on 01/13/24. Allergies diphtheria,pertussis (acellular),te [From Boostrix Tdap] Allergy (Severe, Verified 01/13/24 12:32) throat closing influenza virus vaccine tv splt 2012-14 (4 yr,up) [From Fluvirin] Allergy (Severe, Verified 01/13/24 12:32) throat closing mannitol [From Reclast] Allergy (Severe, Verified 01/13/24 12:32) throat closing water for injection,sterile [From Reclast] Allergy (Severe, Verified 01/13/24 12:32) throat closing zoledronic acid [From Reclast] Allergy (Severe, Verified 01/13/24 12:32) throat closing Sulfa (Sulfonamide Antibiotics) Allergy (Intermediate, Verified 01/13/24 12:32) rash Medication List - Last Reconciled 01/27/24 by Charlene Jeronimo MD cholecalciferol (vitamin D3) 25 mcg PO DAILY folic acid 2 mg (2 x 1 mg) PO DAILY Humira(CF) Pen (adalimumab) 40 mg (0.4 mL) subcut Q2W NS mecobalamin (vitamin B12) 1,000 mcg PO DAILY meloxicam 15 mg PO DAILY PRN methotrexate sodium 20 mg (8 x 2.5 mg) PO QWEEK sennosides-docusate sodium 8.6-50 mg (Senokot-S) 1 tab-cap PO BEDTIME PRN HPI Comments Details: Patient is a 73-year-old female with seropositive nonerosive rheumatoid arthritis who presents for follow-up Interval History: Last seen 01/13/2024 with me. At that time she was in remission on Humira and methotrexate. There was concern about methotrexate induced liver toxicity due to elevated transaminases and so labs were repeated and she is here today for follow-up. No new complaints today. Rheumatologic History: RA: Diagnosed in her 20s Increased Mtx and Added Humira Osteoporosis: 11/26 DEXA : T score at hip -1.9. T score at LS spine -1.1, FRAX: 43% estimated fracture risk, 4.3% for hip fracture risk Intolerant of alendronate: Heartburn and nausea. Infusion reaction with zoledronic acid: July 2017 T scores: 11/2020: LS -0.8; hip -1.6 02/2023 LS -2.2; hip - 1.1 Current Rheumatology Medications: Methotrexate 20mg weekly Folic Acid 1mg daily Humira 40mg SC every 2 weeks [facility] Medical History (Updated 01/13/24 @ 13:16 by Charlene Jeronimo MD) Long-term use of immunosuppressant medication Osteoarthritis of hips, bilateral Seropositive rheumatoid arthritis Surgical History H/O oral surgery Family History Sister Rheumatoid arthritis Social History Household Members: Significant Other Housing: House Are you a primary healthcare corporate account director to a significant other at home: No Do you presently have visiting nurse or other home services: No 75 years or older and lives alone: No Alcohol intake: current Alcohol intake frequency: holidays/special occasions only Patient Tobacco Use Status: Never used Tobacco service: No Current occupation: [employer] Review of Systems Const Details: Review of Systems Constitutional: Denies fever, chills, weight loss ENT: Denies vision changes, eye pain or eye redness, dental caries, dry mouth GI: Denies nausea, vomiting, diarrhea, abdominal pain, change in BM Pulm: Denies SOB, PITT, hemoptysis, wheezing Cards: Denies chest pain, palpitations Skin: Denies Raynaud's, rash, nail changes, photosensitivity, PUG MILL OPERATOR HELPER: Denies headaches, weakness, paresthesias, recurrent falls MSK: as per HPI All other systems reviewed and are unremarkable except noted above Physical Exam Vital Signs: Last Vital Signs Pulse 78 01/27/24 13:03 BP 122/74 01/27/24 13:03 Pulse Ox 100 01/27/24 13:03 Oxygen Delivery Method Room Air 01/27/24 13:03 BMI result Body Mass Index 24.6 Const Other: Physical Examination Patient well appearing and in no apparent painful distress Able to rise from chair without support. ?Gait normal. Constitutional Mucous membranes pink and moist patient alert and cooperative HEENT Conjunctiva and sclera clear. ?Pupils equal round and reactive to light. ?No lymphadenopathy. ?Normal dentition. Respiratory System Normal respiratory effort and able to speak in complete sentences. ?Clear to auscultation bilaterally. ?No crackles, rales, rhonchi, wheezes heard. Cardiac System Regular rate and rhythm. ?S1 and S2 heard no murmurs. ?Radial pulses intact bilaterally MSK No deformity, swelling, abnormalities noted to bilateral hands. ?No evidence of synovitis. ?Able to move all joints with full range of motion, without limitation. Hands:.??Normal pain-free range of motion without tenderness, swelling, increased warmth or erythema. Able to make a full fist and has a good rattan worker strength. Wrists: Normal pain-free range of motion without tenderness, swelling, increased warmth or erythema. Elbows: Full range of motion without pain. No tenderness, weakness, swelling, increased warmth or erythema. Shoulders: Full range of motion without pain. No tenderness, weakness, swelling, increased warmth or erythema. Hips: Full range of motion without pain. Hip bursa:.??No tenderness. Knees:.???Normal pain-free range of motion without tenderness, swelling, increased warmth or erythema.??There is no effusion or crepitation. tenderness to right lateral, area of fibia head Ankles:.??Normal pain-free range of motion without tenderness, swelling, increased warmth or erythema. Feet:.??Normal pain-free range of motion without tenderness, swelling, increased warmth or erythema. Tender points:??No tenderness to digital palpation at the occiput, trapezius, second rib, lateral epicondyle, knees, greater trochanter bilaterally, and left gluteal. Results Reviewed Results Reviewed: Laboratory Tests 08/20/23 01/13/24 13:44 16:25 WBC 3.7 L 4.2 L RBC 3.73 L 3.38 L Hgb 12.2 11.4 L Hct 36.7 L 33.9 L ESR 18 13 Sodium 142 142 Potassium 3.8 3.8 Chloride 105 106 Carbon Dioxide 28 31 H BUN 16 14 Creatinine 0.73 0.88 Total Bilirubin 0.7 0.5 AST 35 H 24 ALT 33 H 19 Alkaline Phosphatase 63 68 C-Reactive Protein < 0.04 < 0.04 Assessment & Plan Assessment & Plan (1) Seropositive rheumatoid arthritis: Comment: Onset probably in 1994. Hydroxychloroquine since 2006. Methotrexate added in August 2012. Last eye exam [place] 07/2021. Humira added 09/2022 and MTx increased at that time also. hydroxychlororquine stopped 01/2023 Code(s): M05.9 - Rheumatoid arthritis with rheumatoid factor, unspecified Category: Medical Plan: #Seropositive Non erosive RA Patient with seropositive nonerosive RA currently in remission. CDAI 0 Doing well on the Humira and methotrexate. We will decrease the methotrexate from 20 mg to 15 mg since she is having bicytopenia involving neutrophils and lymphocytes. If she has continues to do well we could consider moving down to 12.5 mg methotrexate but we will discuss this at next visit. (2) Transaminitis: Code(s): R74.01 - Elevation of levels of liver transaminase levels Plan: #Transaminitis AST and ALT improved. (3) Osteopenia after menopause: Comment: 11/26 DEXA : T score at hip -1.9. T score at LS spine -1.1, FRAX: 43% estimated fracture risk, 4.3% for hip fracture risk Intolerant of alendronate: Heartburn and nausea. Infusion reaction with zoledronic acid: July 2017 T scores: 11/2020: LS -0.8; hip -1.6 02/2023 LS -2.2; hip - 1.1 Code(s): M85.80 - Other specified disorders of bone density and structure, unspecified site; Z78.0 - Asymptomatic menopausal state Category: Medical Plan: #Osteopenia Patient with osteopenia particularly in the lumbar spine. Discussed calcium and vitamin-D supplementation which she is already doing. Also discussed weight-bearing exercises which she is already doing as well. (4) Methotrexate, termite control representative, current use: Code(s): Z79.631 - penitentiary (current) use of antimetabolite agent Plan: #Long-term Current Use of Methotrexate Discussed with patient the benefits and risks of methotrexate for managing their rheumatic condition Benefits include reduced pain, reduced mortality, maintenance of remission and reduction of flares Risks include oral ulcers, photosensitivity, hepatotoxicity, hematologic toxicity, pneumonitis, flu-like symptoms (especially day after administration), nodulosis, lymphomas ? Limit alcohol and avoid Bactrim ? Monitoring: ?CBC, BMP, LFTs, hepatitis serologies as needed (5) Adalimumab long-term use: Code(s): Z79.620 - penitentiary (current) use of immunosuppressive biologic Plan: #Long-term Use of TNF Inhibitors: Martina Discussed with the patient the benefits and risks of TNF inhibitors for the management of the rheumatic condition Benefits include reduce pain, maintenance of remission and reduction of flares as well as ?progression of the disease Risks include injection sites/infusion reactions, serious infections (such as bacterial infections, opportunistic infections), malignancy, delaminating syndromes, autoimmune phenomena, CHF exacerbations, palmar plantar psoriasis and cytopenias Recommended rotating injection sites, and holding medication during and for up to 1 week after resolution of a febrile illness or open skin wound Plan I spent 20 minutes reviewing the record and labs, seeing the patient, discussing the treatment plan and documenting in the medical record Orders: Orders C Reactive Protein Today M05.9 - Rheumatoid arthritis with rheumatoid factor, unspecified Comprehensive Met. Panel Today M05.9 - Rheumatoid arthritis with rheumatoid factor, unspecified Erythrocyte Sedimentation Rate Today M05.9 - Rheumatoid arthritis with rheumatoid factor, unspecified Complete Blood Count Auto Diff Today M05.9 - Rheumatoid arthritis with rheumatoid factor, unspecified Coding Level of Care Code Est Pt Level 3 (16511) Complex EM visit Add On G2211 Diagnoses Seropositive rheumatoid arthritis M05.9 Transaminitis R74.01 Osteopenia after menopause M85.80; Z78.0 Methotrexate, termite control representative, current use Z79.631 Adalimumab long-term use Z79.620
[2024-01-27 13:03] VITALS: BP 122/74; PULSE 78; O2SAT 100; BMI 24.6
== END 2024-01-27 13:30 | disposition home or self-care (01) ==
PROVIDERS: PCP Internal Medicine; Visit Provider Student in an Organized Health Care Education/Training Program
DX: M05.79 Rheumatoid arthritis with rheumatoid factor of multiple sites without organ or systems involvement (principal); R74.01 Elevation of levels of liver transaminase levels; M85.80 Other specified disorders of bone density and structure, unspecified site; Z78.0 Asymptomatic menopausal state; Z79.631 Long term (current) use of antimetabolite agent; Z79.620 Long term (current) use of immunosuppressive biologic
CPT/HCPCS: 99213; G2211

== ENCOUNTER → 2024-01-27 12:53 | Outpatient (BNVA) | payer MEDICARE, SELFPAY | PROVIDERS: PCP Internal Medicine; Visit Provider Student in an Organized Health Care Education/Training Program | DX: M05.9 Rheumatoid arthritis with rheumatoid factor, unspecified (principal); M85.80 Other specified disorders of bone density and structure, unspecified site; R74.01 Elevation of levels of liver transaminase levels; Z79.631 Long term (current) use of antimetabolite agent; Z79.620 Long term (current) use of immunosuppressive biologic | CPT/HCPCS: 99212 ==

== ENCOUNTER 2024-04-28 14:01 | Outpatient (REF) | payer MEDICARE, SELFPAY ==
[2024-04-28 14:12] LABS: MANUAL DIFF FLAG NO
[2024-04-28 14:52] LABS: Basophils Percent Auto 0.5 % (0-2); Eosinophils Percent Auto 0.5 % (0-4); Hematocrit 36.6 % (37.0-47.0); Hemoglobin 12.1 g/dl (12.0-16.0); Imm Gran Abs Auto 0.02 X10*3/uL (0.00-0.03); Imm Gran Pct Auto 0.3 % (0.0-0.4); Lymphocytes Absolute Auto 1.5 X10*3/uL (1.2-4.9); Lymphocytes Percent Auto 24.8 % (20-40); Mean Corpuscular HGB Conc 33.1 g/dl (31.0-35.0); Mean Corpuscular Hemoglobin 32.9 pg (27.0-33.0); Mean Corpuscular Volume 99.5 fL (80.0-98.0); Mean Platelet Volume 11.3 fL (9.4-12.3); Monocytes Absolute Auto 0.6 X10*3/uL (0.1-1.2); Monocytes Percent Auto 10.4 % (2-11); Neutrophils Absolute Auto 3.7 x10*3/uL (2.0-8.3); Neutrophils Percent Auto 63.5 % (45-73); Platelet Count 220 X10*3/uL (160-400); Red Blood Count 3.68 X10*6/uL (4.20-5.50); Red Cell Distribution Width 14.6 % (11.0-16.0); White Blood Count 5.9 X10*3/uL (4.8-10.8)
[2024-04-28 15:24] LABS: Alanine Aminotransferase 16 U/L (0-31); Albumin Level 4.5 g/dL (3.5-5.0); Alkaline Phosphatase 75 U/L (39-117); Anion Gap 14 (12-20); Aspartate Amino Transferase 27 U/L (5-31); Bilirubin Total 0.6 mg/dL (0.0-1.0); Blood Urea Nitrogen 17 mg/dL (9-16); C Reactive Protein < 0.04 mg/dL (< or = 0.50); Calcium 9.6 mg/dL (8.4-10.2); Carbon Dioxide 28 mmol/L (22-29); Chloride 106 mmol/L (96-108); Estimated Glomerular Filt Rate > 60; Glucose Random 79 mg/dL (60-115); Potassium 3.7 mmol/L (3.3-5.1); Sodium 144 mmol/L (135-145); Total Protein 7.7 g/dL (6.5-8.0)
[2024-04-28 15:30] LABS: Erythrocyte Sedimentation Rate 12 MM/HR (0-20)
== END 2024-04-28 14:02 | disposition home or self-care (01) ==
LOC: HO.LAB 14:01
PROVIDERS: PCP Internal Medicine; Visit Provider Student in an Organized Health Care Education/Training Program
DX: M05.9 Rheumatoid arthritis with rheumatoid factor, unspecified (principal)
CPT/HCPCS: 36415; 80053; 85025; 85652; 86140

== ENCOUNTER 2024-05-02 12:18 | Outpatient (AMB) | payer MEDICARE, SELFPAY ==
--- NOTE | 2024-05-02 12:37 | MHC.OFFVIS ---
Vital Signs 05/02/24 12:42 Height 5 ft 3 in Weight 136 lb 14.513 oz BMI 24.2 BP 124/80 Blood Pressure Location Rt brachial Position Sitting Pulse 65 Pulse Source Pulse Oximeter Pulse Oximetry (%) 99 Oxygen Delivery Method Room Air Intake Visit Reasons: RA Intake Note: Patient presents for RA. Allergies diphtheria,pertussis (acellular),te [From Boostrix Tdap] Allergy (Severe, Verified 05/02/24 12:41) throat closing influenza virus vaccine tv splt 2012- (4 yr,up) [From Fluvirin] Allergy (Severe, Verified 05/02/24 12:41) throat closing mannitol [From Reclast] Allergy (Severe, Verified 05/02/24 12:41) throat closing water for injection,sterile [From Reclast] Allergy (Severe, Verified 05/02/24 12:41) throat closing zoledronic acid [From Reclast] Allergy (Severe, Verified 05/02/24 12:41) throat closing Sulfa (Sulfonamide Antibiotics) Allergy (Intermediate, Verified 05/02/24 12:41) rash Medication List - Last Reconciled 05/02/24 by Charlene Jeronimo MD cholecalciferol (vitamin D3) 25 mcg PO DAILY folic acid 2 mg (2 x 1 mg) PO DAILY Humira(CF) Pen (adalimumab) 40 mg (0.4 mL) subcut Q2W 30 days NS mecobalamin (vitamin B12) 1,000 mcg PO DAILY meloxicam 15 mg PO DAILY PRN methotrexate sodium 12.5 mg (5 x 2.5 mg) PO QWEEK 90 days sennosides-docusate sodium 8.6-50 mg (Senokot-S) 1 tab-cap PO BEDTIME PRN HPI Comments Details: Patient is a 73-year-old female with seropositive nonerosive rheumatoid arthritis who presents for follow-up Interval History: Last seen 01/13/2024 with me. At that time she was in remission on Humira and methotrexate. Her methotrexate was decreased to 6 pills on a background of transaminitis. Repeat labs show resolution of her transaminitis and her bicytopenia Patient is tolerating the 6 pills well without any return of morning stiffness or joint pain Today her only complaint is her reducible deformity to the 1st CMC of the right hand. It impedes her ability to use machinery. Rheumatologic History: RA: Diagnosed in her 20s Increased Mtx and Added Humira Osteoporosis: 11/26 DEXA : T score at hip -1.9. T score at LS spine -1.1, FRAX: 43% estimated fracture risk, 4.3% for hip fracture risk Intolerant of alendronate: Heartburn and nausea. Infusion reaction with zoledronic acid: July 2017 T scores: 11/2020: LS -0.8; hip -1.6 02/2023 LS -2.2; hip - 1.1 Current Rheumatology Medications: Methotrexate 15mg weekly Folic Acid 1mg daily Humira 40mg SC every 2 weeks [facility] Medical History (Updated 05/02/24 @ 13:08 by Charlene Jeronimo MD) Osteoarthritis of hands, bilateral Long-term use of immunosuppressant medication Osteoarthritis of hips, bilateral Seropositive rheumatoid arthritis Surgical History H/O oral surgery Family History Sister Rheumatoid arthritis Social History Household Members: Significant Other Housing: House Are you a primary caregiver services home to a significant other at home: No Do you presently have visiting nurse or other home services: No 75 years or older and lives alone: No Alcohol intake: current Alcohol intake frequency: holidays/special occasions only Patient Tobacco Use Status: Never used Tobacco service: No Current occupation: [employer] Review of Systems Const Details: Review of Systems Constitutional: Denies fever, chills, weight loss ENT: Denies vision changes, eye pain or eye redness, dental caries, dry mouth GI: Denies nausea, vomiting, diarrhea, abdominal pain, change in BM Pulm: Denies SOB, PITT, hemoptysis, wheezing Cards: Denies chest pain, palpitations Skin: Denies Raynaud's, rash, nail changes, photosensitivity, ADMISSIONS OFFICER: Denies headaches, weakness, paresthesias, recurrent falls MSK: as per HPI All other systems reviewed and are unremarkable except noted above Physical Exam Vital Signs: Physical Examination Patient well appearing and in no apparent painful distress Able to rise from chair without support. ?Gait normal. Constitutional Mucous membranes pink and moist patient alert and cooperative HEENT Conjunctiva and sclera clear. ?Pupils equal round and reactive to light. ?No lymphadenopathy. ?Normal dentition. Respiratory System Normal respiratory effort and able to speak in complete sentences. ?Clear to auscultation bilaterally. ?No crackles, rales, rhonchi, wheezes heard. Cardiac System Regular rate and rhythm. ?S1 and S2 heard no murmurs. ?Radial pulses intact bilaterally MSK No deformity, swelling, abnormalities noted to bilateral hands. ?No evidence of synovitis. ?Able to move all joints with full range of motion, without limitation. Hands:.??Normal pain-free range of motion without tenderness, swelling, increased warmth or erythema. Able to make a full fist and has a good student financial aid manager strength. Squaring of the 1st CMC of the right hand Wrists: Normal pain-free range of motion without tenderness, swelling, increased warmth or erythema. Elbows: Full range of motion without pain. No tenderness, weakness, swelling, increased warmth or erythema. Shoulders: Full range of motion without pain. No tenderness, weakness, swelling, increased warmth or erythema. Hips: Full range of motion without pain. Hip bursa:.??No tenderness. Knees:.???Normal pain-free range of motion without tenderness, swelling, increased warmth or erythema.??There is no effusion or crepitation. tenderness to right lateral, area of fibia head Ankles:.??Normal pain-free range of motion without tenderness, swelling, increased warmth or erythema. Feet:.??Normal pain-free range of motion without tenderness, swelling, increased warmth or erythema. Tender points:??No tenderness to digital palpation at the occiput, trapezius, second rib, lateral epicondyle, knees, greater trochanter bilaterally, and left gluteal. Const Other: Physical Examination Patient well appearing and in no apparent painful distress Able to rise from chair without support. ?Gait normal. Constitutional Mucous membranes pink and moist patient alert and cooperative HEENT Conjunctiva and sclera clear. ?Pupils equal round and reactive to light. ?No lymphadenopathy. ?Normal dentition. Respiratory System Normal respiratory effort and able to speak in complete sentences. ?Clear to auscultation bilaterally. ?No crackles, rales, rhonchi, wheezes heard. Cardiac System Regular rate and rhythm. ?S1 and S2 heard no murmurs. ?Radial pulses intact bilaterally MSK No deformity, swelling, abnormalities noted to bilateral hands. ?No evidence of synovitis. ?Able to move all joints with full range of motion, without limitation. Hands:.??Normal pain-free range of motion without tenderness, swelling, increased warmth or erythema. Able to make a full fist and has a good student financial aid manager strength. Wrists: Normal pain-free range of motion without tenderness, swelling, increased warmth or erythema. Elbows: Full range of motion without pain. No tenderness, weakness, swelling, increased warmth or erythema. Shoulders: Full range of motion without pain. No tenderness, weakness, swelling, increased warmth or erythema. Hips: Full range of motion without pain. Hip bursa:.??No tenderness. Knees:.???Normal pain-free range of motion without tenderness, swelling, increased warmth or erythema.??There is no effusion or crepitation. tenderness to right lateral, area of fibia head Ankles:.??Normal pain-free range of motion without tenderness, swelling, increased warmth or erythema. Feet:.??Normal pain-free range of motion without tenderness, swelling, increased warmth or erythema. Tender points:??No tenderness to digital palpation at the occiput, trapezius, second rib, lateral epicondyle, knees, greater trochanter bilaterally, and left gluteal. Results Reviewed Results Reviewed: Laboratory Tests 09/14/22 08/20/23 01/13/24 10:15 13:44 16:25 WBC 3.7 L 4.2 L RBC 3.73 L 3.38 L Hgb 12.2 11.4 L Hct 36.7 L 33.9 L Plt Count 230 199 ESR 18 13 Sodium 142 142 Potassium 3.8 3.8 Chloride 105 106 Carbon Dioxide 28 31 H BUN 16 14 Creatinine 0.73 0.88 Total Bilirubin 0.7 0.5 AST 35 H 24 ALT 33 H 19 Alkaline Phosphatase 63 68 C-Reactive Protein < 0.04 < 0.04 Total Protein 7.3 7.0 Albumin 4.3 4.3 Hepatitis A IgM Ab Nonreactive Hep Bs Antigen Negative Hep Bs Antibody NONREACTIVE Hep B Core Total Ab Nonreactive Hepatitis C Ab (EIA) Nonreactive TB Test Nil Control Passed 04/28/24 14:11 WBC 5.9 RBC 3.68 L Hgb 12.1 Hct 36.6 L Plt Count 220 ESR 12 Sodium 144 Potassium 3.7 Chloride 106 Carbon Dioxide 28 BUN 17 H Creatinine 0.72 Total Bilirubin 0.6 AST 27 ALT 16 Alkaline Phosphatase 75 C-Reactive Protein < 0.04 Total Protein 7.7 Albumin 4.5 Hepatitis A IgM Ab Hep Bs Antigen Hep Bs Antibody Hep B Core Total Ab Hepatitis C Ab (EIA) TB Test Nil Control Assessment & Plan Assessment & Plan (1) Seropositive rheumatoid arthritis: Comment: Onset probably in 1994. Hydroxychloroquine since 2006. Methotrexate added in August 2012. Last eye exam [place] 07/2021. Humira added 09/2022 and MTx increased at that time also. hydroxychlororquine stopped 01/2023 Code(s): M05.9 - Rheumatoid arthritis with rheumatoid factor, unspecified Category: Medical Plan: #Seropositive Non erosive RA Patient with seropositive nonerosive RA currently in remission. CDAI 0 Doing well on the Humira and methotrexate. We will continue methotrexate taper to 12.5 mg today Plan - Methotrexate 12.5mg weekly - Folic acid 2mg daily - Humira 40mg SC every other week - RTC 4 months - Labs prior to visit: CBC, CMP, ESR, CRP (2) Osteopenia after menopause: Comment: 11/26 DEXA : T score at hip -1.9. T score at LS spine -1.1, FRAX: 43% estimated fracture risk, 4.3% for hip fracture risk Intolerant of alendronate: Heartburn and nausea. Infusion reaction with zoledronic acid: July 2017 T scores: 11/2020: LS -0.8; hip -1.6 02/2023 LS -2.2; hip - 1.1 Code(s): M85.80 - Other specified disorders of bone density and structure, unspecified site; Z78.0 - Asymptomatic menopausal state Category: Medical Plan: #Osteopenia Patient with osteopenia particularly in the lumbar spine. Discussed calcium and vitamin-D supplementation which she is already doing. Also discussed weight-bearing exercises which she is already doing as well. Plan - Repeat DEXA 02/2025 - Vit D supplementation - Weight bearing exercises (3) Osteoarthritis of hands, bilateral: Code(s): M19.041 - Primary osteoarthritis, right hand; M19.042 - Primary osteoarthritis, left hand Category: Medical Qualifiers: Osteoarthritis type: primary Qualified Code(s): M19.041 - Primary osteoarthritis, right hand; M19.042 - Primary osteoarthritis, left hand Plan: #Bilateral Hand OA Patient with issues of the squaring of the 1st CMC joint. 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 Limit alcohol and avoid Bactrim ? Monitoring: ?CBC, BMP, LFTs, hepatitis serologies as needed (5) Adalimumab long-term use: Code(s): Z79.620 - terminal make up operator (current) use of immunosuppressive biologic Plan: #Long-term Use of TNF Inhibitors: Humira Discussed with the patient the benefits and risks of TNF inhibitors for the management of the rheumatic condition Benefits include reduce pain, maintenance of remission and reduction of flares as well as ?progression of the disease Risks include injection sites/infusion reactions, serious infections (such as bacterial infections, opportunistic infections), malignancy, delaminating syndromes, autoimmune phenomena, CHF exacerbations, palmar plantar psoriasis and cytopenias Recommended rotating injection sites, and holding medication during and for up to 1 week after resolution of a febrile illness or open skin wound Plan I spent 30 minutes reviewing the record and labs, seeing the patient, discussing the treatment plan and documenting in the medical record Orders: Orders Comprehensive Met. Panel 4 Months M05.9 - Rheumatoid arthritis with rheumatoid factor, unspecified C Reactive Protein 4 Months M05.9 - Rheumatoid arthritis with rheumatoid factor, unspecified Erythrocyte Sedimentation Rate 4 Months M05.9 - Rheumatoid arthritis with rheumatoid factor, unspecified Complete Blood Count Auto Diff 4 Months M05.9 - Rheumatoid arthritis with rheumatoid factor, unspecified OT Evaluation and Treatment 4 Months M05.9 - Rheumatoid arthritis with rheumatoid factor, unspecified, M19.041 - Primary osteoarthritis, right hand, M19.042 - Primary osteoarthritis, left hand Medications: Changed From Humira(CF) Pen (adalimumab) 40 mg (0.4 mL) subcut Q2W 90 days 2 ea 2RF NS M05.9 - Rheumatoid arthritis with rheumatoid factor, unspecified To Humira(CF) Pen (adalimumab) 40 mg (0.4 mL) subcut Q2W 30 days 2 ea 4RF NS M05.9 - Rheumatoid arthritis with rheumatoid factor, unspecified From methotrexate sodium 20 mg (8 x 2.5 mg) PO QWEEK 96 tabs 1RF M05.9 - Rheumatoid arthritis with rheumatoid factor, unspecified To methotrexate sodium 12.5 mg (5 x 2.5 mg) PO QWEEK 90 days 65 tabs 1RF M05.9 - Rheumatoid arthritis with rheumatoid factor, unspecified Refilled folic acid Daily except methotrexate days 2 mg (2 x 1 mg) PO DAILY 90 tabs 1RF M05.9 - Rheumatoid arthritis with rheumatoid factor, unspecified Coding Level of Care Code Est Pt Level 4 (38714) Complex EM visit Add On G2211 Diagnoses Seropositive rheumatoid arthritis M05.9 Osteopenia after menopause M85.80; Z78.0 Primary osteoarthritis of both hands M19.041; M19.042 Osteoarthritis type: primary Methotrexate, intermediate, current use Z79.631 Adalimumab long-term use Z79.620
[2024-05-02 12:42] VITALS: BP 124/80; PULSE 65; O2SAT 99; BMI 24.2
== END 2024-05-02 13:04 | disposition home or self-care (01) ==
PROVIDERS: PCP Internal Medicine; Visit Provider Student in an Organized Health Care Education/Training Program
DX: M05.79 Rheumatoid arthritis with rheumatoid factor of multiple sites without organ or systems involvement (principal); M85.80 Other specified disorders of bone density and structure, unspecified site; Z78.0 Asymptomatic menopausal state; M19.041 Primary osteoarthritis, right hand; M19.042 Primary osteoarthritis, left hand; Z79.631 Long term (current) use of antimetabolite agent; Z79.620 Long term (current) use of immunosuppressive biologic
CPT/HCPCS: 99214; G2211

== ENCOUNTER → 2024-05-02 12:18 | Outpatient (BNVA) | payer MEDICARE, SELFPAY | PROVIDERS: PCP Internal Medicine; Visit Provider Student in an Organized Health Care Education/Training Program | DX: M05.9 Rheumatoid arthritis with rheumatoid factor, unspecified (principal); M85.80 Other specified disorders of bone density and structure, unspecified site; M19.041 Primary osteoarthritis, right hand; M19.042 Primary osteoarthritis, left hand; Z79.631 Long term (current) use of antimetabolite agent; Z79.620 Long term (current) use of immunosuppressive biologic; Z79.899 Other long term (current) drug therapy | CPT/HCPCS: 99212 ==

== ENCOUNTER 2024-08-21 15:21 | Outpatient (REF) | payer MEDICARE, SELFPAY ==
--- OUTSIDE RECORDS SUMMARY | 2024-08-21 15:24 | XMS_ITS | Encounter Summary ---
Author Organization [facility]ly [facility] Address [address] [place] [address] Care Team Providers Care Customer Support Coordinator Name Role Phone Janie Sidhu MD Primary Care Provider Clement Mcgill MD Primary Care Provider Clement Encinas MD Primary Care Provider Huma Segura MD Primary Care Prov ider Bridger Verduzco MD Unavailable Unavaila ble Encounter Details Date Type Department Care Team Description 06/16/2013 Hospital Medical Records [address] [place] [id number] Ottoniel Win MD Social History Tobacco Use Types Packs/Day Years Used Date Smoking Tobacco: Never Smokeless Tobacco: Never Alcohol Use Standard Drinks/Week Comments No 0.8 (1 standard drink = 0.6 oz p ure alcohol) Sex Assigned at Date Recorded Female 09/17/2020 8:09 AM E DT Job Start Date Occupation Industry Not on file Not on file Not on file documented as of this encounter Plan of Treatment Not on file documented as of this encounter Visit Diagnoses Not on filedocumented in this encounter Care Teams Customer Support Coordinator Relationship Specialty Start Date End Date Janie Sidhu MD PCP - General 09/13/01 02/23/21 Clement Rodney MD PCP - General Internal Medicine 02/24/21 09/10/21 Clement Rodney MD PCP - General Internal Medicine 09/11/21 12/08/21 Huma Holden MD [address] [place] [address] PCP - General Internal Medicine 12/09/21 Bridger Verduzco MD [address] [place] [address] Specialist Rheumatology 03/16/23 documented as of this encounter
--- OUTSIDE RECORDS SUMMARY | 2024-08-21 15:24 | XMS_ITS | Encounter Summary ---
Author Organization [facility] Address [address] [place] [address] Care Team Providers Care Bank Vault Custodian Name Role Phone Janie Sidhu MD Primary Care Provider Clement Mcgill MD Primary Care Provider Clement Encinas MD Primary Care Provider Huma Segura MD Primary Care Prov ider Bridger Verduzco MD Unavailable Unavaila ble Encounter Details Date Type Department Care Team Description 07/10/2010 Eye Clothespin Machine Operator Report Medical Records [address] [place] [address] Iesha Qureshi Social History Tobacco Use Types Packs/Day Years Used Date Smoking Tobacco: Never Alcohol Use Standard Drinks/Week Comments [...] on filedocumented in this encounter Care Teams Bank Vault Custodian Relationship Specialty Start Date End Date Janie Sidhu MD PCP - General 09/13/01 02/23/21 Clement Rodney MD PCP - General Internal Medicine 02/24/21 09/10/21 Clement Rodney MD PCP - General Internal Medicine 09/11/21 12/08/21 Huma Holden MD [address] [place], [place] [id number] PCP - General Internal Medicine 12/09/21 Bridger Verduzco MD [address] [place] [address] Specialist Rheumatology 03/16/23 documented as of this encounter
--- OUTSIDE RECORDS SUMMARY | 2024-08-21 15:24 | XMS_ITS | Encounter Summary ---
Author Organization [facility] Address [address] [place] [address] Care Team Providers Care Bird Cage Assembler Name Role Phone Huma Holden MD Primary Care Prov ider Bridger Verduzco MD Unavailable Unavaila ble Encounter Details Date Type Department Care Team Description 10/12/2023 Orders Only Medical Records [address] [place] [address] Lnace Harley DO [address] [facility] [address] [facility] [place] [address] Social History Tobacco Use Types Packs/Day Years Used Date Smoking Tobacco: Never Smokeless Tobacco: Never Alcohol Use Standard Drinks/Week Comments No 0.8 (1 standard drink = 0.6 oz p ure alcohol) Sex Assigned at Date Recorded Female 09/17/2020 8:09 AM E DT Job Start Date Occupation Industry Not on file Not on file Not on file documented as of this encounter Progress Notes * Neelima Aceves - 10/13/2023 9:27 AM EDT Letter mailled. Recall placed. * Lance Harley DO - 10/13/2023 6:32 AM EDT Please let the patient know that the colon polyp removed was benign, but precancerous. Given the type and size of the polyp, and based on current guidelines, I recommend that a repeat screening colonoscopy is in [address] a reminder on the system for the patient to be contacted to have a repeat screening colonoscopy in 5 years. High-fiber diet and avoidance of processed foods recommended. The patient may follow-up with a primary care provider as instructed. Thank you. documented in this encounter Plan of Treatment Not on file documented as of this encounter Procedures Procedure Name Priority Date/Time Associated Diagnosis Comments OUTSIDE PATHOLOGY Routine 10/06/2023 documented in this encounter Results * OUTSIDE PATHOLOGY (10/06/2023) Lance Harley DO OUTSIDE LAB documented in this encounter Visit Diagnoses Not on filedocumented in this encounter Care Teams Bird Cage Assembler Relationship Specialty Start Date End Date Huma Holden MD [address] [place] [address] PCP - General Internal Medicine 12/09/21 Bridger Verduzco MD [address] [place] [address] Specialist Rheumatology 03/16/23 documented as of this encounter
--- OUTSIDE RECORDS SUMMARY | 2024-08-21 15:24 | XMS_ITS | Encounter Summary ---
Author Organization [email or web address] [facility] Address [address] [place] [address] Care Team Providers Care Promotions Specialist Name Role Phone Huma Holden MD Primary Care Prov ider Bridger Verduzco MD Unavailable Unavaila ble Encounter Details Date Type Department Care Team Description 03/10/2023 Parts Cataloger Report Medical Records [address] [place] [address] Bridger Verduzco MD Social History Tobacco Use Types Packs/Day [...] on filedocumented in this encounter Care Teams Promotions Specialist Relationship Specialty Start Date End Date Huma Holden MD [address] [place] [id number] PCP - General Internal Medicine 12/09/21 Bridger Verduzco MD [address] [place] [address] Specialist Rheumatology 03/16/23 documented as of this encounter
--- OUTSIDE RECORDS SUMMARY | 2024-08-21 15:24 | XMS_ITS | Encounter Summary ---
Author Organization [facility] Address [address] [place] [address] Care Team Providers Care Waiter/Waitress Name Role Phone Clement Rodney MD Primary Care Provider Huma Segura MD Primary Care Prov ider Bridger Verduzco MD Unavailable Unavaila ble Reason for Visit * Reason Onset Date Comments Failed COVID Screening 11/17/2021 Encounter Details Date Type Department Care Team Description 11/17/2021 Pt. Non Urgent Medic al Question Adult Medicine [address] [address] Clement Rodney MD Social History Tobacco Use Types Packs/Day Years Used Date Smoking Tobacco: Never Smokeless Tobacco: Never Alcohol Use Standard Drinks/Week Comments No 0.8 (1 standard drink = 0.6 oz p ure alcohol) Sex Assigned at Date Recorded Female 09/17/2020 8:09 AM E DT Job Start Date Occupation Industry Not on file Not on file Not on file documented as of this encounter Miscellaneous Notes * Telephone Encounter - Annia Padilla M.A. - 11/17/2021 9:53 AM EDTFrom: Janny Muse To: Simeon Rodney Sent: 11/17/2021 9:53 AM EDT Subject: Covid 19 Good Morning, We were on vacation last week and I started feeling sick on Wednesday. I tested positive for covid. What do I need to do? This is the 1st time I've had it. Thanks,Janny Muse 50 documented in this encounter Plan of Treatment Not on file documented as of this encounter Visit Diagnoses Not on filedocumented in this encounter Care Teams Waiter/Waitress Relationship Specialty Start Date End Date Clement Rodney MD PCP - General Internal Medicine 09/11/21 12/08/21 Huma Holden MD [address] [place] [phone] PCP - General Internal Medicine 12/09/21 Bridger Verduzco MD [address] [place] [phone] Specialist Rheumatology 03/16/23 documented as of this encounter
--- OUTSIDE RECORDS SUMMARY | 2024-08-21 15:24 | XMS_ITS | Encounter Summary ---
Author Organization [facility] Address [address] [place] [address] Care Team Providers Care Pipe Organ Technician Name Role Phone Janie Sidhu MD Primary Care Provider Clement Mcgill MD Primary Care Provider Clement Encinas MD Primary Care Provider Huma Segura MD Primary Care Prov ider Bridger Verduzco MD Unavailable Unavaila ble Reason for Visit * Reason Onset Date Comments Prior Authorization 11/04/2016 Encounter Details Date Type Department Care Team Description 11/04/2016 Telephone Radiology - [address] [address] Janie Sidhu MD Prior Authorization Social History Tobacco Use Types Packs/Day Years [...] encounter Miscellaneous Notes * Telephone Encounter - Luda Bernal - 11/04/2016 1:37 PM EDT No auth required * Telephone Encounter - Charissa Melo - 11/04/2016 12:40 PM EDT Requesting prior auth for bone density. Thank you documented in this encounter Plan of Treatment Not on file documented as of this encounter Visit Diagnoses Not on filedocumented in this encounter Care Teams Pipe Organ Technician Relationship Specialty Start Date End Date Janie Sidhu MD PCP - General 09/13/01 02/23/21 Clement Rodney MD PCP - General Internal Medicine 02/24/21 09/10/21 Clement Rodney MD PCP - General Internal Medicine 09/11/21 12/08/21 Huma Holden MD [address] [place] [id number] PCP - General Internal Medicine 12/09/21 Bridger Verduzco MD [address] [place] [id number] Specialist Rheumatology 03/16/23 documented as of this encounter
--- OUTSIDE RECORDS SUMMARY | 2024-08-21 15:24 | XMS_ITS | Encounter Summary ---
Author Organization [employer] [facility] Address [address] [place] [address] Care Team Providers Care Lidar Scientist Name Role Phone Huma Holden MD Primary Care Prov ider Bridger Verduzco MD Unavailable Unavaila ble Encounter Details Date Type Department Care Team Description 04/27/2022 Fibrous Plasterer Report Medical Records [address] [place] [id number] Bridger Verduzco MD Social History Tobacco Use [...] on filedocumented in this encounter Care Teams Lidar Scientist Relationship Specialty Start Date End Date Huma Holden MD [address] [place] [phone] PCP - General Internal Medicine 12/09/21 Bridger Verduzco MD [address] [place] [phone] Specialist Rheumatology 03/16/23 documented as of this encounter
--- OUTSIDE RECORDS SUMMARY | 2024-08-21 15:24 | XMS_ITS | Encounter Summary ---
Author Organization [employer] [facility] Address [address] [place] [address] Care Team Providers Care Supervisor Metal Cans Name Role Phone Huma Holden MD Primary Care Prov ider Bridger Verduzco MD Unavailable Unavaila ble Encounter Details Date Type Department Care Team Description 08/20/2023 Continuity Coordinator Report Medical Records [address] [place] [phone] Luda Romero NP Social History Tobacco Use Types Packs/Day Years [...] on filedocumented in this encounter Care Teams Supervisor Metal Cans Relationship Specialty Start Date End Date Huma Holden MD [address] [place] [phone] PCP - General Internal Medicine 12/09/21 Bridger Verduzco MD [address] [place], [place] [phone] Specialist Rheumatology 03/16/23 documented as of this encounter
--- OUTSIDE RECORDS SUMMARY | 2024-08-21 15:24 | XMS_ITS | Clinical Summary ---
Author Organization [address] Address [address] [place] [phone] Phone Care Team Providers Care Textile Engraver Name Role Phone Huma Feliciano MD Primary Care Prov ider Allergies Active Allergy Reactions Criticality Noted Date Comments Diph,Pertus(Acel),Tet Ped (Pf) Other 01/07/2012 Throat closure Fluvirin [id number] Other 01/07/2012 Throat closure Mannitol High 10/06/2023 Other Reaction(s): leg weakness/nausea/throat closing Sulfacetamide Sodium Hives 01/12/2005 Water For Injection,Sterile High 10/06/19 24 Other Reaction(s): leg weakness/nausea/throat closing Zoledronic Acid Pain High 09/21/2017 Medications calcium carb/vit D3/minerals (CALCIUM-VITAMI N D ORAL) Take by mouth. Activ e cyanocobalamin, vitamin B-12, 1,000 mcg capsule Take 1,000 mcg by mouth. Active folic acid (FOLVITE) 1 mg tablet Take 2 tablets (2,000 mcg total) by mouth 1 (one) time each day. 1 Active adalimumab (Humira,CF, Pen) 40 mg/0.4 mL pen Inject 0.4 mL (40 mg total) under the skin. 3 Active methotrexate (Xatmep) 2.5 mg/mL Take 1 mL (2.5 mg total) by mouth. Take 8 tabs a week - Active Tyrvaya 0.03 mg/spray spray, metered, non-aerosol Administer 1 spray into each nostril 2 (two) times a day. Active Active Problems Problem Noted Date Diagnosed Date Osteopenia 09/21/2017 Overview (01/16/2024): 11/26 DEXA : T score at hip -1.9. T score at LS spine -1.1, FRAX: 43% estimated fracture risk, 4.3% for hip fracture risk Intolerant of alendronate: Heartburn and nausea. Infusion reaction with zoledronic acid: July 2017 Seropositive rheumatoid arth ritis ([facility] V24, [facility] V28) 01/12/2005 Overview (01/16/2024): Onset 1994, seropositive;CCP positive; WALKER positive; some erosive disease 2007 Better in [id number] Plaquenil started Apr 2006; eyes checked 08/18, 07/20, 07/21(Dr. Ayoub). 02/20, 04/25, 05/27, 07/25, 02/27, 05/01, 06/02 Methotrexate added, August 2012 Last Assessment & Plan: increase the methotrexate to 6 tab once a week Lab before next visit Assessment & Plan (02/25/2024 8:22 AM EST): No recent exacerbations. Follows regularly with rheumatology. Currently on Humira, mtx, folic acid. Encouraged to continue her meds as prescribed by the specialist. Immunizations Name Administration Dates Next Due Influenza trivalent, with pr eservative (Fluzone; Afluria) 6mo and older 01/06/2012 Nutrino SARS-CoV-2 COVID-19, mRNA, LNP-S, preservative free 07/18/2020,06/17/2020 Pneumococcal conjugate 13 va lent (Prevnar 13, PCV13) 2mo and older 12/03/2015 Pneumococcal polysaccharide 23 valent (Pneumovax 23) 2yo and older 01/01/2022,05/03/2007 Td Tetanus diptheria (Tdvax) 7yo and older 12/14,01/24/1990 Tdap Tetanus diptheria acell ular pertussis (Boostrix; Adacel) 7yo and older 01/06/2012 Zoster Live 09/15/2011 Zoster recombinant (Shingrix) 19yo and older ,04/25/2020 Surgical History Surgery Date Site/Laterality Comments CARPAL TUNNEL RELEASE age 50 PROCEDURE: HISTORICAL CARPAL TUNNEL REL; COMMENT: Right OTHER SURGICAL HISTORY age 40's PROCEDURE: [place] EXCISION PREPATELLAR BURSA; COMMENT: Left FLEXIBLE SIGMOIDOSCOPY 06/17/04 PROCEDURE: HISTORICAL FLEXIBLE SIGMOIDOSCOPY COLONOSCOPY 08/03/12 [facility] propofol PROCEDURE: HISTORICAL COLONOSCOPY; COMMENT: tics; repeat in ten yrs FOOT SURGERY 01/24(L), R(04/28) Bilateral PROCEDURE: HISTORICAL FOOT SURGERY; COMMENT: hammertoe repairs Medical History Medical History Date Comments Raynaud's syndrome DX:Raynaud's syndrome Closed fracture of other bone of wrist DX:Closed fracture of other bone of wrist Rheumatoid arthritis(714.0) 01/12/2005 DX:R heumatoid arthritis(714.0); COMMENT: Onset 1994, seropositive;CCP positive; WALKER positive; some erosive disease 2008 Better in [phone] Plaquenil started Apr 2006 Osteopenia 09/21/2017 DX:Osteopenia Family History Medical History Relation Name Comments Asthma Other Father, sister, daughter Other: Joint Problems Other Arthritis Sister 1 RA in two siste rs Breast cancer Neg Hx Colon cancer Neg Hx Ovarian cancer Neg Hx Pancreatic cancer Neg Hx Prostate cancer Neg Hx Uterine cancer Neg Hx Relation Name Status Comments Brother Alive x2, healthy Father (Age 60) CAD age on set 50's, stroke, smoker, asthma Mother Alive healthy, remote [facility] Other Sister 1 Sister 2 Alive x2 w RA: Dee Dee(kristina ldivonne)Dee Dee Ellington & darius (joyce) Social History Tobacco Use Types Packs/Day Years Used Date Smoking Tobacco: Never Smokeless Tobacco: Never Tobacco Cessation:Counseling Given: Not Answered Alcohol Use Standard Drinks/Week Comments No 0.8 (1 standard drink = 0.6 oz p ure alcohol) Housing Instability Answer Date Recorde d Are you worried that in the next 2 months you may not have stable housing? No 02/17/2024 Food Access & Nutrition Answer Date Rec orded Do you have access to a vari ety of food including fruits and vegetables? Yes 02/17/2024 Access to Healthcare Answer Date Record ed Within the last 3 months, ho w many times did you visit the emergency department for your medical care? 0 02/17/2024 Health Literacy Answer Date Recorded How often do you need to hav e someone help you when you read instructions, pamphlets, or other written material from your doctor or pharmacy? Never 02/17/2024 Caregiver: How often do you need to have someone help you when you read instructions, pamphlets, or other written material from your doctor or pharmacy? Not on file 02/17/2024 Financial Risk Answer Date Recorded How hard is it for you to pa y for the very basics like food, housing, medical care, and air conditioning / heating? Not very hard 02/17/2024 Transportation Answer Date Recorded Has the lack of transportati on kept you from meetings, work, or from getting things needed for daily living? No Has the lack of transportati on kept you from medical appointments or from getting medications? No 02/17/2024 Social Isolation Answer Date Recorded How often do you feel lonely or isolated from th ose around you? Never 02/17/2024 Food Risk Answer Date Recorded Within the past 12 months we worried whether our food would run out before we got money to buy more. Never true 02/17/2024 Within the past 12 months th e food we bought just didn't last and we didn't have money to get more. Never true 02/17/2024 Dependent Care Answer Date Recorded Do you need help finding or paying for care for your loved ones. For example, children's program coordinator or elderly care for an older adult? No 02/17/2024 Education Answer Date Recorded Do you think completing more education or training, like finishing a GED, going to college, or learning a trade, would be helpful for you? No 02/17/2024 Employment and Income Answer Date Recor ded During the last four weeks, have you been actively looking for work? No 02/17/2024 Living Situation Answer Date Recorded What is your living situation? 1 04/18/2023 Comments No Sex and Gender Information Value Date Recorded Sex Assigned at Not on file Legal Sex Female 8:58 AM EST Gender Identity Not on file Sexual Orientation Not on file Obstetrics History Last Filed Vital Signs Vital Sign Reading Time Taken Comments Blood Pressure 115/60 03/02/2024 3:19 PM EST Pulse 83 03/02/2024 3:19 PM EST Temperature 36.6 ??C (97.8 ??F) 03/02/2024 3:19 PM ES T Respiratory Rate 15 03/02/2024 3:19 PM EST Oxygen Saturation 97% 03/02/2024 3:19 PM EST Inhaled Oxygen Concentration - - Weight 63.1 kg (139 lb 3.2 oz) 03/02/2024 3:19 P M EST Height 160 cm (5' 3 ) 03/02/2024 3:19 PM EST Body Mass Index 24.66 03/02/2024 3:19 PM EST Plan of Treatment Upcoming Encounters Date Type Department Care Team (Late st Contact Info) Description 01/18/2025 8:30 AM EDT Appointment Radiology Department - [address] [phone] 02/26/2025 8:00 AM EST Office Visit Adult Medicine [facility] - [address] [phone] Huma Feliciano MD [address] [place] [phone] Health Maintenance Due Date Last Done Comments Social Influencers of Health Screening 02/16/2025 02/17/2024 Depression Screening 02/23/2025 02/24/2024 Falls Risk Assessment 02/23/2025 02/24/2024 Medicare Annual Wellness Visit 02/23/2025 02/24/2024 RSV Immunization Adult Patients (1 - 1-dose 75+ series) 2025 Breast Cancer Screening 01/03/2026 01/04/20 24, 01/04/2024, 12/28/2022, Additional history exists Cholesterol Screening (Lipid Panel) 12/22/2027 12/21/2022 Colorectal Cancer Screening: Colonoscopy 10/05/2028 10/06/2023 Osteoporosis Screening (Bone Density Screening) 03/08/2033 03/08/2023, 11/26/2020, 12/01/2016 DTaP,Tdap,and Td Vaccines Discontinued 2011, 12/15/1995, 01/24/1990 Influenza Vaccine Discontinued 01/06/2012 Hepatitis C Screening Completed 08/23/2012 COVID-19 Vaccine Discontinued 07/18/2020, 06/17/2020 Zoster Vaccines Completed 08/29/2020, 04/12, 09/15/2011 Pneumococcal Vaccine: 50+ Years Completed 01/01/2022, 12/03/2015, 05/03/2007 HIB Vaccines Aged Out No longer eligi ble based on patient's age to complete this topic HPV Vaccines Aged Out No longer eligi ble based on patient's age to complete this topic Hepatitis A Vaccines Aged Out No long er eligible based on patient's age to complete this topic Hepatitis B Vaccines Aged Out No long er eligible based on patient's age to complete this topic IPV Vaccines Aged Out No longer eligi ble based on patient's age to complete this topic MMR Vaccines Aged Out No longer eligi ble based on patient's age to complete this topic Meningococcal ACWY Vaccine Aged Out N o longer eligible based on patient's age to complete this topic Meningococcal B Vaccine Aged Out No l onger eligible based on patient's age to complete this topic RSV Immunization Patients Under 20 months Aged Out No longer eligible based on patient's age to complete this topic Varicella Vaccines Aged Out No longer eligible based on patient's age to complete this topic Procedures Procedure Name Priority Date/Time Associated Diagnosis Comments SCREENING MAMMOGRAPHY BI 2-VIEW BREAST INC CAD Routine 01/04/2024 9:03 AM EDT Encounter for screening mammogram for malignant neoplasm of breast COLONOSCOPY Routine 10/06/2023 DXA BONE DENSITY STUDY 1+ SITS AXIAL SKEL Routine 03/08/2023 10:20 AM EST Encounter for general adult medical examination without abnormal findings LIPID PANEL Routine 12/21/2022 HEPATITIS C SCREENING Routine 08/23/2012 from Last 3 Months or Most Recently Relevant to Health Maintenance Results * SCREENING MAMMOGRAPHY BI 2-VIEW BREAST INC CAD (01/04/2024 9:03 AM EDT) Anatomical Region Laterality Modality Radiographic Marlene ging 12/28/2022 1:06 PM EDT Narrative 01/04/2024 1:48 PM EDT This is a summary report. The complete report is available in the patient's medical record. If you cannot access the medical record, please contact the sending organization for a detailed fax or copy. Full field digital screening tomosynthesis mammography, reviewed with CAD and compared to previous. The breasts are composed of fatty and fibroglandular tissue. ??No suspicious mass, architectural distortion or suspicious calcifications are identified. IMPRESSION: : No mammographic evidence of malignancy. BIRADS 1-Negative; N. Breast density: The breasts have scattered areas of fibroglandular density. 5 year breast cancer risk assessment 2.0 % Lifetime breast cancer risk assessment 4.8 % Breast cancer risk category Low (<15%) Location: [facility], [address] [place] [address], [phone], [phone] Procedure Note Maritza Gamez MD - 01/26/2024 This is a summary report. The complete report is available in thepatient's medical record. If you cannot access the medical record, pleasecontact the sending organization for a detailed fax or copy. Full field digital screening tomosynthesis mammography, reviewed with CADand compared to previous. The breasts are composed of fatty andfibroglandular tissue. No suspicious mass, architectural distortion orsuspicious calcifications are identified. IMPRESSION: : No mammographic evidence of malignancy. BIRADS 1-Negative; N. Breast density: The breasts have scattered areas of fibroglandulardensity. 5 year breast cancer risk assessment 2.0 % Lifetime breast cancer risk assessment 4.8 % Breast cancer risk category Low (<15%) Location: [facility], [address] [place] [address], [phone], [phone] Huma Feliciano MD IMG XR PROCEDURES Final Result * Colonoscopy (10/06/2023) Colonoscopy no interpretation , abstracted Anatomical Region Laterality Modality Other Historical Provider HEALTH MAINTENANCE Final Result * DXA BONE DENSITY STUDY 1+ SITS AXIAL SKEL (03/08/2023 10:20 AM EST) Anatomical Region Laterality Modality Bone Densitometr y 12/28/2022 7:58 AM EDT Narrative 03/08/2023 7:09 PM EST BONE DENSITY SCAN (DEXA): FINDINGS: Lumbar Spine L1-L3, L4 excluded T-score is -2.2. ?? (SD relative to 20-29 y/o adult) Z-score is 0.0. ??(SD relative to age matched peers) This is considered osteopenia by WHO criteria. Left Hip T-score is -1.1. Z-score is 0.8. This is considered osteopenia by WHO criteria. Comparison exam(s): 11/26/2020. ??11.2% loss of lumbar spine bone mineral density which is statistically significant at the 95% confidence level. ??No statistically significant change in left hip bone mineral density. Lateral survey view of the thoracolumbar spine shows no significant compression deformities of the visualized vertebral elements. IMPRESSION: IMPRESSION: Osteopenia by WHO criteria. This patient has a 28% risk of major osteoporotic fracture and a 9.3% risk of hip fracture over the next 10 years. (World Health Organization Fracture Risk Assessment) [facility] Department of Internal Medicine recommends using National Osteoporosis Foundation (NOF) guidelines in treatment decisions related to osteoporosis. NOF guidelines suggest considering treatment for postmenopausal women and men aged 50 or older presenting with the following: History of hip or vertebral fracture. T-score = -2.5 (DXA) at the femoral neck, total hip, or spine, after appropriate evaluation to exclude secondary causes. Low bone mass (T-score between -1.0 and -2.5 at the femoral neck or spine) AND a 10-year probability of a hip fracture = 3% OR a 10-year probability of a major osteoporosis-related fracture = 20% based on the [place]-adapted WHO algorithm Please note that all treatment decisions require clinical judgment and consideration of individual patient factors, including patient preferences, co-morbidities, previous drug use, risk factors not captured in the FRAX model (e.g., frailty, falls, vitamin D deficiency, increased bone turnover, interval significant decline in bone density) and possible under- or over-estimation of fracture risk by FRAX. Optional alternative screening schedule based on nate Delarosa., [facility] April 30, 2011 for patients with osteopenia (based on hip BMD T-score) is as follows: * ??advanced osteopenia (T scores -2.00 to -2.49), BMD testing every year * ??moderate osteopenia (T scores -1.50 to -1.99), BMD testing every 5 years mild osteopenia or normal BMD (T scores -1.50 and higher), BMD testing every 15 years Procedure Note Mindy Alva MD - 05/18/2023 BONE DENSITY SCAN (DEXA): FINDINGS: Lumbar Spine L1-L3, L4 excluded T-score is -2.2. (SD relative to 20-29 y/o adult) Z-score is 0.0. (SD relative to age matched peers) This is considered osteopenia by WHO criteria. Left Hip T-score is -1.1. Z-score is 0.8. This is considered osteopenia by WHO criteria. Comparison exam(s): 11/26/2020. 11.2% loss of lumbar spine bone mineraldensity which is statistically significant at the 95% confidence level. No statisticallysignificant change in left hip bone mineral density. Lateral survey view of the thoracolumbar spine shows no significantcompression deformities of the visualized vertebral elements. IMPRESSION: IMPRESSION: Osteopenia by WHO criteria. This patient has a 28% risk of majorosteoporotic fracture and a 9.3% risk of hip fracture over the next 10 years. (World HealthOrganization Fracture Risk Assessment) [facility] Department of Internal Medicine recommendsusing National Osteoporosis Foundation (NOF) guidelines in treatment decisions related toosteoporosis. NOF guidelines suggest considering treatment for postmenopausal women and menaged 50 or older presenting with the following: History of hip or vertebral fracture. T-score = -2.5 (DXA) at the femoral neck, total hip, or spine, afterappropriate evaluation to exclude secondary causes. Low bone mass (T-score between -1.0 and -2.5 at the femoral neck or spine)AND a 10-year probability of a hip fracture = 3% OR a 10-year probability of a majorosteoporosis-related fracture = 20% based on the [place]-adapted WHO algorithm Please note that all treatment decisions require clinical judgment andconsideration of individual patient factors, including patient preferences, co- morbidities,previous drug use, risk factors not captured in the FRAX model (e.g., frailty, falls, vitaminD deficiency, increased bone turnover, interval significant decline in bone density) andpossible under- or over-estimation of fracture risk by FRAX. Optional alternative screening schedule based on nate Delarosa., NEJMJanuary 2011 for patients with osteopenia (based on hip BMD T-score) is as follows: * advanced osteopenia (T scores -2.00 to -2.49), BMD testing every year * moderate osteopenia (T scores -1.50 to -1.99), BMD testing every 5years mild osteopenia or normal BMD (T scores -1.50 and higher), BMD testingevery 15 years Huma Feliciano MD IMG DXA PROCEDURES Final Result * (ABNORMAL) Lipid panel (12/21/2022) [facility] LDL/HDL Ratio 3 0 - 4 Triglycerides 58 0 - 150 mg/dL Cholesterol 210(A) 0 - 200 mg/dL HDL 76 >=40 mg/dL LDL Cholesterol 123(A) 0 - 100 mg/dL Blood Venous blood specimen / Unknown Historical Provider LAB BLOOD ORDERABLES Consuelo l Result * Hepatitis C Screening (08/23/2012) [facility] Hepatitis C Screening abstracted Historical Provider HEALTH MAINTENANCE Final Result from Last 3 Months or Most Recently Relevant to Health Maintenance Insurance [employer] MEDICARE Advance Directives Documents on File Type Date Recorded Patient Typist Expl anation Advance Directives and Living Will 03/02/2024 3:34 PM health care proxy Care Teams Textile Engraver Relationship Specialty Start Date End Date Huma Feliciano MD [address] [place] [phone] PCP - General Internal Medicine 12/09/21
--- OUTSIDE RECORDS SUMMARY | 2024-08-21 15:24 | XMS_ITS | Encounter Summary ---
Author Organization [facility] Address [address] [place] [address] Care Team Providers Care Warehouse Inventory Clerk Name Role Phone Janie Sidhu MD Primary Care Provider Clement Mcgill MD Primary Care Provider Clement Encinas MD Primary Care Provider Huma Segura MD Primary Care Prov ider Bridger Verduzco MD Unavailable Unavaila ble Encounter Details Date Type Department Care Team Description 09/21/2011 Release of Information Medical Records [address] [place] [id number] Abstract, Provider Social History Tobacco Use Types Packs/Day Years [...] on filedocumented in this encounter Care Teams Warehouse Inventory Clerk Relationship Specialty Start Date End Date Janie Sidhu MD PCP - General 09/13/01 02/23/21 Clement Rodney MD PCP - General Internal Medicine 02/24/21 09/10/21 Clement Rodney MD PCP - General Internal Medicine 09/11/21 12/08/21 Huma Holden MD [address] [place] [address] [phone] PCP - General Internal Medicine 12/09/21 Bridger Verduzco MD [address] [place] [address] Specialist Rheumatology 03/16/23 documented as of this encounter
--- OUTSIDE RECORDS SUMMARY | 2024-08-21 15:24 | XMS_ITS | Encounter Summary ---
Author Organization [employer] [facility] Address [address] [place] [address] Care Team Providers Care Ball Machine Operator Name Role Phone Huma Holden MD Primary Care Prov ider Bridger Verduzco MD Unavailable Unavaila ble Encounter Details Date Type Department Care Team Description 11/30/2022 Backup Engineer Report Medical Records [address] [place] [phone] Bridger Verduzco MD Social History Tobacco Use [...] on filedocumented in this encounter Care Teams Ball Machine Operator Relationship Specialty Start Date End Date Huma Holden MD [address] [place] [phone] PCP - General Internal Medicine 12/09/21 Bridger Verduzco MD [address] [place] [phone] Specialist Rheumatology 03/16/23 documented as of this encounter
--- OUTSIDE RECORDS SUMMARY | 2024-08-21 15:24 | XMS_ITS | Encounter Summary ---
Author Organization [facility] Address [address] [place] [address] Care Team Providers Care It Support Analyst Name Role Phone Janie Sidhu MD Primary Care Provider Clement Mcgill MD Primary Care Provider Clement Encinas MD Primary Care Provider Huma Segura MD Primary Care Prov ider Bridger Verduzco MD Unavailable Unavaila ble Encounter Details Date Type Department Care Team Description 07/03/2011 [facility] Medical Records [address] [place] [id number] Abstract, Provider Social History Tobacco Use Types [...] on filedocumented in this encounter Care Teams It Support Analyst Relationship Specialty Start Date End Date Janie Sidhu MD PCP - General 09/13/01 02/23/21 Clement Rodney MD PCP - General Internal Medicine 02/24/21 09/10/21 Clement Rodney MD PCP - General Internal Medicine 09/11/21 12/08/21 Huma Holden MD [address] [place] [phone] PCP - General Internal Medicine 12/09/21 Bridger Verduzco MD [address] [place] [address] Specialist Rheumatology 03/16/23 documented as of this encounter
--- OUTSIDE RECORDS SUMMARY | 2024-08-21 15:24 | XMS_ITS | Encounter Summary ---
Author Organization [facility] Address [address] [place] [address] Care Team Providers Care Hearing Aid Dispenser Name Role Phone Janie Sidhu MD Primary Care Provider Clement Mcgill MD Primary Care Provider Clement Encinas MD Primary Care Provider Huma Segura MD Primary Care Prov ider Bridger Verduzco MD Unavailable Unavaila ble Encounter Details Date Type Department Care Team Description 06/16/2013 Hospital Medical Records [address] [place] [id number] Marguerite Yañez Social History Tobacco Use Types Packs/Day Years [...] on filedocumented in this encounter Care Teams Hearing Aid Dispenser Relationship Specialty Start Date End Date Janie Sidhu MD PCP - General 09/13/01 02/23/21 Clement Rodney MD PCP - General Internal Medicine 02/24/21 09/10/21 Clement Rodney MD PCP - General Internal Medicine 09/11/21 12/08/21 Huma Holden MD [address] [place] [address] [phone] PCP - General Internal Medicine 12/09/21 Bridger Verduzco MD [address] [place] [address] Specialist Rheumatology 03/16/23 documented as of this encounter
--- OUTSIDE RECORDS SUMMARY | 2024-08-21 15:24 | XMS_ITS | Encounter Summary ---
Author Organization [facility] Address [address] [place] [address] Care Team Providers Care Quality Control Inspector Name Role Phone Huma Holden MD Primary Care Prov ider Bridger Verduzco MD Unavailable Unavaila ble Encounter Details Date Type Department Care Team Description 09/14/2022 Boat Person Report Medical Records [address] [place] [phone] Huma Holden MD [address] [place] [phone] Social History Tobacco Use Types Packs/Day Years [...] on filedocumented in this encounter Care Teams Quality Control Inspector Relationship Specialty Start Date End Date Huma Holden MD [address] [place] [address] [phone] PCP - General Internal Medicine 12/09/21 Bridger Verduzco MD [address] [place], [place] [phone] Specialist Rheumatology 03/16/23 documented as of this encounter
--- OUTSIDE RECORDS SUMMARY | 2024-08-21 15:24 | XMS_ITS | Encounter Summary ---
Author Organization [facility] Address [address] [place] [address] Care Team Providers Care Chiropractic Assistant Name Role Phone Huma Holden MD Primary Care Prov ider Bridger Verduzco MD Unavailable Unavaila ble Encounter Details Date Type Department Care Team Description 12/08/2022 Orders Only Adult Medicine [facility] [address] [place] [phone] Huma Holden MD [address] [place] [address] [phone] Preoperative examination; Screening for deficiency anemia Social History Tobacco Use Types Packs/Day Years [...] as of this encounter Plan of Treatment Scheduled Orders Name Type Priority Associated Diagnoses Orde r Schedule CHG BASIC METABOLIC PANEL CALCIUM TOTAL Lab Routine Preoperative examination Expected: 12/08/2022 (Approximate), Expires: 12/08/2023 documented as of this encounter Results * (ABNORMAL) CHG BLOOD COUNT COMPLETE AUTO&AUTO DIFRNTL WBC (12/21/2022 11:27 AM EDT) WHITE BLOOD COUNT 4.2(L) 4.8 - 10.8 x10-3/uL 12/21/2022 2:50 PM EDT [facility] RED BLOOD COUNT 3.8 3.8 - 4.8 x10-6/uL 12/21/2022 2:50 PM EDT [facility] Hemoglobin 12.2 11.5 - 16.0 g/dL 12/21/2022 2:50 PM EDT [facility] Hematocrit 37.5 35 - 47 % 12/21/2022 2:50 PM EDT [facility] MEAN CORPUSCULAR VOLUME 99.2(H) 79 - 98 fL 12/21/2022 2:50 PM EDT [facility] MEAN CORPUSCULAR HEMOGLOBIN 32.3(H) 27 - 32 pg 12/21/2022 2:50 PM EDT [facility] MEAN CORPUSCULAR HGB CONC 32.5 32 - 37 g/dL 12/21/2022 2:50 PM EDT [facility] RED CELL DISTRIBUTION WIDTH 15.0 11 - 15 % 12/21/2022 2:50 PM EDT [facility] PLT COUNT 238 130 - 400 x10-3/uL 12/21/2022 2:50 PM EDT [facility] [employer] MEAN PLATELET VOLUME 11.3(H) 7 - 11 fL 12/21/2022 2:50 PM EDT [facility] NRBC % AUTO 0.0 <1 % 12/21/2022 2:50 PM EDT [facility] NEUTROPHILS % 52.4 % 12/21/2022 2:50 PM EDT [facility] LYMPH % 32.4 % 12/21/2022 2:50 PM EDT [facility] MONO % 11.9 % 12/21/2022 2:50 PM EDT [facility] EOS % 1.9 % 12/21/2022 2:50 PM EDT [facility] BASO % 1.2 % 12/21/2022 2:50 PM EDT [facility] IMMATURE GRANULOCYTES % 0.2 % 12/21/2022 2:50 PM EDT [facility] NRBC # AUTO 0.00 <0.1 x10-3/uL 12/21/2022 2:50 PM EDT [facility] NEUT # 2.20 1.5 - 7.0 x10-3/uL 12/21/2022 2:50 PM EDT [facility] LYMPH # 1.36 1 - 5.0 x10-3/uL 12/21/2022 2:50 PM EDT [facility] MONO # 0.50 0.2 - 1.0 x10-3/uL 12/21/2022 2:50 PM EDT [facility] EOS # 0.08 0 - 0.5 x10-3/uL 12/21/2022 2:50 PM EDT [facility] BASO # 0.05 0 - 0.2 x10-3/uL 12/21/2022 2:50 PM EDT [facility] IMMATURE GRANULOCYTES # 0.01 0 - 0.03 x10-3/uL 12/21/2022 2:50 PM EDT [facility] 12/21/2022 11:2 7 AM EDT 12/21/2022 11:27 AM EDT Narrative [facility] - 12/21/2022 2:50 PM EDT Release to patient->Immediate Huma Yancey MD LAB [facility] documented in this encounter Visit Diagnoses Diagnosis Preoperative examination Preoperative examination, unspecified Screening for deficiency anemia Screening for other and unspecified deficiency anemia Preoperative examination Preoperative examination, unspecified Screening for deficiency anemia Screening for other and unspecified deficiency anemia Seropositive rheumatoid arthritis (HCC) Rheumatoid arthritis documented in this encounter Care Teams Chiropractic Assistant Relationship Specialty Start Date End Date Huma Holden MD [address] [place] [phone] PCP - General Internal Medicine 12/09/21 Bridger Verduzco MD [address] [place] [phone] Specialist Rheumatology 03/16/23 documented as of this encounter
--- OUTSIDE RECORDS SUMMARY | 2024-08-21 15:24 | XMS_ITS | Encounter Summary ---
Author Organization [facility] Address [address] [place] [address] Care Team Providers Care Home Care Attendant Name Role Phone Hmua Holden MD Primary Care Prov ider Bridger Verduzco MD Unavailable Unavaila ble Reason for Visit * Reason Onset Date Comments Medication 09/27/2023 Encounter Details Date Type Department Care Team Description 09/27/2023 Refill Gastroenterology - [place] [address] [facility] [address] [place] [address] Lance Harley DO [address] [facility] [address] [facility] [place] [address] Medication Social History Tobacco Use Types Packs/Day Years [...] on filedocumented in this encounter Care Teams Home Care Attendant Relationship Specialty Start Date End Date Huma Holden MD [address] [place] [address] [phone] PCP - General Internal Medicine 12/09/21 Bridger Verduzco MD [address] [place] [address] Specialist Rheumatology 03/16/23 documented as of this encounter
--- OUTSIDE RECORDS SUMMARY | 2024-08-21 15:24 | XMS_ITS | Encounter Summary ---
Author Organization [facility] Address [address] [place] [address] Care Team Providers Care Tenant Selector Name Role Phone Clement Rodney MD Primary Care Provider Clement Encinas MD Primary Care Provider Huma Segura MD Primary Care Prov ider Bridger Verduzco MD Unavailable Unavaila ble Encounter Details Date Type Department Care Team Description 03/17/2021 Orders Only Adult Medicine B - [place] [address] [place] [address] Bridger Verduzco MD Osteopenia, unspecified location; Seropositive rheumatoid arthritis (HCC); Hip pain, chronic, left Social History Tobacco Use Types Packs/Day Years [...] Procedure Name Priority Date/Time Associated Diagnosis Comments MRI OF LEG JOINT / LOWER EXTREMITY JOINT NO CONTRAST Routine 03/13/2021 Osteopenia, unspecified location Seropositive rheumatoid arthritis (HCC) Hip pain, chronic, left documented in this encounter Results * MRI OF LEG JOINT / LOWER EXTREMITY JOINT NO CONTRAST (03/13/2021) Bridger Verduzco MD MRI [facility] [address] [facility] documented in this encounter Visit Diagnoses Diagnosis Osteopenia, unspecified location Seropositive rheumatoid arthritis (HCC) Rheumatoid arthritis Hip pain, chronic, left documented in this encounter Care Teams Tenant Selector Relationship Specialty Start Date End Date Clement Rodney MD PCP - General Internal Medicine 02/24/21 09/10/21 Clement Rodney MD PCP - General Internal Medicine 09/11/21 12/08/21 Huma Holden MD [address] [place] [phone] PCP - General Internal Medicine 12/09/21 Bridger Verduzco MD [address] [place] [phone] Specialist Rheumatology 03/16/23 documented as of this encounter
--- OUTSIDE RECORDS SUMMARY | 2024-08-21 15:24 | XMS_ITS | Clinical Summary ---
Author Organization [facility] Address [address] [place] [address] Care Team Providers Care Cable Braider Name Role Phone Huma Holden MD Primary Care Prov ider Bridger Verduzco MD Unavailable Unavaila ble Allergies Active Allergy Reactions Severity Noted Date Comments Fluvirin OTHER 01/07/2012 Throat closure Sulfacetamide Sodium Hives/Urticaria 01/12/2005 Daptacel OTHER 01/07/2012 Throat closure Zoledronic Acid Myalgia and Joint Pain High 09/22/19 18 Medications Medication Sig Dispensed Refills Start Date End Date Status naproxen sodium (ANAPROX) 220 MG tabletIndications:Se ropositive rheumatoid arthritis (HCC) Take 1-2 Tabs by mouth 2 times daily (with meals). 60 Tab 4 09/12/2018 Active folic acid (FOLVITE) 1 MG tabletIndications:Se ropositive rheumatoid arthritis (HCC) TAKE 1 TABLET DAILY 90 tablet 3 09/05/2020 Active Humira Pen 40 MG/0.4ML Pen-injector Kit 0 11/16/2022 Active CALCIUM-VITAMIN D OR Take by mouth. 0 Active Cyanocobalamin (B-12) 1000 MCG Cap Take by mouth. 0 A ctive Methotrexate 2.5 MG/ML Solution Take by mouth. Take 8 tabs a week 0 Active bisacodyl (DULCOLAX) 5 MG EC tablet Take 2 tablets by mouth right before your first dose of liquid prep. 2 Tablet 0 09/28/2023 Active polyethylene glycol (GoLYTELY,NuLYTELY) 236 g suspension Take 240 mL by mouth once for 1 dose. Take 4L by mouth once for one dose. May substitue any PEG. Starting at 6PM the night before your procedure drink 1 8oz glasses at your own pace until rectals run clear. 4000 mL 0 09/28/2023 Active Active Problems Problem Noted Date Osteopenia 09/21/2017 Overview: 11/26 DEXA : T score at hip -1.9. T score at LS spine -1.1, FRAX: 43% estimated fracture risk, 4.3% for hip fracture risk Intolerant of alendronate: Heartburn and nausea. Infusion reaction with zoledronic acid: July 2017 Seropositive rheumatoid arthritis 2004 Overview: Onset 1994, seropositive;CCP positive; WALKER positive; some erosive disease 2007 Better in 2783-3000 Plaquenil started Apr 2006; eyes checked 08/18, 07/20, 07/21(Dr. Ayoub). 02/20, 04/25, 05/27, 07/25, 02/27, 05/01, 06/02 Methotrexate added, August 2012 Last Assessment & Plan: increase the methotrexate to 6 tab once a week Lab before next visit Immunizations Name Administration Dates Next Due COVID-19 (Pfizer) Pt Reported 07/18/2020, 021 Influenza (> 6 Months) 01/06/2012 Pneumoccoccal(Adult) Polysaccharide PPSV23 01/01,05/03/2007 Pneumococcal Conjugate PCV-13 12/03/2015 Shingrix (Patient reported) 08/29/2020, TD (STATE SUPPLIED FOR ADULTS AND CHILDREN) 07/1995,01/24/1990 Tdap 01/06/2012 Zostavax 09/15/2011 Family History Medical History Relation Name Comments Asthma Other Father, sister, daughter Joint Problems Other Arthritis Sister 2 RA in two siste rs CA Breast Negative Hx CA Colon Negative Hx CA Ovarian Negative Hx Cancer of the Pancreas Negative Hx Cancer of the Prostate Negative Hx Uterine Cancer Negative Hx Relation Name Status Comments Brother Alive x2, healthy Father (Age 60) CAD age on set 50's, stroke, smoker, asthma Mother Alive healthy, remote [place] Other Sister 1 Alive x2 w RA: Dee Dee(e ldest)Dee Dee Ellington & younger (joyce) Sister 2 Social History Tobacco Use Types Packs/Day Years Used Date Smoking Tobacco: Never Smokeless Tobacco: Never Alcohol Use Standard Drinks/Week Comments No 0.8 (1 standard drink = 0.6 oz p ure alcohol) Sex Assigned at Date Recorded Female 09/17/2020 8:09 AM E DT Job Start Date Occupation Industry Not on file Not on file Not on file Last Filed Vital Signs Vital Sign Reading Time Taken Comments Blood Pressure 124/70 08/24/2023 8:32 AM EDT Pulse 72 08/24/2023 8:32 AM EDT Temperature 35.8 ??C (96.5 ??F) 08/24/2023 8:32 AM ED T Respiratory Rate 14 08/24/2023 8:32 AM EDT Oxygen Saturation 97% 07/24/2015 3:32 PM EDT Inhaled Oxygen Concentration - - Weight 62.6 kg (138 lb) 08/24/2023 8:32 AM EDT Height 160 cm (5' 3 ) 12/29/2022 10:03 AM EDT Body Mass Index 24.45 12/29/2022 10:03 AM EDT Plan of Treatment Health Maintenance Due Date Last Done Comments DTAP/TDAP/TD (2 - Td or Tdap) 01/05/2022, 12/15/1995, 01/24/1990 Covid-19 Vaccine (3 - 2022-2 4 season) 2023 07/18/2020, 06/17/2020 DEPRESSION SCREEN 12/29/2023 12/28/2022 FALL RISK ASSESSMENT 12/29/2023 12/28/2022 INFLUENZA (Season Ended) 2024 01/06/2012 MAMMOGRAM 01/03/2025 01/04/2024, 12/11, 12/22/2021, Additional history exists BONE DENSITY SCREENING 03/08/2025 3, 11/26/2020, 12/01/2016, Additional history exists CHOLESTEROL SCREENING 12/22/2027 12/21/2022 , 08/03/2016, 12/03/2015, Additional history exists COLON CANCER SCREENING 10/05/2028 4, 08/03/2012, 06/17/2004 HEPATITIS C SCREENING Completed 08/23/2012, 008 SHINGLES VACCINE Completed 08/29/2020, , 09/15/2011 PNEUMOCOCCAL VACCINE Completed 01/01/2022, 12/03/2015, 05/03/2007 Care Teams Cable Braider Relationship Specialty Start Date End Date Huma Holden MD [address] [place] [phone] PCP - General Internal Medicine 12/09/21 Bridger Verduzco MD [address] [place] [phone] Specialist Rheumatology 03/16/23
--- OUTSIDE RECORDS SUMMARY | 2024-08-21 15:25 | XMS_ITS | Encounter Summary ---
Author Organization [facility] Address [address] [place] [address] Care Team Providers Care Quarter Doper Name Role Phone Clement Rodney MD Primary Care Provider Clement Encinas MD Primary Care Provider Huma Segura MD Primary Care Prov ider Bridger Verduzco MD Unavailable Unavaila ble Reason for Referral * Non DESMOND (Routine) - Closed Specialty Diagnoses / Procedures Referred By Contac t Referred To Contact ORTHOPEDICS / Orthopedic Diagnoses Seropositive rheumatoid arthritis (HCC) Other secondary osteoarthritis of right hip Procedures REFERRAL TO ORTHOPEDICS (IN NETWORK) Bridger Verduzco MD [address] [place] [address] Warner Morales MD [address] [place] [phone] Referral ID Status Reason Start Date Expiration Date Visits Re quested Visits Authorized [id number] Closed 03/17/2021 03/17/2022 1 1 Encounter Details Date Type Department Care Team Description 03/04/2021 Pt. Non Urgent Medical Question Rheumatology - [address] [address] Bridger Verduzco MD Seropositive rheumatoid arthritis (HCC) (Primary Dx); Other secondary osteoarthritis of right hip Social History Tobacco Use Types Packs/Day Years [...] encounter Miscellaneous Notes * Telephone Encounter - Ewa Chavez - 03/04/2021 10:46 AM ESTFrom: Janny Muse To: Moody Verduzco Sent: 03/04/2021 9:30 AM EST Subject: MRI for Hip Pain Good Morning, Thank You for the referral. I am going Mar 13. The pain is getting more intense and the pain relievers you gave me don't really help anymore. If I sit too long when I get up it really hurts. Thanks Again, Janny documented in this encounter Plan of Treatment Not on file documented as of this encounter Visit Diagnoses Diagnosis Seropositive rheumatoid arthritis (HCC)- Primary Rheumatoid arthritis Other secondary osteoarthritis of right hip documented in this encounter Care Teams Quarter Doper Relationship Specialty Start Date End Date Clement Rodney MD PCP - General Internal Medicine 02/24/21 09/10/21 Clement Rodney MD PCP - General Internal Medicine 09/11/21 12/08/21 Shira Yancey, Huma Alicia MD [address] [place] [phone] PCP - General Internal Medicine 12/09/21 Bridger Verduzco MD [address] [place] [phone] Specialist Rheumatology 03/16/23 documented as of this encounter
--- OUTSIDE RECORDS SUMMARY | 2024-08-21 15:25 | XMS_ITS | Encounter Summary ---
Author Organization [facility] Address [address] [place] [address] Care Team Providers Care Seat Installer Name Role Phone Janie Sidhu MD Primary Care Provider Clement Mcgill MD Primary Care Provider Clement Encinas MD Primary Care Provider Huma Segura MD Primary Care Prov ider Bridger Verduzco MD Unavailable Unavaila ble Reason for Visit * Reason Onset Date Comments refill request 02/19/2020 Encounter Details Date Type Department Care Team Description 02/19/2020 Refill Rheumatology - [address] [address] Bridger Verduzco MD refill request Social History Tobacco Use Types Packs/Day Years Used Date Smoking Tobacco: Never Smokeless Tobacco: Never Alcohol Use Standard Drinks/Week Comments No 0.8 (1 standard drink = 0.6 oz p ure alcohol) Sex Assigned at Date Recorded Female 09/17/2020 8:09 AM E DT Job Start Date Occupation Industry Not on file Not on file Not on file COVID-19 Exposure Response Date Recorded In the last month, have you been in contact with someone who was confirmed or suspected to have Coronavirus / COVID-19? Unable to assess 01/30/2020 7:57 AM EDT documented as of this encounter Miscellaneous Notes * Telephone Encounter - Jeanne Leos L.P.N. - 02/19/2020 4:28 PM EST Lab Results Component Value Date ALB 4.7 12/01/2017 SGOT 17 12/29/2019 SGPT 16 12/29/2019 TBILI 0.3 12/01/2017 ALKPHOS 71 12/01/2017 TP 7.3 12/01/2017 Lab Results Component Value Date WBC 4.3 12/29/2019 HGB 11.3 12/29/2019 HCT 35.9 12/29/2019 MCV 100.0 12/29/2019 PLTCT 257 12/29/2019 Last appt 01/30/20 documented in this encounter Plan of Treatment Not on file documented as of this encounter Visit Diagnoses Diagnosis Seropositive rheumatoid arthritis (HCC) Rheumatoid arthritis documented in this encounter Care Teams Seat Installer Relationship Specialty Start Date End Date Janie Sidhu MD PCP - General 09/13/01 02/23/21 Clement Rodney MD PCP - General Internal Medicine 02/24/21 09/10/21 Clement Rodney MD PCP - General Internal Medicine 09/11/21 12/08/21 Huma Holden MD [address] [place] [phone] PCP - General Internal Medicine 12/09/21 Bridger Verduzco MD [address] [place] [phone] Specialist Rheumatology 03/16/23 documented as of this encounter
--- OUTSIDE RECORDS SUMMARY | 2024-08-21 15:25 | XMS_ITS | Encounter Summary ---
Author Organization [facility] Address [address] [place] [address] Care Team Providers Care Slab Depiler Operator Name Role Phone Janie Sidhu MD Primary Care Provider Clement Mcgill MD Primary Care Provider Clement Encinas MD Primary Care Provider Huma Segura MD Primary Care Prov ider Bridger Verduzco MD Unavailable Unavaila ble Encounter Details Date Type Department Care Team Description 11/27/2020 Pt. Non Urgent Medical Question Rheumatology - [address] [address] Bridger Verduzco MD Social History Tobacco Use [...] or suspected to have Coronavirus / COVID-19? No / Unsure 11/26/2020 2:30 PM EDT documented as of this encounter Miscellaneous Notes * Telephone Encounter - Jeanne Leos L.P.N. - 11/27/2020 1:21 PM EDTFrom: Janny Muse To: Moody Verduzco Sent: 11/27/2020 8:50 AM EDT Subject: Cordisone Injection Hi, The shot you gave me in my Hip only gave relief for 2 days. On and off it has been aching. In the last week it is getting more painful and keeping me up at night. I am not sure what your next recommendation is. Kobe, Janny documented in this encounter Plan of Treatment Not on file documented as of this encounter Visit Diagnoses Not on filedocumented in this encounter Care Teams Slab Depiler Operator Relationship Specialty Start Date End Date Janie Sidhu MD PCP - General 09/13/01 02/23/21 Clement Rodney MD PCP - General Internal Medicine 02/24/21 09/10/21 Clement Rodney MD PCP - General Internal Medicine 09/11/21 12/08/21 Huma Holden MD [address] [place] [phone] PCP - General Internal Medicine 12/09/21 Bridger Verduzco MD [address] [place] [address] Specialist Rheumatology 03/16/23 documented as of this encounter
--- OUTSIDE RECORDS SUMMARY | 2024-08-21 15:25 | XMS_ITS | Encounter Summary ---
Author Organization [facility] Address [address] [place] [address] Care Team Providers Care Commercial Maintenance Technician Name Role Phone Janie Sidhu MD Primary Care Provider Clement Mcgill MD Primary Care Provider Clement Encinas MD Primary Care Provider Huma Segura MD Primary Care Prov ider Bridger Verduzco MD Unavailable Unavaila ble Encounter Details Date Type Department Care Team Description 12/01/2018 Pt. Non Urgent Medical Question Rheumatology - [address] [address] Bridger Verduzco MD Social History Tobacco Use [...] encounter Miscellaneous Notes * Telephone Encounter - Dominique AdamP.N. - 12/05/2018 8:28 AM EDTFrom: Janny A Almaz To: Bridger Verduzco MD Sent: 12/01/2018 1:26 PM EDT Subject: Next Appointment Chandrakant Chew, I couldn't wait I had to get back to work. You can cancel Dec.13 at 4:15. I need an appointment the end of December or beginning of January. WednesdayJan.10 at 4:15 would be good. Let me know. Thanks, Janny documented in this encounter Plan of Treatment Not on file documented as of this encounter Visit Diagnoses Not on filedocumented in this encounter Care Teams Commercial Maintenance Technician Relationship Specialty Start Date End Date Janie Sidhu MD PCP - General 09/13/01 02/23/21 Clement Rodney MD PCP - General Internal Medicine 02/24/21 09/10/21 Clement Rodney MD PCP - General Internal Medicine 09/11/21 12/08/21 Huma Holden MD [address] [place] [address] PCP - General Internal Medicine 12/09/21 Bridger Verduzco MD [address] [place] [address] Specialist Rheumatology 03/16/23 documented as of this encounter
--- OUTSIDE RECORDS SUMMARY | 2024-08-21 15:25 | XMS_ITS | Encounter Summary ---
Author Organization [facility] Address [address] [place] [address] Care Team Providers Care Lockstitch Lining Setter Name Role Phone Jaine Sidhu MD Primary Care Provider Clement Mcgill MD Primary Care Provider Clement Encinas MD Primary Care Provider Huma Segura MD Primary Care Prov ider Bridger Verduzco MD Unavailable Unavaila ble Encounter Details Date Type Department Care Team Description 07/14/2019 Pt. Non Urgent Medical Question Rheumatology - [address] [address] Bridger Verduzco MD Social History Tobacco Use [...] Miscellaneous Notes * Telephone Encounter - Dominique Nowak L.P.N. - 07/14/2019 8:31 AM EDTFrom: Janny Muse To: Bridger Verduzco MD Sent: 07/14/2019 8:26 AM EDT Subject: Blood Work Do I continue to do my blood work or wait until the virus out break is over? Janny Bullock documented in this encounter Plan of Treatment Not on file documented as of this encounter Visit Diagnoses Not on filedocumented in this encounter Care Teams Lockstitch Lining Setter Relationship Specialty Start Date End Date Janie Sidhu MD PCP - General 09/13/01 02/23/21 Clement Rodney MD PCP - General Internal Medicine 02/24/21 09/10/21 Clement Rodney MD PCP - General Internal Medicine 09/11/21 12/08/21 Shira Yancey, Huma Alicia MD [address] [place] [phone] PCP - General Internal Medicine 12/09/21 Bridger Verduzco MD [address] [place] [phone] Specialist Rheumatology 03/16/23 documented as of this encounter
--- OUTSIDE RECORDS SUMMARY | 2024-08-21 15:25 | XMS_ITS | Encounter Summary ---
Author Organization [facility] Address [address] [place] [address] Care Team Providers Care Behavioral Specialist Name Role Phone Janie Sidhu MD Primary Care Provider Clement Mcgill MD Primary Care Provider Clement Encinas MD Primary Care Provider Huma Segura MD Primary Care Prov ider Bridger Verduzco MD Unavailable Unavaila ble Encounter Details Date Type Department Care Team Description 02/20/2014 Grinding And Spraying Supervisor Report Medical Records [address] [place] [id number] Bean Andersen Social History Tobacco Use Types Packs/Day Years [...] on filedocumented in this encounter Care Teams Behavioral Specialist Relationship Specialty Start Date End Date Janie Sidhu MD PCP - General 09/13/01 02/23/21 Clement Rodney MD PCP - General Internal Medicine 02/24/21 09/10/21 Clement Rodney MD PCP - General Internal Medicine 09/11/21 12/08/21 Huma Holden MD [address] [place] [phone] PCP - General Internal Medicine 12/09/21 Bridger Verduzco MD [address] [place] [phone] Specialist Rheumatology 03/16/23 documented as of this encounter
[2024-08-21 15:33] LABS: MANUAL DIFF FLAG NO
[2024-08-21 15:46] LABS: Basophils Percent Auto 0.6 % (0-2); Eosinophils Percent Auto 0.6 % (0-4); Hematocrit 36.2 % (37.0-47.0); Hemoglobin 11.9 g/dl (12.0-16.0); Imm Gran Abs Auto 0.02 X10*3/uL (0.00-0.03); Imm Gran Pct Auto 0.4 % (0.0-0.4); Lymphocytes Absolute Auto 1.7 X10*3/uL (1.2-4.9); Lymphocytes Percent Auto 33.7 % (20-40); Mean Corpuscular HGB Conc 32.9 g/dl (31.0-35.0); Mean Corpuscular Hemoglobin 32.2 pg (27.0-33.0); Mean Corpuscular Volume 97.8 fL (80.0-98.0); Mean Platelet Volume 11.1 fL (9.4-12.3); Monocytes Absolute Auto 0.5 X10*3/uL (0.1-1.2); Monocytes Percent Auto 10.1 % (2-11); Neutrophils Absolute Auto 2.8 x10*3/uL (2.0-8.3); Neutrophils Percent Auto 54.6 % (45-73); Platelet Count 189 X10*3/uL (160-400); Red Cell Distribution Width 14.2 % (11.0-16.0); White Blood Count 5.1 X10*3/uL (4.8-10.8)
[2024-08-21 16:17] LABS: Alanine Aminotransferase 17 U/L (0-31); Albumin Level 4.3 g/dL (3.5-5.0); Anion Gap 11 (12-20); Aspartate Amino Transferase 28 U/L (5-31); Bilirubin Total 1.1 mg/dL (0.0-1.0); Blood Urea Nitrogen 15 mg/dL (9-16); C Reactive Protein < 0.10 mg/dL (< or = 0.50); Calcium 9.4 mg/dL (8.4-10.2); Carbon Dioxide 30 mmol/L (22-29); Chloride 104 mmol/L (96-108); Estimated Glomerular Filt Rate > 60; Glucose Random 108 mg/dL (60-115); Potassium 3.6 mmol/L (3.3-5.1); Sodium 141 mmol/L (135-145); Total Protein 6.9 g/dL (6.5-8.0)
[2024-08-21 16:45] LABS: Alkaline Phosphatase 67 U/L (39-117)
[2024-08-21 17:12] LABS: Erythrocyte Sedimentation Rate 14 MM/HR (0-20)
== END 2024-08-21 15:22 | disposition home or self-care (01) ==
LOC: HO.LAB 15:21
PROVIDERS: PCP Internal Medicine; Visit Provider Student in an Organized Health Care Education/Training Program
DX: M05.9 Rheumatoid arthritis with rheumatoid factor, unspecified (principal)
CPT/HCPCS: 36415; 80053; 85025; 85652; 86140

== ENCOUNTER 2024-12-13 10:26 | Outpatient (REF) | payer MEDICARE, SELFPAY ==
[2024-12-13 10:46] LABS: MANUAL DIFF FLAG NO
[2024-12-13 10:56] LABS: Hematocrit 35.4 % (37.0-47.0); Hemoglobin 12.1 g/dl (12.0-16.0); Imm Gran Abs Auto 0.01 X10*3/uL (0.00-0.03); Imm Gran Pct Auto 0.2 % (0.0-0.4); Lymphocytes Absolute Auto 1.4 X10*3/uL (1.2-4.9); Mean Corpuscular HGB Conc 34.2 g/dl (31.0-35.0); Mean Corpuscular Hemoglobin 33.5 pg (27.0-33.0); Mean Corpuscular Volume 98.1 fL (80.0-98.0); NRBC Abs Auto 0.000 X10*3/uL (0.0-0.012); NRBC Pct Auto 0.0 /100WBC (0.0-0.2); Platelet Count 221 X10*3/uL (160-400); Red Blood Count 3.61 X10*6/uL (4.20-5.50); White Blood Count 4.6 X10*3/uL (4.8-10.8)
[2024-12-13 11:28] LABS: Alanine Aminotransferase 14 U/L (0-31); Albumin Level 4.6 g/dL (3.5-5.0); Alkaline Phosphatase 75 U/L (39-117); Anion Gap 12 (12-20); Aspartate Amino Transferase 27 U/L (5-31); Blood Urea Nitrogen 18 mg/dL (9-16); Calcium 9.6 mg/dL (8.4-10.2); Carbon Dioxide 28 mmol/L (22-29); Chloride 107 mmol/L (96-108); Estimated Glomerular Filt Rate > 60; Potassium 4.9 mmol/L (3.3-5.1); Sodium 142 mmol/L (135-145); Total Protein 7.1 g/dL (6.5-8.0)
--- OUTSIDE RECORDS SUMMARY | 2024-12-13 12:14 | XMS_ITS | Clinical Summary ---
Author Organization [facility] Address [address] [place] [address] Care Team Providers Care Domain Architect Name Role Phone Pcp, No Primary Care Provider Unavailabl e Medications No known medications Active Problems No known active problems Encounters Date Type Department Care Team Description 09/19/2024 2:15 PM EDT Consult [facility] [place] [address] Yesika Guzman APRN Bilateral foot pain (Primary Dx); Bilateral ankle pain, unspecified chronicity 09/19/2024 2:00 PM EDT [place]illary [place] [address] from Last 3 Months Social History Tobacco Use Types Packs/Day Years Used Date Smoking Tobacco: Never Assessed Comments Unknown Sex and Gender Information Value Date Recorded Sex Assigned at Female 09/11/2024 12:09 PM EDT Legal Sex Female 12:05 PM EDT Gender Identity Female 09/11/2024 12:09 PM EDT Sexual Orientation Heterosexual (straight) 09/11 12:09 PM EDT Plan of Treatment Health Maintenance Due Date Last Done Comments Advance Care Planning 1950 Hepatitis C Virus Screening 1950 DTaP/Tdap/Td Vaccines (1 - Tdap) 1969 Mammogram 1990 Colonoscopy 10/23/1995 Pneumococcal Vaccines 50+ (1 of 1 - PCV) 2000 Zoster (Shingles) Vaccine (1 of 2) 2000 DXA Bone Density (Females,Ag es 65 and older) 10/23/2015 COVID-19 Vaccine (2023-2 5 season) 2023 Influenza Vaccine 11/10/2024 RSV Vaccine 60 years and old er and Patients (1 - 1-dose 75+ series) 2025 Hepatitis B Vaccines Aged Out No long er eligible based on patient's age to complete this topic Procedures Procedure Name Priority Date/Time Associated Diagnosis Comments XR FOOT 3+ VIEWS-BILATERAL Routine 09/19/2024 2:01 PM EDT Bilateral foot pain Bilateral ankle pain, unspecified chronicity XR ANKLE 2 VIEWS-BILATERAL Routine 09/19/2024 2:01 PM EDT Bilateral foot pain Bilateral ankle pain, unspecified chronicity from Last 3 Months Results * XR Foot 3+ views-Bilateral (09/19/2024 2:01 PM EDT) Narrative [facility] - 09/19/2024 2:01 PM EDT This exam was performed in office at [facility] and images reviewed by orthopedic provider. Any findings are documented within ambulatory encounter note on date of service. Yesika Guzman APRN [facility] DIAGNOSTIC IMAGING OR DERABLES Final Result Performing Organization Address [facility] de Phone Number [facility] * XR Ankle 2 views-Bilateral (09/19/2024 2:01 PM EDT) Narrative [facility] - 09/19/2024 2:01 PM EDT This exam was performed in office at [facility] and images reviewed by orthopedic provider. Any findings are documented within ambulatory encounter note on date of service. Yesika GARCIA DIAGNOSTIC IMAGING OR DERABLES Final Result Performing Organization Address [facility] de Phone Number [facility] from Last 3 Months Insurance [facility] MEDICARE Care Teams Domain Architect Relationship Specialty Start Date End Date Pcp, No PCP - General General Medicine 09/12/24
--- OUTSIDE RECORDS SUMMARY | 2024-12-13 12:14 | XMS_ITS ---
Author Name [facility] Organization Unknown Encounters Encounter Type Encounter Reason Primary Diagnosis Location Date Ambulatory [employer] 09/19/2024 Ambulatory Pain in right foot Pain in right foot [facility] [employer] 09/19/2024 Care Team Organization Name Specialty Phone Email Start Date End Da te [facility] PCP Food Preparer 09/20/2024 10/18/2024 [facility] NO PCP Primary Care 09/12/2024 [facility] [employer] [facility] [employer] 09/11/2024
--- OUTSIDE RECORDS SUMMARY | 2024-12-13 12:14 | XMS_ITS | Clinical Summary ---
Author Organization [facility] Address [address] [place] [address] Phone Care Team Providers Care Spooler Name Role Phone Huma Holden MD Primary Care Prov ider Allergies Active Allergy Reactions Criticality Noted Date Comments Diph,Pertus(Acel),Tet Ped (Pf) 01/07/2012 Other reaction(s): OTHER Throat closure Fluvirin [id number] Other (See Comments) 012 Throat closure Mannitol High 10/06/2023 Other Reaction(s): leg weakness/nausea/th roat closing Sulfacetamide Sodium Hives 01/12/2005 Water For Injection,Sterile High 10/06/2023 Other Reaction(s): leg weakness/nausea/th roat closing Zoledronic Acid High 09/21/2017 Other reaction(s): Myalgia and Joint Pain Medications cholecalciferol , vitamin D3, 25 mcg (1,000 unit) capsule Take 1,000 Units by mouth daily. 1 Active folic acid (FOLVITE) 1 MG tablet 2 Active hydrOXYchloroQU INE (PLAQUENIL) 200 mg tablet 2 Active meloxicam (MOBIC) 15 MG tabletIndicatio ns:uses PRN Take 15 mg by mouth daily. Indications: uses PRN 2 Active methotrexate 2.5 MG Oral tablet 2 Active cyclobenzaprine (FLEXERIL) 10 MG tablet Take 1 tablet (10 mg total) by mouth 2 (two) times a day as needed. 20 tablet 2 Active Additional Information Patient not taking.Reported on 09/19/2024 CARROLL RODRIGUES, PEN 40 mg/0.4 mL pen kit 3 Active triamcinolone acetonide 0.5 % cream Apply topically 3 (three) times a day. 30 g 3 Active Additional Information Patient not taking.Reported on 09/19/2024 bisacodyl (DULCOLAX) 5 mg EC tablet Take 2 tablets by mouth right before your first dose of liquid prep. 4 Active cyanocobalamin, vitamin B-12, 1,000 mcg Cap Take 1,000 mcg by mouth. Active ibuprofen (ADVIL,MOTRIN) 600 MG tablet Take 600 mg by mouth every 6 (six) hours as needed. 5 Active methotrexate (XATMEP) 2.5 mg/mL oral solution Take 2.5 mg by mouth. Active oxyCODONE 5 MG immediate release tablet Take 5 mg by mouth every 4 (four) hours as needed. 5 Active TYRVAYA 0.03 mg/spray nasal spray 1 spray by Each Nare route 2 (two) times a day. Active Active Problems Problem Noted Date Diagnosed Date Osteopenia 09/21/2017 Overview (09/26/2021): 11/26 DEXA : T score at hip -1.9. T score at LS spine -1.1, FRAX: 43% estimated fracture risk, 4.3% for hip fracture risk Intolerant of alendronate: Heartburn and nausea. 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 Ayoub). 02/20, 04/25, 05/27, 07/25, 02/27, 05/01, 06/02 Methotrexate added, August 2012 Last Assessment & Plan: increase the methotrexate to 6 tab once a week Lab before next visit Encounters Date Type Department Care Team Description 09/19/2024 3:00 PM EDT Office Visit [facility] [address] [address] Irais Espinal, JEN Allergic dermatitis (Primary Dx) from Last 3 Months Immunizations No known immunizations Social History Tobacco Use Types Packs/Day Years Used Date Smoking Tobacco: Never Smokeless Tobacco: Never Tobacco Cessation:Counseling Given: Not Answered Alcohol Use Standard Drinks/Week Comments Not Currently 0 (1 standard drink = 0.6 oz pur e alcohol) Education Answer Date Recorded Are you interested in more education? Not on grant e 08/07/2022 Are you concerned about learning? Not on file 08/07/2022 No 08/07/2022 No 08/07/2022 Digital Access Answer Date Recorded No 09/05/2022 No 09/05/2022 Reliable internet access at home? Not on file 09/05/2022 Device with a working camera? Not on file Comments Unknown Sex and Gender Information Value Date Recorded Sex Assigned at Not on file Legal Sex Female 10:01 PM EDT Gender Identity Not on file Sexual Orientation Not on file Last Filed Vital Signs Vital Sign Reading Time Taken Comments Blood Pressure 155/87 09/19/2024 3:19 PM EDT Pulse 68 09/19/2024 3:17 PM EDT Temperature 36.4 C (97.6 F) 09/19/2024 3:17 PM EDT Respiratory Rate 16 09/19/2024 3:17 PM EDT Oxygen Saturation 100% 09/19/2024 3:17 PM EDT Inhaled Oxygen Concentration - - Weight 60.8 kg (134 lb) 09/19/2024 3:17 PM EDT Height 160 cm (5' 3 ) 09/19/2024 3:17 PM EDT Body Mass Index 23.74 09/19/2024 3:17 PM EDT Plan of Treatment Health Maintenance Due Date Last Done Comments DEPRESSION SCREENING 1962 HEPATITIS C SCREENING 1968 COLOGUARD 10/23/1995 COLONOSCOPY 10/23/1995 COLORECTAL CANCER SCREENING 10/23/1995 FIT TEST 10/23/1995 FOBT 10/23/1995 SIGMOIDOSCOPY 10/23/1995 VIRTUAL COLONOSCOPY 10/23/1995 RSV VACCINE (1 - Risk 60-74 years 1-dose series) 2010 OSTEOPOROSIS SCREENING INITI AL (ONE-TIME) 10/23/2015 COVID-19 VACCINE (3 - Pfizer risk series) 08/15/2020 07/18/2020, 06/27/2020 INFLUENZA VACCINE (#1) 2024 01/06/2012 MAMMOGRAM 01/03/2026 01/04/2024 LIPID PANEL 12/22/2027 12/21/2022 ZOSTER VACCINES Completed 08/29/2020, 04/25/2020, 09/15/2011 PNEUMOCOCCAL VACCINES (50+ years) Completed 01/01/2022, 12/03/2015, 05/03/2007 SMOKING STATUS SCREENING (On ce After 26 Yrs) Completed 09/19/2024 HEPATITIS A VACCINES Aged Out No long er eligible based on patient's age to complete this topic HIB VACCINES Aged Out No longer eligi ble based on patient's age to complete this topic MENINGOCOCCAL VACCINES (ACWY) Aged Out No longer eligible based on patient's age to complete this topic MENINGOCOCCAL VACCINES (B) Aged Out N o longer eligible based on patient's age to complete this topic Medical Devices Not on file Insurance MEDICARE REPLACEMENT [place] [address] MEDICARE REPLACEMENT MEDICARE REPLACEMENT MEDICARE REPLACEMENT MEDICARE REPLACEMENT MEDICARE REPLACEMENT MEDICARE REPLACEMENT MEDICARE REPLACEMENT [place] [id number] [place] [address] MEDICARE REPLACEMENT Care Teams Spooler Relationship Specialty Start Date End Date Huma Holden MD [address] [place] [phone] PCP - General Internal Medicine 09/25/22 Additional Source Comments The information contained in this document represents components of the legal health record. It is not the complete legal health record.[facility]
--- OUTSIDE RECORDS SUMMARY | 2024-12-13 12:14 | XMS_ITS | Clinical Summary ---
Author Organization [address] Address [address] [place] [phone] Phone Care Team Providers Care Coal Pipeline Operator Name Role Phone Huma Feliciano MD Primary Care Prov ider Allergies Active Allergy Reactions Criticality Noted Date Comments Diph,Pertus(Acel),Tet Ped (Pf) Other 01/07/2012 Throat closure Fluvirin [id number] Other 01/07/2012 Throat closure Mannitol High 10/06/2023 [...] acid: July 2017 Seropositive rheumatoid arth ritis ([facility] V24, [facility] V28) 01/12/2005 Overview (01/16/2024): Onset 1994, seropositive;CCP positive; WALKER positive; some erosive disease 2007 Better in [phone] Plaquenil started Apr 2006; eyes checked 08/18, [...] eservative (Fluzone; Afluria) 6mo and older 01/06/2012 [employer] SARS-CoV-2 COVID-19, mRNA, LNP-S, preservative free 07/18/2020,06/17/2020 [...] Right OTHER SURGICAL HISTORY age 40's PROCEDURE: AR EXCISION PREPATELLAR BURSA; COMMENT: Left FLEXIBLE SIGMOIDOSCOPY 06/17/04 PROCEDURE: HISTORICAL FLEXIBLE SIGMOIDOSCOPY COLONOSCOPY 08/03/12 [facility] propofol PROCEDURE: HISTORICAL COLONOSCOPY; COMMENT: tics; repeat [...] positive; some erosive disease 2008 Better in [phone] Plaquenil started Apr 2006 Osteopenia 09/21/2017 DX:Osteopenia [...] stroke, smoker, asthma Mother Alive healthy, remote [facility] Other Sister 1 Sister 2 Alive x2 [...] care for your loved ones. For example, early childhood coordinator or elderly care for an older [...] 83 03/02/2024 3:19 PM EST Temperature 36.6 C (97.8 F) 03/02/2024 3:19 PM EST Respiratory Rate 15 03/02/2024 3:19 PM EST [...] Care Team (Late st Contact Info) Description 01/23/2025 4:10 PM EDT Appointment Radiology Department - [address] [phone] 02/26/2025 8:00 AM EST Office Visit Adult Medicine [address] [phone] Huma Feliciano MD [address] [place] [address] Health Maintenance Due Date Last Done Comments Depression Screening 04/12/2024 02/24/2024 Social Influencers of Health Screening 02/16/2025 02/17/2024 Falls Risk Assessment 02/23/2025 02/24/2024 Medicare Annual [...] are composed of fatty and fibroglandular tissue. No suspicious mass, architectural distortion or suspicious calcifications are identified. IMPRESSION: : No mammographic evidence of malignancy. BIRADS 1-Negative; N. Breast density: The breasts have scattered areas of fibroglandular density. 5 year breast cancer risk assessment 2.0 % Lifetime breast cancer risk assessment 4.8 % Breast cancer risk category Low (<15%) Location: [facility], [address] [place] [address], [phone], [phone] Procedure Note Maritza Gamez MD - 01/26/2024 [...] Breast cancer risk category Low (<15%) Location: [facility], [address] [place] [address], [phone], [phone] Huma Feliciano MD IMG XR PROCEDURES Final Result * Colonoscopy (10/06/2023) Colonoscopy no interpretation , abstracted Anatomical Region Laterality Modality Other Historical Provider HEALTH MAINTENANCE Final Result * DXA BONE DENSITY STUDY 1+ SANDY AXIAL SKEL (03/08/2023 10:20 AM EST) Anatomical [...] 11/26/2020. 11.2% loss of lumbar spine bone mineral density which is statistically significant at the 95% confidence level. No statistically significant change in left hip bone mineral density. Lateral survey view of the thoracolumbar spine shows no significant compression deformities of the visualized vertebral elements. IMPRESSION: IMPRESSION: Osteopenia by WHO criteria. This patient has a 28% risk of major osteoporotic fracture and a 9.3% risk of hip fracture over the next 10 years. (World Health Organization Fracture Risk Assessment) [facility] Department of Internal Medicine recommends using [...] FRAX. Optional alternative screening schedule based on sarah Delarosa al., [facility] April 30, 2011 for patients with osteopenia [...] years. (World HealthOrganization Fracture Risk Assessment) [facility] Department of Internal Medicine recommendsusing National [...] alternative screening schedule based on nate Delarosa., [facility] for patients with osteopenia (based on [...] Final Result * (ABNORMAL) Lipid panel (12/21/2022) [facility] LDL/HDL Ratio 3 0 - 4 Triglycerides 58 0 - 150 mg/dL Cholesterol 210(A) 0 - 200 mg/dL HDL 76 >=40 mg/dL LDL Cholesterol 123(A) 0 - 100 mg/dL Blood Venous blood specimen / Unknown Result [facility] Historical Provider LAB BLOOD ORDERABLES Consuelo l Result * Hepatitis C Screening (08/23/2012) [facility] Hepatitis C Screening abstracted Historical Provider HEALTH MAINTENANCE Final Result from Last 3 Months or Most Recently Relevant to Health Maintenance Insurance [employer] MEDICARE Advance Directives Documents on File Type Date Recorded Patient Chemical Dependency Professional Expl anation Advance Directives and Living Will 03/02/2024 3:34 PM health care proxy Care Teams Coal Pipeline Operator Relationship Specialty Start Date End Date Huma Feliciano MD [address] [place] [phone] PCP - General Internal Medicine 12/09/21
== END 2024-12-13 10:27 | disposition home or self-care (01) ==
LOC: HO.LAB 10:26
PROVIDERS: PCP Internal Medicine; Visit Provider Student in an Organized Health Care Education/Training Program
DX: M05.9 Rheumatoid arthritis with rheumatoid factor, unspecified (principal); M85.80 Other specified disorders of bone density and structure, unspecified site; Z78.0 Asymptomatic menopausal state; Z79.620 Long term (current) use of immunosuppressive biologic; Z79.899 Other long term (current) drug therapy
CPT/HCPCS: 36415; 80053; 85025; 85652; 86140; 99212

== ENCOUNTER 2024-12-13 14:11 | Outpatient (AMB) | payer MEDICARE, SELFPAY ==
[2024-12-13 14:27] VITALS: BP 120/74; PULSE 81; O2SAT 98; BMI 23.8
--- NOTE | 2024-12-13 14:27 | A.OFFVIS_ITS ---
Vital Signs 12/13/24 14:27 Height 5 ft 3 in Weight 134 lb 7.712 oz BMI 23.8 BP 120/74 Blood Pressure Location Lt brachial Position Sitting Pulse 81 Pulse Source Pulse Oximeter Pulse Oximetry (%) 98 Oxygen Delivery Method Room Air Intake Visit Reasons: RA Intake Note: Patient last seen by Doctor Charlene Jeronimo on 09/01/24. Presents today for ASyS follow up and test results. Allergies diphtheria,pertussis (acellular),te (From Boostrix Tdap) Allergy (Severe, Verified 12/13/24 14:32) throat closing influenza virus vaccine tv splt 2012- (4 yr,up) (From Fluvirin) Allergy (Severe, Verified 12/13/24 14:32) throat closing mannitol (From Reclast) Allergy (Severe, Verified 12/13/24 14:32) throat closing water for injection,sterile (From Reclast) Allergy (Severe, Verified 12/13/24 14:32) throat closing zoledronic acid (From Reclast) Allergy (Severe, Verified 12/13/24 14:32) throat closing Sulfa (Sulfonamide Antibiotics) Allergy (Intermediate, Verified 12/13/24 14:32) rash Medication List - Last Reconciled 12/13/24 by Charlene Jeronimo MD cholecalciferol (vitamin D3) 25 mcg PO DAILY folic acid 2 mg (2 x 1 mg) PO DAILY Humira(CF) Pen (adalimumab) 40 mg (0.4 mL) subcut Q2W 30 days NS mecobalamin (vitamin B12) 1,000 mcg PO DAILY meloxicam 15 mg PO DAILY PRN methotrexate sodium 12.5 mg (5 x 2.5 mg) PO QWEEK 90 days sennosides-docusate sodium 8.6-50 mg (Senokot-S) 1 tab-cap PO BEDTIME PRN HPI Comments Details: Patient is a 74-year-old female with seropositive nonerosive rheumatoid arthritis who presents for follow-up Interval History: Last seen 05/02/24 with me - On Mtx 15mg weekly, Humira 40mg SC every 2 weeks - Doing well on the reduced Mtx dose - Complained of her reducible deformity to the 1st CMC of the right hand. It impedes her ability to use machinery. Today - On Mtx 15mg weekly, Humira 40mg SC every 2 weeks - Stopped Humira for foot surgery in October, only on Mtx - Even off the Humira she has noticed that she is doing well and has no complaints - Restarted Humira about 4 weeks ago Rheumatologic History: RA: Diagnosed in her 20s Increased Mtx and Added Humira 2024 - Mtx reduced due to transaminitis. Resolved after reduction Osteoporosis: 11/26 DEXA : T score at hip -1.9. T score at LS spine -1.1, FRAX: 43% estimated fracture risk, 4.3% for hip fracture risk Intolerant of alendronate: Heartburn and nausea. Infusion reaction with zoledronic acid: July 2017 T scores: 11/2020: LS -0.8; hip -1.6 02/2023 LS -2.2; hip - 1.1 Current Rheumatology Medications: Methotrexate 15mg weekly Folic Acid 1mg daily Humira 40mg SC every 2 weeks [facility] Medical History Osteoarthritis of hands, bilateral Long-term use of immunosuppressant medication Osteoarthritis of hips, bilateral Seropositive rheumatoid arthritis Surgical History S/P foot surgery, left H/O oral surgery Family History Sister Rheumatoid arthritis Social History Household Members: Significant Other Housing: House Are you a primary direct care specialist to a significant other at home: No Do you presently have visiting nurse or other home services: No 75 years or older and lives alone: No Alcohol intake: current Alcohol intake frequency: holidays/special occasions only Patient Tobacco Use Status: Never used Tobacco service: No Current occupation: [employer] Review of Systems Const Details: Review of Systems Constitutional: Denies fever, chills, weight loss ENT: Denies vision changes, eye pain or eye redness, dental caries, dry mouth GI: Denies nausea, vomiting, diarrhea, abdominal pain, change in BM Pulm: Denies SOB, PITT, hemoptysis, wheezing Cards: Denies chest pain, palpitations Skin: Denies Raynaud's, rash, nail changes, photosensitivity, MACHINE WOODWORKING SANDER: Denies headaches, weakness, paresthesias, recurrent falls MSK: as per HPI All other systems reviewed and are unremarkable except noted above Physical Exam Exam Exam: Vital signs reviewed Physical Examination CONSTITUITIONAL Patient alert and cooperative. Well appearing and in no apparent painful distress MSK Hands * Right Hand: Able to make a fist. No swelling or tenderness to palpation of the MCPs, PIPs or DIPs. * Left Hand: Able to make a fist. No swelling or tenderness to palpation of the MCPs, PIPs or DIPs. * Herbedens nodes noted bilaterally Wrists * Right Wrist: Full ROM to flexion and extension. No swelling or TTP * Left Wrist: Full ROM to flexion and extension. No swelling or TTP Elbows * Right Elbow: Full ROM. No swelling or TTP. No TTP of the medial epicondyle. No TTP of the lateral epicondyle * Left Elbow: Full ROM. No swelling or TTP. No TTP of the medial epicondyle. No TTP of the lateral epicondyle Shoulders * Right shoulder: Full ROM. No swelling noted. No TTP of the AC joint. No TTP of the subacromial bursa. No TTP of the posterior shoulder * Left shoulder: Full ROM. No swelling noted. No TTP of the AC joint. No TTP of the subacromial bursa. No TTP of the posterior shoulder Knees * Right knee: Full ROM. No swelling noted. No TTP of the knee joint line. No TTP of pes anserine bursa * Left knee: Full ROM. No swelling noted. No TTP of the knee joint line. No TTP of pes anserine bursa. * Crepitations felt bilaterally Ankles * Right ankle: Good ankle dorsiflexion and plantar flexion. No swelling. No TTP of the ankle joint * Left ankle: Good ankle dorsiflexion and plantar flexion. No swelling. No TTP of the ankle joint Feet * Right foot: Negative squeeze test * Left foot: post surgery, positive squeeze test Tender points? * No tenderness to palpation of the bilateral trapezius, supraspinatus, anterior costochondral junctions, bilateral suboccipital muscle insertions SKIN No rashes Vital Signs: Last Vital Signs Pulse 81 12/13/24 14:27 BP 120/74 12/13/24 14:27 Pulse Ox 98 12/13/24 14:27 Oxygen Delivery Method Room Air 12/13/24 14:27 BMI result Body Mass Index 23.8 Results Reviewed Results Reviewed: Laboratory Tests 12/13/24 10:44 WBC 4.6 L RBC 3.61 L Hgb 12.1 Hct 35.4 L Plt Count 221 ESR 13 Sodium 142 Potassium 4.9 D Chloride 107 Carbon Dioxide 28 BUN 18 H Creatinine 0.74 AST 27 ALT 14 C-Reactive Protein < 0.04 Infectious serologies 09/14/22 01/13/24 10:15 16:25 Hepatitis A IgM Ab Nonreactive Hep Bs Antigen Negative Hep Bs Antibody NONREACTIVE Hep B Core Total Ab Nonreactive Hepatitis C Ab (EIA) Nonreactive TB Test (T-Spot) Com Negative XR Hands 09/2022 FINDINGS: RIGHT HAND: There is mild 1st metacarpophalangeal joint subluxation. Mild reduction of PIP and DIP joints with periarticular spurring PIP joint 1st digit and DIP joint 2nd and the 5th digits are noted. There is a mild extra-articular osteopenia No acute fracture or soft tissue swelling seen. There is an old ulnar styloid process fracture noted. LEFT HAND: There is mild loss of PIP and DIP joint spaces all digits without spurring or bony erosive changes. There is mild juxta-articular osteopenia. No acute fracture or dislocation seen. There is mild soft tissue swelling PIP and DIP joints. IMPRESSION: 1. Mild degenerative changes PIP and DIP joints both digits. There is juxta-articular osteopenia more suggestive of early rheumatoid arthritis. 2. No acute fracture or dislocation seen. Assessment & Plan Assessment & Plan (1) Seropositive rheumatoid arthritis: Comment: Onset probably in 1994. Hydroxychloroquine since 2006. Methotrexate added in August 2012. Last eye exam OK 07/2021. Humira added 09/2022 and MTx increased at that time also. hydroxychlororquine stopped 01/2023 Code(s): M05.9 - Rheumatoid arthritis with rheumatoid factor, unspecified Category: Medical Plan: #Seropositive Non erosive RA Patient is a 74 year old with seropositive nonerosive RA currently in remission. CDAI 0 Doing well on the Humira. and methotrexate. Will stop methotrexate and monitor Plan - Stop methotrexate - Humira 40mg SC every other week - RTC 4 months - Labs prior to visit: CBC, CMP, ESR, CRP (2) Osteopenia after menopause: Comment: 11/26 DEXA : T score at hip -1.9. T score at LS spine -1.1, FRAX: 43% estimated fracture risk, 4.3% for hip fracture risk Intolerant of alendronate: Heartburn and nausea. Infusion reaction with zoledronic acid: July 2017 T scores: 11/2020: LS -0.8; hip -1.6 02/2023 LS -2.2; hip - 1.1 Code(s): M85.80 - Other specified disorders of bone density and structure, unspecified site; Z78.0 - Asymptomatic menopausal state Category: Medical Plan: #Osteopenia Patient with osteopenia particularly in the lumbar spine. Discussed calcium and vitamin-D supplementation which she is already doing. Also discussed weight- bearing exercises which she is already doing as well. Plan - Repeat DEXA 02/2025 - Vit D supplementation - Weight bearing exercises (3) Adalimumab long-term use: Code(s): Z79.620 - intermediate teacher (current) use of immunosuppressive biologic Plan: #Long-term Use of TNF Inhibitors: Humira Discussed with the patient the benefits and risks of TNF inhibitors for the management of the rheumatic condition Benefits include reduce pain, maintenance of remission and reduction of flares as well as ?progression of the disease Risks include injection sites/infusion reactions, serious infections (such as bacterial infections, opportunistic infections), malignancy, delaminating syndromes, autoimmune phenomena, CHF exacerbations, palmar plantar psoriasis and cytopenias Recommended rotating injection sites, and holding medication during and for up to 1 week after resolution of a febrile illness or open skin wound Plan I spent 30 minutes reviewing the record and labs, seeing the patient, discussing the treatment plan and documenting in the medical record Medications: Discontinued folic acid Discontinued Reason: Doctor's Order 2 mg (2 x 1 mg) PO DAILY 180 tabs 1RF M05.9 - Rheumatoid arthritis with rheumatoid factor, unspecified methotrexate sodium Discontinued Reason: Doctor's Order 12.5 mg (5 x 2.5 mg) PO QWEEK 90 days 65 tabs 1RF M05.9 - Rheumatoid arthritis with rheumatoid factor, unspecified Coding Level of Care Code Est Pt Level 4 (37309) Complex EM visit Add On G2211 Diagnoses Seropositive rheumatoid arthritis M05.9 Osteopenia after menopause M85.80; Z78.0 Adalimumab long-term use Z79.620
--- OUTSIDE RECORDS SUMMARY | 2024-12-13 16:34 | XMS_ITS | Encounter Summary ---
Author Organization [employer] [facility] Address [address] [place] [address] Care Team Providers Care Cloth Neutralizer Name Role Phone Huma Holden MD Primary Care Prov ider Bridger Verduzco MD Unavailable Unavaila ble Encounter Details Date Type Department Care Team Description 11/30/2022 Clinical Pharmacologist Report Medical Records [address] [place] [id number] Bridger Verduzco MD Social History Tobacco Use [...] on filedocumented in this encounter Care Teams Cloth Neutralizer Relationship Specialty Start Date End Date Huma Holden MD [address] [place] [address] PCP - General Internal Medicine 12/09/21 Bridger Verduzco MD [address] [place], [place] [phone] Specialist Rheumatology 03/16/23 documented as of this encounter
--- OUTSIDE RECORDS SUMMARY | 2024-12-13 16:34 | XMS_ITS | Encounter Summary ---
Author Organization [email or web address] [facility] Address [address] [place] [address] Care Team Providers Care Senior Nurse Manager Name Role Phone Huma Holden MD Primary Care Prov ider Bridger Verduzco MD Unavailable Unavaila ble Encounter Details Date Type Department Care Team Description 04/27/2022 Ore Tester Report Medical Records [address] [place] [id number] Bridger Verduzco MD Social History Tobacco Use [...] on filedocumented in this encounter Care Teams Senior Nurse Manager Relationship Specialty Start Date End Date Huma Holden MD [address] [place] [id number] PCP - General Internal Medicine 12/09/21 Bridger Verduzco MD [address] [place] [address] Specialist Rheumatology 03/16/23 documented as of this encounter
--- OUTSIDE RECORDS SUMMARY | 2024-12-13 16:34 | XMS_ITS | Encounter Summary ---
Author Organization [facility] Address [address] [place] [address] Care Team Providers Care Hot Bread Baker Name Role Phone Janie Sidhu MD Primary Care Provider Clement Mcgill MD Primary Care Provider Clement Encinas MD Primary Care Provider Huma Segura MD Primary Care Prov ider Bridger Verduzco MD Unavailable Unavaila ble Reason for Visit * Reason Onset Date Comments Prior Authorization 11/04/2016 Encounter Details Date Type Department Care Team Description 11/04/2016 Telephone Radiology - [address] [address] Janie Sidhu MD Prior Authorization Social History [...] on filedocumented in this encounter Care Teams Hot Bread Baker Relationship Specialty Start Date End Date Janie Sidhu MD PCP - General 09/13/01 02/23/21 Clement Rodney MD PCP - General Internal Medicine 02/24/21 09/10/21 Clement Rodney MD PCP - General Internal Medicine 09/11/21 12/08/21 Huma Holden MD [address] [place] [address] PCP - General Internal Medicine 12/09/21 Bridger Verduzco MD [address] [place] [phone] Specialist Rheumatology 03/16/23 documented as of this encounter
--- OUTSIDE RECORDS SUMMARY | 2024-12-13 16:34 | XMS_ITS | Encounter Summary ---
Author Organization [facility] Address [address] [place] [address] Care Team Providers Care Legal Administrative Secretary Name Role Phone Clement Rodney MD Primary [...] TO ORTHOPEDICS (IN NETWORK) Bridger Verduzco MD [address] [place] [address] Warner Morales MD [address] [place] [phone] Referral ID Status Reason Start Date Expiration Date Visits Re quested Visits Authorized [id number] Closed 03/17/2021 03/17/2022 1 1 Encounter Details Date Type Department Care Team Description 03/04/2021 Pt. Non Urgent Medical Question Rheumatology - [address] [address] Bridger Verduzco MD Seropositive rheumatoid arthritis (HCC) [...] hip documented in this encounter Care Teams Legal Administrative Secretary Relationship Specialty Start Date End Date Clement Rodney MD PCP - General Internal Medicine 02/24/21 09/10/21 Clement Rodney MD PCP - General Internal Medicine 09/11/21 12/08/21 Shira Yancey, Huma [place] MD [address] [place] [phone] PCP - General Internal Medicine 12/09/21 Bridger Verduzco MD [address] [place] [phone] Specialist Rheumatology 03/16/23 documented as of this encounter
--- OUTSIDE RECORDS SUMMARY | 2024-12-13 16:34 | XMS_ITS | Encounter Summary ---
Author Organization [facility] Address [address] [place] [address] Care Team Providers Care Sales Service Assistant Name Role Phone Janie Sidhu MD Primary Care Provider Clement Mcgill MD Primary Care Provider Clement Encinas MD Primary Care Provider Huma Segura MD Primary Care Prov ider Bridger Verduzco MD Unavailable Unavaila ble Encounter Details Date Type Department Care Team Description 02/13/2016 Chemical Equipment Sales Engineer Report Medical Records [address] [place] [phone] Abhi Clinton Social History Tobacco Use Types Packs/Day Years [...] on filedocumented in this encounter Care Teams Sales Service Assistant Relationship Specialty Start Date End Date Janie Sidhu MD PCP - General 09/13/01 02/23/21 Clement Rodney MD PCP - General Internal Medicine 02/24/21 09/10/21 Clement Rodney MD PCP - General Internal Medicine 09/11/21 12/08/21 Huma Holden MD [address] [place] [address] [phone] PCP - General Internal Medicine 12/09/21 Bridger Verduzco MD [address] [place] [address] Specialist Rheumatology 03/16/23 documented as of this encounter
--- OUTSIDE RECORDS SUMMARY | 2024-12-13 16:34 | XMS_ITS | Encounter Summary ---
Author Organization [facility] Address [address] [place] [address] Care Team Providers Care Engineer Soils Name Role Phone Janie Sidhu MD Primary Care Provider Clement Mcgill MD Primary Care Provider Clement Encinas MD Primary Care Provider Huma Segura MD Primary Care Prov ider Bridger Verduzco MD Unavailable Unavaila ble Encounter Details Date Type Department Care Team Description 09/21/2011 Release of Information Medical Records [address] [place] [id number] Abstract, Provider Social History Tobacco Use Types [...] on filedocumented in this encounter Care Teams Engineer Soils Relationship Specialty Start Date End Date Janie Sidhu MD PCP - General 09/13/01 02/23/21 Clement Rodney MD PCP - General Internal Medicine 02/24/21 09/10/21 Clement Rodney MD PCP - General Internal Medicine 09/11/21 12/08/21 Huma Holden MD [address] [place] [address] [phone] PCP - General Internal Medicine 12/09/21 Bridger Verduzco MD [address] [place] [address] Specialist Rheumatology 03/16/23 documented as of this encounter
--- OUTSIDE RECORDS SUMMARY | 2024-12-13 16:34 | XMS_ITS | Clinical Summary ---
Author Organization [facility] Address [address] [place] [address] Care Team Providers Care Oncology Radiation Physician Name Role Phone Huma Holden MD Primary [...] positive; some erosive disease 2007 Better in [phone] Plaquenil started Apr 2006; eyes checked 08/18, [...] 72 08/24/2023 8:32 AM EDT Temperature 35.8 C (96.5 F) 08/24/2023 8:32 AM EDT Respiratory Rate 14 08/24/2023 8:32 AM EDT [...] - Td or Tdap) 01/05/2022, 12/15/1995, 01/24/1990 DEPRESSION SCREEN 12/29/2023 12/28/2022 FALL RISK ASSESSMENT 12/29/2023 12/28/2022 Covid-19 Vaccine (3 - 2022-2 4 season) 2024 07/18/2020, 06/17/2020 INFLUENZA (#1) 2024 01/06/2012 MAMMOGRAM 01/03/2025 01/04/2024, 12/11, 12/22/2021, Additional history exists BONE DENSITY SCREENING 03/08/2025 3, 11/26/2020, 12/01/2016, Additional history exists CHOLESTEROL SCREENING 12/22/2027 12/21/2022 , 08/03/2016, 12/03/2015, Additional history exists COLON CANCER SCREENING 10/05/2028 4, 08/03/2012, 06/17/2004 HEPATITIS C SCREENING Completed 08/23/2012, 008 SHINGLES VACCINE Completed 08/29/2020, , 09/15/2011 PNEUMOCOCCAL VACCINE Completed 01/01/2022, 12/03/2015, 05/03/2007 Care Teams Oncology Radiation Physician Relationship Specialty Start Date End Date Huma Holden MD [address] [place] [phone] PCP - General Internal Medicine 12/09/21 Bridger Verduzco MD [address] [place] [address] Specialist Rheumatology 03/16/23
--- OUTSIDE RECORDS SUMMARY | 2024-12-13 16:34 | XMS_ITS | Encounter Summary ---
Author Organization [facility] Address [address] [place] [address] Care Team Providers Care Door Repairer Bus Name Role Phone Huma Holden MD Primary Care Prov ider Bridger Verduzco MD Unavailable Unavaila ble Encounter Details Date Type Department Care Team Description 12/08/2022 Orders Only Adult Medicine [facility] [address] [place] [phone] Huma Holden MD [address] [place] [address] [phone] Preoperative examination; Screening for deficiency anemia Social [...] 10.8 x10-3/uL 12/21/2022 2:50 PM EDT [facility] RED BLOOD COUNT 3.8 3.8 - 4.8 x10-6/uL 12/21/2022 2:50 PM EDT [facility] Hemoglobin 12.2 11.5 - 16.0 g/dL 12/21/2022 2:50 PM EDT [facility] Hematocrit 37.5 35 - 47 % 12/21/2022 2:50 PM EDT [facility] MEAN CORPUSCULAR VOLUME 99.2(H) 79 - 98 fL 12/21/2022 2:50 PM EDT [facility] CORPUSCULAR HEMOGLOBIN 32.3(H) 27 - 32 pg 12/21/2022 2:50 PM EDT [facility] HGB CONC 32.5 32 - 37 g/dL 12/21/2022 2:50 PM EDT [facility] RED CELL DISTRIBUTION WIDTH 15.0 11 - 15 % 12/21/2022 2:50 PM EDT [facility] PLT COUNT 238 130 - 400 x10-3/uL 12/21/2022 2:50 PM EDT [facility] [employer] [facility] PLATELET VOLUME 11.3(H) 7 - 11 fL 12/21/2022 2:50 PM EDT [facility] NRBC % AUTO 0.0 <1 % 12/21/2022 2:50 PM EDT [facility] NEUTROPHILS % 52.4 % 12/21/2022 2:50 PM EDT [facility] LYMPH % 32.4 % 12/21/2022 2:50 PM EDT [facility] MONO % 11.9 % 12/21/2022 2:50 PM EDT [facility] EOS % 1.9 % 12/21/2022 2:50 PM EDT [facility] BASO % 1.2 % 12/21/2022 2:50 PM EDT [facility] IMMATURE GRANULOCYTES % 0.2 % 12/21/2022 2:50 PM EDT [facility] NRBC # AUTO 0.00 <0.1 x10-3/uL 12/21/2022 2:50 PM EDT [facility] NEUT # 2.20 1.5 - 7.0 x10-3/uL [...] arthritis documented in this encounter Care Teams Door Repairer Bus Relationship Specialty Start Date End Date Huma Holden MD [address] [place] [phone] PCP - General Internal Medicine 12/09/21 Bridger Verduzco MD [address] [place] [address] Specialist Rheumatology 03/16/23 documented as of this encounter
--- OUTSIDE RECORDS SUMMARY | 2024-12-13 16:34 | XMS_ITS | Encounter Summary ---
Author Organization [facility] Address [address] [place] [address] Care Team Providers Care Stitch Separator Name Role Phone Janie Sidhu MD Primary Care Provider Clement Mcgill MD Primary Care Provider Clement Encinas MD Primary Care Provider Huma Segura MD Primary Care Prov ider Bridger Verduzco MD Unavailable Unavaila ble Encounter Details Date Type Department Care Team Description 07/10/2010 Eye Drawbench Operator Helper Report Medical Records [address] [place] [address] Iesha Qureshi Social History Tobacco Use Types [...] on filedocumented in this encounter Care Teams Stitch Separator Relationship Specialty Start Date End Date Janie Sidhu MD PCP - General 09/13/01 02/23/21 Clement Rodney MD PCP - General Internal Medicine 02/24/21 09/10/21 Clement Rodney MD PCP - General Internal Medicine 09/11/21 12/08/21 Huma Holden MD [address] [place], [place] [phone] PCP - General Internal Medicine 12/09/21 Bridger Verduzco MD [address] [place] [address] Specialist Rheumatology 03/16/23 documented as of this encounter
--- OUTSIDE RECORDS SUMMARY | 2024-12-13 16:34 | XMS_ITS | Encounter Summary ---
Author Organization [facility] Address [address] [place] [address] Care Team Providers Care Commercial Census Taker Name Role Phone Clement Rodney MD Primary Care Provider Clement Encinas MD Primary Care Provider Huma Segura MD Primary Care Prov ider Bridger Verduzco MD Unavailable Unavaila ble Encounter Details Date Type Department Care Team Description 08/11/2021 Hedis Abstractor Report Medical Records [address] [place] [address] Bridger Verduzco MD Social History Tobacco Use [...] filedocumented in this encounter Care Teams Commercial Census Taker Relationship Specialty Start Date End Date Clement Rodney MD PCP - General Internal Medicine 02/24/21 09/10/21 Clement Rodney MD PCP - General Internal Medicine 09/11/21 12/08/21 Huma Holden MD [address] [place], [place] [phone] PCP - General Internal Medicine 12/09/21 Bridger Verduzco MD [address] [place] [phone] Specialist Rheumatology 03/16/23 documented as of this encounter
--- OUTSIDE RECORDS SUMMARY | 2024-12-13 16:34 | XMS_ITS | Encounter Summary ---
Author Organization [facility] Address [address] [place] [address] Care Team Providers Care Bottle Carrier Name Role Phone Huma Holden MD Primary Care Prov ider Bridger Verduzco MD Unavailable Unavaila ble Reason for Visit * Reason Onset Date Comments Medication 09/27/2023 Encounter Details Date Type Department Care Team Description 09/27/2023 Refill Gastroenterology - [place] [address] [facility] [address] [place] [address] Lance Harley DO [address] [facility] [address] [facility] [place] [address] Medication Social History Tobacco Use Types Packs/Day [...] on filedocumented in this encounter Care Teams Bottle Carrier Relationship Specialty Start Date End Date Huma Holden MD [address] [place] [address] [phone] PCP - General Internal Medicine 12/09/21 Bridger Verduzco MD [address] [place] [address] Specialist Rheumatology 03/16/23 documented as of this encounter
--- OUTSIDE RECORDS SUMMARY | 2024-12-13 16:34 | XMS_ITS | Encounter Summary ---
Author Organization [facility] Address [address] [place] [address] Care Team Providers Care Wall Crane Operator Name Role Phone Huma Holden MD Primary Care Prov ider Bridger Verduzco MD Unavailable Unavaila ble Encounter Details Date Type Department Care Team Description 08/20/2023 Helicopter Specialist Report Medical Records [address] [place], [place] [id number] Luda Romero NP Social History Tobacco Use [...] on filedocumented in this encounter Care Teams Wall Crane Operator Relationship Specialty Start Date End Date Huma Holden MD [address] [place] [id number] PCP - General Internal Medicine 12/09/21 Bridger Verduzco MD [address] [place], [place] [phone] Specialist Rheumatology 03/16/23 documented as of this encounter
--- OUTSIDE RECORDS SUMMARY | 2024-12-13 16:34 | XMS_ITS | Encounter Summary ---
Author Organization [facility] Address [address] [place] [address] Care Team Providers Care Roll Bucker Name Role Phone Janie Sidhu MD Primary Care Provider Clement Mcgill MD Primary Care Provider Clement Encinas MD Primary Care Provider Huma Segura MD Primary Care Prov ider Bridger Verduzco MD Unavailable Unavaila ble Encounter Details Date Type Department Care Team Description 02/21/2021 Pt. Non Urgent Medical Question Rheumatology - [address] [address] Bridger Verduzco MD Seropositive rheumatoid arthritis (HCC) (Primary Dx); Osteopenia, unspecified location Social History Tobacco Use Types Packs/Day Years [...] * Telephone Encounter - Ewa Chavez - 02/21/2021 2:23 PM ESTFrom: Janny Amy Almaz To: Moody Verduzco Sent: 02/21/2021 2:15 PM EST Subject: Right Hip Pain Hi, Since I was in to see you I have been managing the pain in my right hip but there are days when it hurts to walk. I want to find out what options are available to me. I know you don't have much longer but could you steer me in the right direction? Some days the pain medication you gave me doesn't work. Thanks,< BR>Janny Muse 50 documented in this encounter Plan of Treatment Not on file documented as of this encounter Visit Diagnoses Diagnosis Seropositive rheumatoid arthritis (HCC)- Primary Rheumatoid arthritis Osteopenia, unspecified location documented in this encounter Care Teams Roll Bucker Relationship Specialty Start Date End Date Janie Sidhu MD PCP - General 09/13/01 02/23/21 Clement Rodney MD PCP - General Internal Medicine 02/24/21 09/10/21 Clement Rodney MD PCP - General Internal Medicine 09/11/21 12/08/21 Huma Holden MD [address] [place] [address] PCP - General Internal Medicine 12/09/21 Bridger Verduzco MD [address] [place] [address] Specialist Rheumatology 03/16/23 documented as of this encounter
--- OUTSIDE RECORDS SUMMARY | 2024-12-13 16:34 | XMS_ITS | Encounter Summary ---
Author Organization [facility] Address [address] [place] [address] Care Team Providers Care Director Outpatient Services Name Role Phone Janie Sidhu MD Primary Care Provider Clement Mcgill MD Primary Care Provider Clement Encinas MD Primary Care Provider Huma Segura MD Primary Care Prov ider Bridger Verduzco MD Unavailable Unavaila ble Encounter Details Date Type Department Care Team Description 06/16/2013 Hospital Medical Records [address] [place] [id number] Marguerite Yañez Social History Tobacco Use Types [...] on filedocumented in this encounter Care Teams Director Outpatient Services Relationship Specialty Start Date End Date Janie Sidhu MD PCP - General 09/13/01 02/23/21 Clement Rodney MD PCP - General Internal Medicine 02/24/21 09/10/21 Clement Rodney MD PCP - General Internal Medicine 09/11/21 12/08/21 Huma Holden MD [address] [place] [address] [id number] PCP - General Internal Medicine 12/09/21 Bridger Verduzco MD [address] [place] [address] Specialist Rheumatology 03/16/23 documented as of this encounter
--- OUTSIDE RECORDS SUMMARY | 2024-12-13 16:34 | XMS_ITS | Encounter Summary ---
Author Organization [facility] Address [address] [place] [address] Care Team Providers Care Field Laborer Name Role Phone Janie Sidhu MD Primary Care Provider Clement Mcgill MD Primary Care Provider Clement Encinas MD Primary Care Provider Huma Segura MD Primary Care Prov ider Bridger Verduzco MD Unavailable Unavaila ble Encounter Details Date Type Department Care Team Description 12/03/2015 Business Doc Medical Records [address] [place] [id number] Abstract, Provider Social History Tobacco Use Types [...] on filedocumented in this encounter Care Teams Field Laborer Relationship Specialty Start Date End Date Janie Sidhu MD PCP - General 09/13/01 02/23/21 Clement Rodney MD PCP - General Internal Medicine 02/24/21 09/10/21 Celment Rodney MD PCP - General Internal Medicine 09/11/21 12/08/21 Huma Holden MD [address] [place] [phone] PCP - General Internal Medicine 12/09/21 Bridger Verduzco MD [address] [place] [address] Specialist Rheumatology 03/16/23 documented as of this encounter
--- OUTSIDE RECORDS SUMMARY | 2024-12-13 16:35 | XMS_ITS | Encounter Summary ---
Author Organization [facility] Address [address] [place] [address] Care Team Providers Care Health Practice Manager Name Role Phone Janie Sidhu MD Primary Care Provider Clement Mcgill MD Primary Care Provider Clement Encinas MD Primary Care Provider Huma Segura MD Primary Care Prov ider Bridger Verduzco MD Unavailable Unavaila ble Encounter Details Date Type Department Care Team Description 08/23/2014 Tight Cooper Report Medical Records [address] [place] [id number] Abhi Clinton Social History Tobacco Use Types [...] on filedocumented in this encounter Care Teams Health Practice Manager Relationship Specialty Start Date End Date Janie Sidhu MD PCP - General 09/13/01 02/23/21 Clement Rodney MD PCP - General Internal Medicine 02/24/21 09/10/21 Clement Rodney MD PCP - General Internal Medicine 09/11/21 12/08/21 Huma Holden MD [address] [place] [address] [id number] PCP - General Internal Medicine 12/09/21 Bridger Verduzco MD [address] [place] [address] Specialist Rheumatology 03/16/23 documented as of this encounter
--- OUTSIDE RECORDS SUMMARY | 2024-12-13 16:35 | XMS_ITS | Encounter Summary ---
Author Organization [facility] Address [address] [place] [address] Care Team Providers Care Fitness Floor Attendant Name Role Phone Janie Sidhu MD Primary Care Provider Clement Mcgill MD Primary Care Provider Clement Encinas MD Primary Care Provider Huma Segura MD Primary Care Prov ider Bridger Verduzco MD Unavailable Unavaila ble Encounter Details Date Type Department Care Team Description 08/23/2014 Network Professional Report Medical Records [address] [place] [id number] Abhi Clinton Social History Tobacco Use Types [...] on filedocumented in this encounter Care Teams Fitness Floor Attendant Relationship Specialty Start Date End Date Janie Sidhu MD PCP - General 09/13/01 02/23/21 Clemetn Rodney MD PCP - General Internal Medicine 02/24/21 09/10/21 Clement Rodney MD PCP - General Internal Medicine 09/11/21 12/08/21 Huma Holden MD [address] [place] [address] [id number] PCP - General Internal Medicine 12/09/21 Bridger Verduzco MD [address] [place] [address] Specialist Rheumatology 03/16/23 documented as of this encounter
--- OUTSIDE RECORDS SUMMARY | 2024-12-13 16:35 | XMS_ITS | Encounter Summary ---
Author Organization [facility] Address [address] [place] [address] Care Team Providers Care Digital Art Director Name Role Phone Janie Sidhu MD Primary Care Provider Clement Mcgill MD Primary Care Provider Clement Encinas MD Primary Care Provider Huma Segura MD Primary Care Prov ider Bridger Verduzco MD Unavailable Unavaila ble Reason for Visit * Reason Comments E-prescribe Rx Request Encounter Details Date Type Department Care Team Description 09/16/2013 Refill Rheumatology - [address] [address] Bridger Verduzco MD E-prescribe Rx Request Social History Tobacco Use Types Packs/Day Years [...] encounter Miscellaneous Notes * Telephone Encounter - aJnie Sidhu MD - 09/18/2013 4:57 PM EDT Brayden. Plaquenil was refilled today #45, no refills, seeing you 09/26/13, please give refills if you plan to continue this. Janie Bullock * Telephone Encounter - Mateo Cason M.A. - 09/18/2013 1:10 PM EDT isa [id number] Component Value Date NA 141 08/23/2012 K 4.3 08/23/2012 CO2 28.9 08/23/2012 CL 103 08/23/2012 BUN 16 08/23/2012 CREAT 0.7 08/30/2013 GLU 79 08/23/2012 CA 10.1 08/23/2012 GFR > 60 08/30/2013 Component Value Date WBC 4.6 08/30/2013 HGB 11.1 08/30/2013 HCT 34.8 08/30/2013 MCV 96.4 08/30/2013 PLTCT 240 08/30/2013 * Telephone Encounter - Jodie Lazaro - 09/18/2013 8:55 AM EDT Patient would like script to be: E-PRESCRIBED/FAXED TO PHARMACY WHEN WAS THE PATIENT'S LAST APPOINTMENT IN ADULT MEDICINE? 09/12/13 WHEN WAS THE LAST TIME THE PATIENT SAW THEIR PCP? Same as above Does patient have an upcoming appointment? No-patient refused appointment, will call back to book appointment (THE MEDICATION REQUESTED IS ON THE MED LIST ABOVE) All of the medications requested were on the CURRENT MEDS list Did you check the Pharmacy information above?: YES Patient wants: 30 -day supply Is this a mail order prescription request ? NO Patients current insurance carrier is: Payor: [employer] POS / Plan: PPO $20 [place] [id number] / ProductType: PPO [id number] documented in this encounter Plan of Treatment Not on file documented as of this encounter Visit Diagnoses Not on filedocumented in this encounter Care Teams Digital Art Director Relationship Specialty Start Date End Date Janie Sidhu MD PCP - General 09/13/01 02/23/21 Clement Rodney MD PCP - General Internal Medicine 02/24/21 09/10/21 Clement Rodney MD PCP - General Internal Medicine 09/11/21 12/08/21 Shira Yancey, Huma Alicia MD [address] [place] [id number] PCP - General Internal Medicine 12/09/21 Bridger Verduzco MD [address] [place] [address] Specialist Rheumatology 03/16/23 documented as of this encounter
== END 2024-12-13 15:15 | disposition home or self-care (01) ==
LOC: HO.RHES 14:12
PROVIDERS: PCP Internal Medicine; Visit Provider Student in an Organized Health Care Education/Training Program
DX: M05.9 Rheumatoid arthritis with rheumatoid factor, unspecified (principal); M85.80 Other specified disorders of bone density and structure, unspecified site; Z78.0 Asymptomatic menopausal state; Z79.620 Long term (current) use of immunosuppressive biologic
CPT/HCPCS: 99214; G2211

== ENCOUNTER 2025-03-26 15:02 | Outpatient (REF) | payer MEDICARE, SELFPAY ==
[2025-03-26 15:11] LABS: MANUAL DIFF FLAG NO
[2025-03-26 15:19] LABS: Hematocrit 35.9 % (37.0-47.0); Hemoglobin 11.9 g/dl (12.0-16.0); Imm Gran Abs Auto 0.01 X10*3/uL (0.00-0.03); Imm Gran Pct Auto 0.2 % (0.0-0.4); Lymphocytes Absolute Auto 2.4 X10*3/uL (1.2-4.9); Mean Corpuscular HGB Conc 33.1 g/dl (31.0-35.0); Mean Corpuscular Hemoglobin 32.1 pg (27.0-33.0); Mean Corpuscular Volume 96.8 fL (80.0-98.0); NRBC Abs Auto 0.000 X10*3/uL (0.0-0.012); NRBC Pct Auto 0.0 /100WBC (0.0-0.2); Platelet Count 229 X10*3/uL (160-400); Red Blood Count 3.71 X10*6/uL (4.20-5.50); White Blood Count 6.0 X10*3/uL (4.8-10.8)
[2025-03-26 16:25] LABS: Alanine Aminotransferase 19 U/L (0-31); Albumin Level 4.5 g/dL (3.5-5.0); Alkaline Phosphatase 82 U/L (39-117); Anion Gap 11 (12-20); Aspartate Amino Transferase 28 U/L (5-31); Blood Urea Nitrogen 17 mg/dL (9-16); Calcium 9.4 mg/dL (8.4-10.2); Carbon Dioxide 29 mmol/L (22-29); Chloride 105 mmol/L (96-108); Estimated Glomerular Filt Rate > 60; Potassium 3.7 mmol/L (3.3-5.1); Sodium 141 mmol/L (135-145); Total Protein 7.0 g/dL (6.5-8.0)
--- OUTSIDE RECORDS SUMMARY | 2025-03-26 21:36 | XMS_ITS | Clinical Summary ---
Author Organization [facility] Address [address] [place] [address] Phone Care Team Providers Care Pen Maker Name Role Phone Huma Feliciano MD Primary Care Prov ider Allergies Active Allergy Reactions Criticality Noted Date Comments Diph,Pertus(Acel),Tet Ped (Pf) 01/07/2012 Other reaction(s): OTHER Throat closure Fluvirin 9330-8432 Other (See Comments) 012 Throat closure Mannitol [...] positive; some erosive disease 2007 Better in [id number] Plaquenil started Apr 2006; eyes checked 08/18, 07/20, 07/21(Dr. Ayoub). 02/20, 04/25, 05/27, 07/25, 02/27, 05/01, 06/02 Methotrexate added, August 2012 Last Assessment & Plan: increase the methotrexate to 6 tab once a week Lab before next visit Immunizations No known immunizations Social History Tobacco [...] COLONOSCOPY 10/23/1995 RSV VACCINE (1 - Risk 50-74 years 1-dose series) 2000 OSTEOPOROSIS SCREENING INITI AL (ONE-TIME) 10/23/2015 COVID-19 [...] Devices Not on file Insurance MEDICARE REPLACEMENT MEDICARE REPLACEMENT MEDICARE REPLACEMENT MEDICARE REPLACEMENT MEDICARE REPLACEMENT MEDICARE REPLACEMENT MEDICARE REPLACEMENT MEDICARE REPLACEMENT [address] [address] MEDICARE REPLACEMENT Care Teams Pen Maker Relationship Specialty Start Date End Date Huma Feliciano MD [address] [place] [phone] PCP - General Internal Medicine 09/25/22 Additional Source Comments The information contained in this document represents components of the legal health record. It is not the complete legal health record.[facility]
--- OUTSIDE RECORDS SUMMARY | 2025-03-26 21:36 | XMS_ITS | Clinical Summary ---
Author Organization [facility] Address [address] [place] [address] Care Team Providers Care Poultry Inseminator Name Role Phone Pcp, No Primary Care Provider Unavailabl e Medications No known medications Active Problems No known active problems Social History Tobacco Use Types Packs/Day Years [...] Density (Females,Ag es 65 and older) 10/23/2015 Influenza Vaccine 11/10/2024 COVID-19 Vaccine ( - 2024-2 6 season) 2024 RSV Vaccine 50 years and old er and Patients (1 - 1-dose 75+ series) 2025 Hepatitis B Vaccines Aged Out No long er eligible based on patient's age to complete this topic Insurance [facility] MEDICARE Care Teams Poultry Inseminator Relationship Specialty Start Date End Date Pcp, No PCP - General General Medicine 09/12/24
--- OUTSIDE RECORDS SUMMARY | 2025-03-26 21:36 | XMS_ITS | Encounter Summary ---
Author Organization [facility] Address [address] [place] [address] Care Team Providers Care Waste Machine Operator Name Role Phone Huma Feliciano MD Primary Care Prov ider Encounter Details Date Type Department Care Team ([facility] st Contact Info) Description 01/25/2025 Results Follow-Up Adult Medicine [address] [phone] Huma Feliciano MD [address] [place] [address] Social History Tobacco Use Types Packs/Day Years [...] for your loved ones. For example, children's attendant or elderly care for an older adult? [...] Date Recorded What is your living situation? Unrecognized valu e 02/17/2024 Comments No Sex and Gender Information Value Date Recorded Sex Assigned at Not on file Legal Sex Female 8:58 AM EST Gender Identity Not on file Sexual Orientation Not on file documented as of this encounter Plan of Treatment Not on file documented as of this encounter Visit Diagnoses Not on filedocumented in this encounter Additional Health Concerns Assessment Noted Time PHQ-9 Depression Total Score: 0 02/24/20 24 8:04 AM EST documented as of this encounter Care Teams Waste Machine Operator Relationship Specialty Start Date End Date Huma Feliciano MD [address] [place] [phone] PCP - General Internal Medicine 12/09/21 documented as of this encounter
--- OUTSIDE RECORDS SUMMARY | 2025-03-26 21:36 | XMS_ITS | Clinical Summary ---
Author Organization [address] Address [address] [place] [phone] Phone Care Team Providers Care Sawmill Manager Name Role Phone Huma Feliciano MD Primary Care Prov ider Allergies Active Allergy Reactions Criticality Noted Date Comments Diph,Pertus(Acel),Tet Ped (Pf) Other 01/07/2012 Throat closure Fluvirin [id number] Other 01/07/2012 Throat closure Mannitol High 10/06/2023 [...] July 2017 Seropositive rheumatoid arthritis 01/12/2005 Overview (01/16/2024): Onset 1994, seropositive;CCP positive; WALKER positive; some erosive disease 2007 Better in [id number] Plaquenil started Apr 2006; eyes checked 08/18, 07/20, 07/21(Dr. Ayoub). 02/20, 04/25, 05/27, 07/25, 02/27, 05/01, 06/02 Methotrexate added, August 2012 Last Assessment & Plan: increase the methotrexate to 6 tab once a week Lab before next visit Assessment & Plan (02/26/2025 8:32 AM EST): She follows with rheumatology regularly. Currently on Methotrexate, Humira. Assessment & Plan (02/25/2024 8:22 AM EST): No recent exacerbations. Follows regularly with rheumatology. Currently on Humira, mtx, folic acid. Encouraged to continue her meds as prescribed by the specialist. Encounters Date Type Department Care Team Description 02/26/2025 8:00 AM EST Office Visit Adult Medicine [address] [phone] Huma Reddy MD Encounter for general adult medical examination without abnormal findings (Primary Dx); Seropositive rheumatoid arthritis (CMS/HCC V24, CMS/HCC V28); Postmenopausal; Advance care planning 01/25/2025 Results Follow-Up Adult Medicine [address] [phone] Huma Reddy MD 01/23/2025 4:10 PM EDT - 01/23/2025 11:59 PM EDT Hospital Encounter Radiology Department - [address] [phone] Encounter for screening mammogram for breast cancer Discharge Disposition: Home or Self Care from Last 3 Months Immunizations Immunization Administration Dates Next Due Influenza trivalent, with pr eservative (Fluzone; Afluria) 6mo and older 01/06/2012 Pfizer SARS-CoV-2 COVID-19, mRNA, LNP-S, preservative free 07/18/2020,06/17/2020 [...] Right OTHER SURGICAL HISTORY age 40's PROCEDURE: VA EXCISION PREPATELLAR BURSA; COMMENT: Left FLEXIBLE SIGMOIDOSCOPY 06/17/04 PROCEDURE: HISTORICAL FLEXIBLE SIGMOIDOSCOPY COLONOSCOPY 08/03/12 [facility] propofol PROCEDURE: HISTORICAL COLONOSCOPY; COMMENT: tics; repeat [...] positive; some erosive disease 2008 Better in [id number] Plaquenil started Apr 2006 Osteopenia 09/21/2017 DX:Osteopenia [...] Alive healthy, remote [place] Other Sister 1 Sister 2 Alive x2 w RA: Dee Dee(e ldest)Dee Dee Ellington & darius (joyce) Social History Tobacco Use Types Packs/Day Years Used Date Smoking Tobacco: Never Smokeless Tobacco: Never Tobacco Cessation:Counseling Given: Not Answered Alcohol Use Standard Drinks/Week Comments No 0.8 (1 standard drink = 0.6 oz p ure alcohol) Housing Instability Answer Date Recorde d Are you worried that in the next 2 months you may not have stable housing? No 02/19/2025 Food Access & Nutrition Answer Date Rec orded Do you have access to a vari ety of food including fruits and vegetables? Yes 02/19/2025 Access to Healthcare Answer Date Record ed Within the last 3 months, ho w many times did you visit the emergency department for your medical care? 0 02/19/2025 Health Literacy Answer Date Recorded How often do you need to hav e someone help you when you read instructions, pamphlets, or other written material from your doctor or pharmacy? Never 02/19/2025 Caregiver: How often do you need to have someone help you when you read instructions, pamphlets, or other written material from your doctor or pharmacy? Not on file 02/19/2025 Financial Risk Answer Date Recorded How hard is it for you to pa y for the very basics like food, housing, medical care, and air conditioning / heating? Not very hard 02/19/2025 Transportation Answer Date Recorded Has the lack of transportati on kept you from meetings, work, or from getting things needed for daily living? No Has the lack of transportati on kept you from medical appointments or from getting medications? No 02/19/2025 Social Isolation Answer Date Recorded How often do you feel lonely or isolated from th ose around you? Never 02/19/2025 Food Risk Answer Date Recorded Within the past 12 months we worried whether our food would run out before we got money to buy more. Never true 02/19/2025 Within the past 12 months th e food we bought just didn't last and we didn't have money to get more. Never true 02/19/2025 Dependent Care Answer Date Recorded Do you need help finding or paying for care for your loved ones. For example, child care associate or elderly care for an older adult? No 02/19/2025 Education Answer Date Recorded Do you think completing more education or training, like finishing a GED, going to college, or learning a trade, would be helpful for you? N/A 02/19/2025 Employment and Income Answer Date Recor ded During the last four weeks, have you been actively looking for work? No 02/19/2025 Living Situation Answer Date Recorded What is your living situation? Unrecognized valu e 02/19/2025 Comments No Sex and Gender Information Value Date Recorded Sex Assigned at Not on file Legal Sex Female 8:58 AM EST Gender Identity Not on file Sexual Orientation Not on file Obstetrics History Para Term AB IAB SAB Ectopic Multiple Livin g Live Births 2 2 2 2 Date Outcome GA Total Labor Labor/2nd/3rd Weight Sex Type Anes PTL Carolina A1 A5 Name Clin Term Term Last Filed Vital Signs Vital Sign Reading Time Taken Comments Blood Pressure 150/70 02/26/2025 8:22 AM EST Pulse 77 02/26/2025 8:01 AM EST Temperature 36.7 C (98 F) 02/26/2025 8:01 AM EST Respiratory Rate 16 02/26/2025 8:01 AM EST Oxygen Saturation 98% 02/26/2025 8:01 AM EST Inhaled Oxygen Concentration - - Weight 62.1 kg (137 lb) 02/26/2025 8:01 AM EST Height 160 cm (5' 3 ) 02/26/2025 8:01 AM EST Body Mass Index 24.27 02/26/2025 8:01 AM EST Plan of Treatment Health Maintenance Due Date Last Done Comments RSV Immunization Adult Patients (1 - Risk 50-74 years 1-dose series) 2000 Osteoporosis Screening (Bone Density Screening) 03/08/2025 03/08/2023, 11/26/2020, 12/01/2016 Social Influencers of Health Screening 02/19/2026 02/19/2025 Falls Risk Assessment 02/26/2026 02/26/2025 Medicare Annual Wellness Visit 02/26/2026 02/26/2025, 02/24/2024 Breast Cancer Screening 01/23/2027 01/24/20, 01/04/2024, 01/04/2024, Additional history exists Cholesterol Screening (Lipid Panel) 12/22/2027 12/21/2022 Colorectal Cancer Screening: Colonoscopy 10/05/2028 10/06/2023 DTaP,Tdap,and Td Vaccines Discontinued 2011, 12/15/1995, 01/24/1990 Influenza Vaccine Discontinued 01/06/2012 Hepatitis C Screening Completed 08/23/2012 COVID-19 Vaccine Discontinued 07/18/2020, 06/17/2020 Zoster Vaccines Completed 08/29/2020, 04/12, 09/15/2011 Pneumococcal Vaccine: 50+ Years Completed 01/01/2022, 12/03/2015, 05/03/2007 Depression Screening Completed 02/19/2025 HIB Vaccines Aged Out No longer eligi [...] Procedure Name Priority Date/Time Associated Diagnosis Comments MG MAMMO DIGITAL SCREENING W SUNNY BILAT Routine 01/23/2025 4:15 PM EDT Encounter for screening mammogram for breast cancer HM COLONOSCOPY Routine 10/06/2023 DXA BONE DENSITY STUDY 1+ SITS AXIAL SKEL Routine 03/08/2023 10:20 AM EST Encounter for general adult medical examination without abnormal findings LIPID PANEL Routine 12/21/2022 HM HEPATITIS C SCREENING Routine 08/23/2012 from Last 3 Months or Most Recently Relevant to Health Maintenance Results * MG Mammo Digital Screening w Sunny bilat (01/23/2025 4:15 PM EDT) Anatomical Region Laterality Modality Breast Bilateral Mammography 01/24/2025 3:17 PM EDT Impressions 01/24/2025 3:24 PM EDT Benign. BI-RADS CATEGORY: 1 - NEGATIVE RECOMMENDATION: Screening bilateral mammogram is recommended in 1 year. Mammo Location: [facility], [address] [place] [address], [phone], . -------- FINAL REPORT -------- Dictated By: Geeta Hay Dictated Date: 01/24/2025 15:17 ET Assigned Physician: Geeta Hay Reviewed and Electronically Signed By: Geeta Hay Signed Date: 01/24/2025 15:24 ET Workstation ID: [id number] Transcribed By: Self Edit Transcribed Date: 01/24/2025 15:19 ET Narrative 01/24/2025 3:24 PM EDT CLINICAL: 74 years old, Female, routine annual exam. COMPARISON: Mammograms dating back to 12/18/2020 with most recent of 01/04/2024. TECHNIQUE: Bilateral MLO and CC views were obtained digitally with 3-D mammogram (digital breast tomosynthesis). Computer-aided detection was utilized in evaluation of this exam (CAD). FINDINGS: There is no evidence of suspicious mass or architectural distortion. No worrisome calcifications are evident. There has been no significant change from prior exam(s). BREAST DENSITY: B - There are scattered areas of fibroglandular density. Procedure Note Geeta Hay MD - 01/24/2025 CLINICAL: 74 years old, Female, routine annual exam. COMPARISON: Mammograms dating back to 12/18/2020 with most recent of01/04/2024. TECHNIQUE: Bilateral MLO and CC views were obtained digitally with 3-Dmammogram (digital breast tomosynthesis). Computer-aided detection wasutilized in evaluation of this exam (CAD). FINDINGS: There is no evidence of suspicious mass or architectural distortion. Noworrisome calcifications are evident. There has been no significantchange from prior exam(s). BREAST DENSITY: B - There are scattered areas of fibroglandular density. IMPRESSION: Benign. BI-RADS CATEGORY: 1 - NEGATIVE RECOMMENDATION: Screening bilateral mammogram is recommended in 1 year. Mammo Location: [facility], [address] [place] [address], [id number], . -------- FINAL REPORT -------- Dictated By: Geeta Hay Dictated Date: 01/24/2025 15:17 ET Assigned Physician: Geeta Hay Reviewed and Electronically Signed By: Geeta Hay Signed Date: 01/24/2025 15:24 ET Workstation ID: [id number] Transcribed By: Self Edit Transcribed Date: 01/24/2025 15:19 ET Huma Feliciano MD IM BI PROCEDURES Final Result * Colonoscopy (10/06/2023) Colonoscopy [...] (World Health Organization Fracture Risk Assessment) [facility] Department of Internal Medicine recommends using National [...] alternative screening schedule based on nate Delarosa., [facility] April 30, 2011 for patients with [...] years. (World HealthOrganization Fracture Risk Assessment) [facility] Department of Internal Medicine recommendsusing National Osteoporosis [...] alternative screening schedule based on nate Delarosa., NEJJanuary 2011 for patients with osteopenia (based on [...] Final Result * (ABNORMAL) Lipid panel (12/21/2022) Pathologist [facility] LDL/HDL Ratio 3 0 - 4 Triglycerides 58 0 - 150 mg/dL Cholesterol 210(A) 0 - 200 mg/dL HDL 76 >=40 mg/dL LDL Cholesterol 123(A) 0 - 100 mg/dL Blood Venous blood specimen / Unknown Result [facility] Historical Provider LAB BLOOD ORDERABLES Consuelo l Result * Hepatitis C Screening (08/23/2012) Pathologist [facility] Hepatitis C Screening abstracted Result [facility] Historical Provider HEALTH MAINTENANCE Final Result from Last 3 Months or Most Recently Relevant to Health Maintenance Insurance [employer] MEDICARE Advance Directives Documents on File Type Date Recorded Patient Neonatal Surgeon Expl anation Advance Directives and Living Will 03/02/2024 3:34 PM health care proxy Care Teams Sawmill Manager Relationship Specialty Start Date End Date Huma Feliciano MD [address] [place] [phone] PCP - General Internal Medicine 12/09/21
== END 2025-03-26 15:03 | disposition home or self-care (01) ==
LOC: HO.LAB 15:02
PROVIDERS: PCP Internal Medicine; Visit Provider Student in an Organized Health Care Education/Training Program
DX: Z79.899 Other long term (current) drug therapy (principal)
CPT/HCPCS: 36415; 80053; 85025; 85652; 86140

== ENCOUNTER 2025-03-30 14:23 | Outpatient (AMB) | payer MEDICARE, SELFPAY ==
--- NOTE | 2025-03-30 14:44 | A.OFFVIS_ITS ---
Vital Signs 03/30/25 14:50 Height 5 ft 3 in Weight 138 lb 10.732 oz BMI 24.6 BP 132/84 Blood Pressure Location Lt brachial Position Sitting Pulse 92 Pulse Source Pulse Oximeter Pulse Oximetry (%) 99 Oxygen Delivery Method Room Air Intake Visit Reasons: 3months Intake Note: Patient presents today for ASyS follow up and test results. State Fire Marshal Required: No Information Interpreted: non-clinical & clinical Accompanied by: Self / Same As Patient Allergies diphtheria,pertussis (acellular),te (From Boostrix Tdap) Allergy (Severe, Verified 03/30/25 14:48) throat closing influenza virus vaccine tv splt 2012- (4 yr,up) (From Fluvirin) Allergy (Severe, Verified 03/30/25 14:48) throat closing mannitol (From Reclast) Allergy (Severe, Verified 03/30/25 14:48) throat closing water for injection,sterile (From Reclast) Allergy (Severe, Verified 03/30/25 14:48) throat closing zoledronic acid (From Reclast) Allergy (Severe, Verified 03/30/25 14:48) throat closing Sulfa (Sulfonamide Antibiotics) Allergy (Intermediate, Verified 03/30/25 14:48) rash Medication List - Last Reconciled 03/30/25 by Charlene Jeronimo MD cholecalciferol (vitamin D3) 25 mcg PO DAILY folic acid 2 mg (2 x 1 mg) PO DAILY Humira(CF) Pen (adalimumab) 40 mg (0.4 mL) subcut Q2W 30 days NS mecobalamin (vitamin B12) 1,000 mcg PO DAILY methotrexate sodium 12.5 mg (5 x 2.5 mg) PO QWEEK 90 days sennosides-docusate sodium 8.6-50 mg (Senokot-S) 1 tab-cap PO BEDTIME PRN HPI Comments Details: Patient is a 74-year-old female with seropositive nonerosive rheumatoid arthritis who presents for follow-up Interval History: Last seen 12/13/2024 with me - On Mtx 15mg weekly, Humira 40mg SC every 2 weeks - Stopped Humira for foot surgery in October, only on Mtx - Even off the Humira she has noticed that she is doing well and has no complaints - Restarted Humira about 4 weeks ago - Doing well so Mtx stopped Today - On Humira 40mg SC every 2 weeks - Tried to stop the methotrexate but this was met with a flare of her disease - Restarted 01/2025 - Today complaining overall achy feeling - Joints themselves don't hurt but she feels overall achy - For example will sit for a long time then get up and hand difficulty straightening Rheumatologic History: RA: Diagnosed in her 20s Increased Mtx and Added Humira 2024 - Mtx reduced due to transaminitis. Resolved after reduction 12/2024 - stopped methotrexate due to remission Osteoporosis: 11/26 DEXA : T score at hip -1.9. T score at LS spine -1.1, FRAX: 43% estimated fracture risk, 4.3% for hip fracture risk Intolerant of alendronate: Heartburn and nausea. Infusion reaction with zoledronic acid: July 2017 T scores: 11/2020: LS -0.8; hip -1.6 02/2023 LS -2.2; hip - 1.1 Current Rheumatology Medications: Humira 40mg SC every 2 weeks [facility] Medical History Osteoarthritis of hands, bilateral Long-term use of immunosuppressant medication Osteoarthritis of hips, bilateral Seropositive rheumatoid arthritis Surgical History S/P foot surgery, left H/O oral surgery Family History Sister Rheumatoid arthritis Social History Household Members: Significant Other Housing: House Are you a primary care management assistant to a significant other at home: No Do you presently have visiting nurse or other home services: No 75 years or older and lives alone: No Alcohol intake: current Alcohol intake frequency: holidays/special occasions only Patient Tobacco Use Status: Never used Tobacco service: No Current occupation: [employer] Physical Exam Vital Signs: Last Vital Signs Pulse 92 03/30/25 14:50 BP 132/84 03/30/25 14:50 Pulse Ox 99 03/30/25 14:50 Oxygen Delivery Method Room Air 03/30/25 14:50 BMI result Body Mass Index 24.6 Results Reviewed Results Reviewed: Laboratory Tests 03/26/25 15:10 WBC 6.0 RBC 3.71 L Hgb 11.9 L Hct 35.9 L Plt Count 229 ESR 9 Sodium 141 Potassium 3.7 D Chloride 105 Carbon Dioxide 29 BUN 17 H Creatinine 0.73 AST 28 ALT 19 C-Reactive Protein < 0.04 Assessment & Plan Assessment & Plan (1) Seropositive rheumatoid arthritis: Comment: Onset probably in 1994. Hydroxychloroquine since 2006 - 01/2023 Methotrexate added in August 2012. Humira added 09/2022 and MTx increased at that time also. stopped mtx 12/2024 due to remission of disease Restarted 01/2025 due to worsening disease Code(s): M05.9 - Rheumatoid arthritis with rheumatoid factor, unspecified Category: Medical Plan: #Seropositive Non erosive RA Patient is a 74 year old with seropositive nonerosive RA No synovitis but still with residual achyness from flare Will cover with prednisone Plan - Methotrexate 12.5mg PO weekly - Folic acid 1mg - Prednisone 5mg daily - Humira 40mg SC every other week - RTC 4 months - Labs prior to visit: CBC, CMP, ESR, CRP (2) Osteopenia after menopause: Comment: 11/26 DEXA : T score at hip -1.9. T score at LS spine -1.1, FRAX: 43% estimated fracture risk, 4.3% for hip fracture risk Intolerant of alendronate: Heartburn and nausea. Infusion reaction with zoledronic acid: July 2017 T scores: 11/2020: LS -0.8; hip -1.6 02/2023 LS -2.2; hip - 1.1 Code(s): M85.80 - Other specified disorders of bone density and structure, unspecified site; Z78.0 - Asymptomatic menopausal state Category: Medical Plan: #Osteopenia Patient with osteopenia particularly in the lumbar spine. Discussed calcium and vitamin-D supplementation which she is already doing. Also discussed weight- bearing exercises which she is already doing as well. Plan - Repeat DEXA, has scheduled for 06/2025 - Vit D supplementation - Weight bearing exercises (3) Adalimumab long-term use: Code(s): Z79.620 - halfway (current) use of immunosuppressive biologic Plan: #Long-term Use of TNF Inhibitors: Humira Discussed with the patient the benefits and risks of TNF inhibitors for the management of the rheumatic condition Benefits include reduce pain, maintenance of remission and reduction of flares as well as ?progression of the disease Risks include injection sites/infusion reactions, serious infections (such as bacterial infections, opportunistic infections), malignancy, delaminating syndromes, autoimmune phenomena, CHF exacerbations, palmar plantar psoriasis and cytopenias Recommended rotating injection sites, and holding medication during and for up to 1 week after resolution of a febrile illness or open skin wound (4) Encounter for methotrexate monitoring: Code(s): Z51.81 - Encounter for therapeutic drug level monitoring; Z79.631 - intermission coordinator (current) use of antimetabolite agent Plan: #Long-term Current Use of Methotrexate Discussed with patient the benefits and risks of methotrexate for managing their rheumatic condition Benefits include reduced pain, reduced mortality, maintenance of remission and reduction of flares Risks include oral ulcers, photosensitivity, hepatotoxicity, hematologic toxicity, pneumonitis, flu-like symptoms (especially day after administration), nodulosis, lymphomas ? Limit alcohol and avoid Bactrim ? Monitoring: CBC, BMP, LFTs every 3-4 months and hepatitis serologies as needed ? Methotrexate is teratogenic. If planning need to discontinue 3 marc hs prior to conception Plan I spent 30 minutes reviewing the record and labs, seeing the patient, discussing the treatment plan and documenting in the medical record Orders: Orders Complete Blood Count Auto Diff 4 Months Z79.899 - Other intermodal owner operator truck driver (current) drug therapy Comprehensive Met. Panel 4 Months Z79.89 - Other intermodal owner operator truck driver (current) drug therapy C Reactive Protein 4 Months Z79.899 - Other intermodal owner operator truck driver (current) drug therapy Erythrocyte Sedimentation Rate 4 Months Z79.899 - Other mcc (current) drug therapy Medications: New prednisone 5 mg PO DAILY 90 tabs 0RF M05.9 - Rheumatoid arthritis with rheumatoid factor, unspecified Refilled Humira(CF) Pen (adalimumab) 40 mg (0.4 mL) subcut Q2W 2 ea 4RF 30 days NS M05.9 - Rheumatoid arthritis with rheumatoid factor, unspecified methotrexate sodium 12.5 mg (5 x 2.5 mg) PO QWEEK 65 tabs 1RF 90 days M05.9 - Rheumatoid arthritis with rheumatoid factor, unspecified folic acid Daily except methotrexate days 2 mg (2 x 1 mg) PO DAILY 180 tabs 1RF M05.9 - Rheumatoid arthritis with rheumatoid factor, unspecified Discontinued prednisone Take 3 tablets for 5 days then 2 tablets for 5 days then 1 tablet for 5 days and stop Discontinued Reason: Doctor's Order 5 mg PO DIRECTED 30 tabs 0RF M05.9 - Rheumatoid arthritis with rheumatoid factor, unspecified Coding Level of Care Code Est Pt Level 4 (68294) Add On Problem Visit Only Diagnoses Seropositive rheumatoid arthritis M05.9 Osteopenia after menopause M85.80; Z78.0 Adalimumab long-term use Z79.620 Encounter for methotrexate monitoring Z51.81; Z79.631
[2025-03-30 14:50] VITALS: BP 132/84; PULSE 92; O2SAT 99; BMI 24.6
--- OUTSIDE RECORDS SUMMARY | 2025-03-30 15:50 | XMS_ITS | Clinical Summary ---
Author Organization [address] Address [address] [place] [phone] Phone Care Team Providers Care Clerical Methods Analyst Name Role Phone Huma Feliciano MD Primary Care Prov ider Allergies Active Allergy Reactions Criticality Noted Date Comments Diph,Pertus(Acel),Tet Ped (Pf) Other 01/07/2012 Throat closure Fluvirin [id number] Other 01/07/2012 Throat closure Mannitol High 10/06/2023 [...] positive; some erosive disease 2007 Better in [phone] Plaquenil started Apr 2006; eyes checked 08/18, [...] 8:00 AM EST Office Visit Adult Medicine [address] [phone] Huma Reddy MD Encounter for general adult medical examination without abnormal findings (Primary Dx); Seropositive rheumatoid arthritis (CMS/HCC V24, CMS/HCC V28); Postmenopausal; Advance care planning 01/25/2025 Results Follow-Up Adult Medicine [address] [phone] Huma Reddy MD 01/23/2025 4:10 PM EDT - 01/23/2025 11:59 PM EDT Hospital Encounter Radiology Department - [address] [phone] Encounter for screening mammogram for breast cancer [...] Right OTHER SURGICAL HISTORY age 40's PROCEDURE: TN EXCISION PREPATELLAR BURSA; COMMENT: Left FLEXIBLE SIGMOIDOSCOPY 06/17/04 PROCEDURE: HISTORICAL FLEXIBLE SIGMOIDOSCOPY COLONOSCOPY 08/03/12 [facility] propofol PROCEDURE: HISTORICAL COLONOSCOPY; COMMENT: tics; [...] positive; some erosive disease 2008 Better in [phone] Plaquenil started Apr 2006 Osteopenia 09/21/2017 DX:Osteopenia [...] for your loved ones. For example, children's lunchroom supervisor or elderly care for an older adult? [...] 02/26/2025 8:01 AM EST Plan of Treatment Upcoming Encounters Date Type Department Care Team (Late st Contact Info) Description 06/15/2025 9:00 AM EST Appointment [facility] Bone Density [address] [place] [address] Health Maintenance Due Date Last Done Comments [...] Encounter for screening mammogram for breast cancer COLONOSCOPY Routine 10/06/2023 DXA BONE DENSITY STUDY [...] is recommended in 1 year. Mammo Location: [facility], [address] [place] [address], [phone], . -------- FINAL REPORT -------- Dictated By: Geeta Hay Dictated Date: 01/24/2025 15:17 ET Assigned Physician: Geeta Hay Reviewed and Electronically Signed By: Geeta Hay Signed Date: 01/24/2025 15:24 ET Workstation ID: [id number] Transcribed By: Self Edit Transcribed Date: 01/24/2025 [...] is recommended in 1 year. Mammo Location: [facility], [address] [place] [address], [phone], . -------- FINAL REPORT -------- Dictated By: Geeta Hay Dictated Date: 01/24/2025 15:17 ET Assigned Physician: Geeta Hay Reviewed and Electronically Signed By: Geeta Hay Signed Date: 01/24/2025 15:24 ET Workstation ID: [id number] Transcribed By: Self Edit Transcribed Date: 01/24/2025 15:19 ET Huma Feliciano MD IMG BI PROCEDURES Final Result * Colonoscopy (10/06/2023) [...] (World Health Organization Fracture Risk Assessment) [facility] Department of Internal Medicine recommends using National [...] screening schedule based on nate Delarosa., [facility] April 30, 2011 for patients with [...] years. (World HealthOrganization Fracture Risk Assessment) [facility] Department of Internal Medicine recommendsusing National Osteoporosis [...] screening schedule based on sarah Delarosa al., NEJMJanuary 2011 for patients with osteopenia (based [...] Final Result * (ABNORMAL) Lipid panel (12/21/2022) LDL/HDL Ratio 3 0 - 4 Triglycerides 58 0 - 150 mg/dL Cholesterol 210(A) 0 - 200 mg/dL HDL 76 >=40 mg/dL LDL Cholesterol 123(A) 0 - 100 mg/dL Blood Venous blood specimen / Unknown Result [facility] Historical Provider LAB BLOOD ORDERABLES Consuelo l Result * Hepatitis C Screening (08/23/2012) Pathologist [facility] Hepatitis C Screening abstracted Historical Provider HEALTH MAINTENANCE Final Result from Last 3 Months or Most Recently Relevant to Health Maintenance Insurance MEDICARE Advance Directives Documents on File Type Date Recorded Patient Manager Cosmetics Expl anation Advance Directives and Living Will 03/02/2024 3:34 PM health care proxy Care Teams Clerical Methods Analyst Relationship Specialty Start Date End Date Huma Feliciano MD [address] [place] [phone] PCP - General Internal Medicine 12/09/21
--- OUTSIDE RECORDS SUMMARY | 2025-03-30 15:50 | XMS_ITS | Clinical Summary ---
Author Organization [facility] Address [address] [place] [address] Phone Care Team Providers Care Jewelry Sales Associate Name Role Phone Huma Feliciano MD Primary Care Prov ider Allergies Active Allergy Reactions Criticality Noted Date Comments Diph,Pertus(Acel),Tet Ped (Pf) 01/07/2012 Other reaction(s): OTHER Throat closure Fluvirin 8514-7502 Other (See Comments) 012 Throat closure Mannitol [...] positive; some erosive disease 2007 Better in [phone] Plaquenil started Apr 2006; eyes checked 08/18, [...] REPLACEMENT MEDICARE REPLACEMENT MEDICARE REPLACEMENT MEDICARE REPLACEMENT [address] [address] MEDICARE REPLACEMENT Care Teams Jewelry Sales Associate Relationship Specialty Start Date End Date Huma Feliciano MD [address] [place] [phone] PCP - General Internal Medicine 09/25/22 Additional Source Comments The information contained in this document represents components of the legal health record. It is not the complete legal health record.[facility]
--- OUTSIDE RECORDS SUMMARY | 2025-03-30 15:50 | XMS_ITS | Encounter Summary ---
Author Organization [facility] Address [address] [place] [address] Care Team Providers Care Ancient Art Curator Name Role Phone Huma Feliciano MD Primary Care Prov ider Encounter Details Date Type Department Care Team ([facility] st Contact Info) Description 01/25/2025 Results Follow-Up Adult Medicine [address] [phone] Huma Feliciano MD [address] [place] [address] Social History Tobacco Use Types Packs/Day Years [...] for your loved ones. For example, child study team director or elderly care for an older adult? [...] as of this encounter Plan of Treatment Upcoming Encounters Date Type Department Care Team (Late st Contact Info) Description 06/15/2025 9:00 AM EST Appointment [facility] Bone Density [address] [place] [address] documented as of this encounter Visit Diagnoses Not on filedocumented in this encounter Additional Health Concerns Assessment Noted Time PHQ-9 Depression Total Score: 0 02/24/20 24 8:04 AM EST documented as of this encounter Care Teams Ancient Art Curator Relationship Specialty Start Date End Date Huma Feliciano MD [address] [place] [phone] PCP - General Internal Medicine 12/09/21 documented as of this encounter
--- OUTSIDE RECORDS SUMMARY | 2025-03-30 15:50 | XMS_ITS | Clinical Summary ---
Author Organization [facility] Address [address] [place] [address] Care Team Providers Care Envelope Folding Machine Adjuster Name Role Phone Pcp, No Primary Care [...] patient's age to complete this topic Insurance [facility] MEDICARE Care Teams Envelope Folding Machine Adjuster Relationship Specialty Start Date End Date Pcp, No PCP - General General Medicine 09/12/24
== END 2025-03-30 15:20 | disposition home or self-care (01) ==
LOC: HO.RHES 14:24
PROVIDERS: PCP Internal Medicine; Visit Provider Student in an Organized Health Care Education/Training Program
DX: M05.9 Rheumatoid arthritis with rheumatoid factor, unspecified (principal); M85.80 Other specified disorders of bone density and structure, unspecified site; Z78.0 Asymptomatic menopausal state; Z79.620 Long term (current) use of immunosuppressive biologic; Z51.81 Encounter for therapeutic drug level monitoring; Z79.631 Long term (current) use of antimetabolite agent
CPT/HCPCS: 99214; G2211

== ENCOUNTER → 2025-03-30 14:23 | Outpatient (BNVA) | payer MEDICARE, SELFPAY | PROVIDERS: PCP Internal Medicine; Visit Provider Student in an Organized Health Care Education/Training Program | DX: M05.9 Rheumatoid arthritis with rheumatoid factor, unspecified (principal); M05.742 Rheumatoid arthritis with rheumatoid factor of left hand without organ or systems involvement; M05.741 Rheumatoid arthritis with rheumatoid factor of right hand without organ or systems involvement; M05.752 Rheumatoid arthritis with rheumatoid factor of left hip without organ or systems involvement; M05.751 Rheumatoid arthritis with rheumatoid factor of right hip without organ or systems involvement; M85.80 Other specified disorders of bone density and structure, unspecified site; Z51.81 Encounter for therapeutic drug level monitoring; Z79.631 Long term (current) use of antimetabolite agent; Z79.620 Long term (current) use of immunosuppressive biologic | CPT/HCPCS: 99212 ==